=== PATIENT | male | born 1940 | race Caucasian/White ===

== ENCOUNTER 2017-07-12 18:51 | Inpatient (IN) | payer OTHER ==
[2017-07-12 20:20] LABS: Absolute Monocytes 1.1 K/uL (0.1-1.3); Absolute Neutrophil 4.4 K/uL (1.8-8.0); Basophils % 0.9 % (0-1.3); Eosinophils % 1.4 % (0-4.4); Hematocrit 31.1 % (39.6-49.0); Lymphocytes % 26.1 % (15.3-44.8); MCH 29.2 pg (27.0-35.0); MPV 7.7 fL (7.6-11.3); RBC Red Blood Cell Count 3.61 M/uL (4.33-5.43)
[2017-07-12 20:29] LABS: Potassium 5.5 mEq/L (3.6-5.0)
[2017-07-12 20:30] LABS: Albumin 2.8 g/dL (3.2-5.5); Bilirubin Total 0.3 mg/dL (0.3-1.2); Protein, Total 6.9 g/dL (6.0-8.3)
--- NOTE | 2017-07-12 21:17 | RAD REPORT ---
EXAM DESCRIPTION: CT - Abdomen Pelvis W Contrast - 07/12/2017 8:54 pm CLINICAL HISTORY: Abdominal pain /sacral decubitus ulcer COMPARISON: none. TECHNIQUE: Computed axial tomography of the abdomen pelvis was obtained. 100 cc Isovue-300 was admin istered intravenously. Oral contrast was not requested which limits evaluation of bowel. All CT scans are performed using dose optimization technique as appropriate and may include automated exposure control or mA/KV adjustment according to patient size. FINDINGS: Gallstones are seen without gallbladder wall thickening. A diverticulum stems from the duodenum. The liver, spleen, pancreas, and adrenals appear unremarkable. Small bilateral renal calculi are present without hydronephrosis. Mild renal cortical thinning is pre sent perhaps secondary prior inflammation. There is no evidence of diverticulitis. The appendix is normal. A soft tissue ulceration is present adjacent to coccyx. Subtle cortical irregularity and mild scleros is involves the posterior coccyx. Extensive vascular calcifications are present IMPRESSION: Cholelithiasis without cholecystitis . Soft tissue ulceration adjacent to the coccyx. Subtle cortical irregularity and mild sclerosis involv es the posterior coccyx. A mild osteomyelitis is suspected
[2017-07-12] MEDS ORDERED: PIPERACILLIN-TAZO-DEXTROSE,ISO 3.375 GM/50 ML BAG ONE (22:02)
[2017-07-12] MEDS ORDERED: VANCOMYCIN/NS 1 gm 1 GM/250 ML BAG ONE (22:02)
--- NOTE | 2017-07-12 22:02 | RAD REPORT ---
EXAM DESCRIPTION: RAD - Foot Left 3 View - 07/12/2017 8:54 pm CLINICAL HISTORY: Left Foot pain /wound FINDINGS: No fracture or dislocation is seen. Vascular calcifications are present An ulceration involves the posterior hindfoot. An underlying calcaneal destructive lesion is not seen .
[2017-07-12] MEDS ORDERED: ONDANSETRON 4 MG/2 ML VIAL IV PRN (23:44)
--- NOTE | 2017-07-13 01:06 | ER ---
Nurse's Notes [facility] Name: Amari Espinal Sr Age: 76 yrs Sex: Male : 1940 Arrival Date: 07/12/2017 Time: 18:52 Bed 7 Private MD: Diagnosis: Osteomyelitis;Non-healing wound;Sacral decubitus ulcer Presentation: 07/12 19:19 Presenting complaint: Patient states: Pt daughter brought pt in for Low BP, home health bp nurse took BP and it was 70's systolic. Pt is AOx3. Pt has wounds on left heel and sacrum that are dressed by home health. Denies NVD or fever. Transition of care: patient was not received from another setting of care. Onset of symptoms was July 11, 2017. Care prior to arrival: None. 19:19 Method Of Arrival: Wheelchair bp 19:19 Acuity: TEAGAN 3 bp Triage Assessment: 19:22 General: Appears in no apparent distress. uncomfortable, Behavior is calm, cooperative. bp Pain: Complains of pain in sacrum Pain does not radiate. Neuro: Level of Consciousness is awake, alert, obeys commands, Oriented to person, place, time. Cardiovascular: Denies chest pain. Respiratory: Airway is patent Respiratory effort is even, unlabored, Respiratory pattern is regular, symmetrical. GI: No signs and/or symptoms were reported involving the gastrointestinal system. : No signs and/or symptoms were reported regarding the genitourinary system. Derm: Skin is pink, warm \T\ dry. Decubitus located on left sacrum heel(s). Musculoskeletal: Parent/caregiver report the patient having hemiplegia of L side. Historical: - Allergies: 19:22 No Known Allergies; bp - Home Meds: 19:22 Aricept 5 mg Oral tab 1 tab once daily [Active]; aspirin 81 mg Oral chew [Active]; bp atorvastatin 40 mg Oral tab 1 tab once daily [Active]; Eliquis 2.5 mg Oral tab 2 tabs [Active]; famotidine 10 mg Oral tab [Active]; GlycoLax 17 gram/dose Oral powd once daily [Active]; ipratropium bromide 0.02 % inhalation soln [Active]; metoprolol tartrate 25 mg Oral tab 1 tab 2 times per day [Active]; Namenda Oral [Active]; 19:28 donepezil 5 mg oral tab 1 tab once daily [Active]; magnesium oxide 400 mg Oral tab bp [Active]; rosuvastatin 5 mg oral tab 1 tab once daily [Active]; memantine 5 mg oral tab 2 tabs 2 times per day [Active]; carvedilol 6.25 mg oral tab 1 tab 2 times per day [Active]; - PMHx: 19:22 Atrial Fib; COPD; Dementia; hemiplagia affecting left side; Hyperlipidemia; PVD; TIA; bp - Immunization history:: Adult Immunizations up to date. - Social history:: Smoking status: Patient/guardian denies using tobacco. Screenin:25 Abuse screen: Denies threats or abuse. Nutritional screening: No deficits noted. bp Tuberculosis screening: No symptoms or risk factors identified. Fall Risk Fall in past 12 months (25 points). Secondary diagnosis (15 points) Gait- Impaired (20 pts.). Assessment: 19:59 General: see triage assessment. tl2 22:09 Reassessment: Patient appears in no apparent distress at this time. Patient and/or tl2 family updated on plan of care and expected duration. Pain level reassessed. Patient is alert, oriented x 3, equal unlabored respirations, skin warm/dry/pink. pt resting, awaiting further orders, family at bedside. 23:30 Reassessment: Patient appears in no apparent distress at this time. Patient and/or tl2 family updated on plan of care and expected duration. Pain level reassessed. Patient is alert, oriented x 3, equal unlabored respirations, skin warm/dry/pink. 07/13 00:30 Reassessment: Patient appears in no apparent distress at this time. Patient and/or tl2 family updated on plan of care and expected duration. Pain level reassessed. Patient is alert, oriented x 3, equal unlabored respirations, skin warm/dry/pink. 01:02 Reassessment: Dr. Pratt ordered for nurses on floor to call him about specific wound tl2 dressings. Vital Signs: 07/12 19:22 BP 124 / 51; Pulse 80; Resp 20; Temp 98(O); Pulse Ox 100% on R/A; Weight 74.84 kg; bp Height 5 ft. 7 in. (170.18 cm); Pain 4/10; 20:00 BP 123 / 59; Pulse 78; Resp 18; Pulse Ox 100% on R/A; tl2 20:09 BP 121 / 49; Pulse 83; Resp 18; Pulse Ox 99% on R/A; mt 21:06 BP 131 / 66; Pulse 80; Resp 18; Pulse Ox 100% on R/A; mt 22:09 BP 131 / 57; Pulse 78; Resp 18; Pulse Ox 95% on R/A; tl2 22:49 BP 124 / 48; Pulse 74; Resp 18; Pulse Ox 97% on R/A; mt 23:54 BP 141 / 80; Pulse 79; Resp 18; Pulse Ox 98% on R/A; bp 07/13 00:33 BP 147 / 63; Pulse 79; Resp 18; Pulse Ox 98% on R/A; mt 01:03 BP 143 / 59; Pulse 84; Resp 18; Pulse Ox 98% on R/A; tl2 07/12 19:22 Body Mass Index 25.84 (74.84 kg, 170.18 cm) bp ED Course: 07/12 18:52 Patient arrived in ED. al2 19:19 Denys Roach, JARRED is Primary Nurse. bp 19:20 Christopher Ordoñez MD is Attending Physician. ps1 19:21 Triage completed. bp 19:22 Arm band placed on right wrist. bp 19:25 Patient has correct armband on for positive identification. Bed in low position. Call bp light in reach. Side rails up X2. Adult w/ patient. 20:02 Inserted saline lock: 20 gauge in right antecubital area, using aseptic technique. tl2 Blood collected. placed by joseph Rodriguez. 20:03 Radiology exam delayed due to lab results not completed at this time. (BUN/Creatinine). sj 21:00 CT completed. Patient tolerated procedure well. Patient moved to CT via stretcher. Patient moved back from CT. 21:59 Inserted saline lock: 20 gauge in left forearm, using aseptic technique. IV tl2 discontinued, intact, bleeding controlled, No redness/swelling at site. Pressure dressing applied. 07/13 00:29 Efrain Chapa MD is Hospitalizing Provider. ps1 01:03 No provider procedures requiring assistance completed. tl2 01:03 Patient admitted, IV remains in place. tl2 Administered Medications: 07/12 21:58 Drug: Zosyn 3.375 grams Route: IVPB; Infused Over: 60 mins; Site: left forearm; tl2 22:30 Follow up: IV Status: Completed infusion tl2 22:38 Drug: vancoMYCIN 1 grams Route: IVPB; Infused Over: 2 hrs; Site: left forearm; tl2 07/13 00:15 Follow up: IV Status: Completed infusion tl2 Outcome: 00:30 Decision to Hospitalize by Provider. ps1 01:03 Admitted to Med/surg accompanied by tech, family with patient, via stretcher, room 209, tl2 with chart, Report called to ERIKA Daly 01:03 Condition: stable 01:03 Discharge instructions given to patient, family, Instructed on the need for admit. 01:05 Patient left the ED. tl2 Signatures: Nura Pierre Susan sj Knox, Taylor, JARRED RN tl2 Jennifer Yo mt, Brian, RN RN bp Christopher Ordoñez MD MD ps1 Darlene, Katerina julien2
--- NOTE | 2017-07-13 01:06 | EDPHYS ---
Physician Documentation [facility] Name: Amari Espinal Sr Age: 76 yrs Sex: Male : 1940 Arrival Date: 07/12/2017 Time: 18:52 Bed 7 Private MD: ED Physician Christopher Ordoñez HPI: 07/13 00:22 This 76 yrs old Male presents to ER via Wheelchair with complaints of LOW ps1 BLOOD PRESSURE. 00:22 reportedly home healthcare nurse states that he had low blood pressure. On presentation ps1 he states that he feels well and his blood pressure is WNL. Family at bedside state that his doctor was concerned for osteomyelitis in his foot and his decubitus sacral ulcer. She states that he does not get rolled appropriately and it has been a struggle to get the other family members to perform appropriate care. . Historical: - Allergies: 07/12 19:22 No Known Allergies; bp - Home Meds: 19:22 Aricept 5 mg Oral tab 1 tab once daily [Active]; aspirin 81 mg Oral chew [Active]; bp atorvastatin 40 mg Oral tab 1 tab once daily [Active]; Eliquis 2.5 mg Oral tab 2 tabs [Active]; famotidine 10 mg Oral tab [Active]; GlycoLax 17 gram/dose Oral powd once daily [Active]; ipratropium bromide 0.02 % inhalation soln [Active]; metoprolol tartrate 25 mg Oral tab 1 tab 2 times per day [Active]; Namenda Oral [Active]; 19:28 donepezil 5 mg oral tab 1 tab once daily [Active]; magnesium oxide 400 mg Oral tab bp [Active]; rosuvastatin 5 mg oral tab 1 tab once daily [Active]; memantine 5 mg oral tab 2 tabs 2 times per day [Active]; carvedilol 6.25 mg oral tab 1 tab 2 times per day [Active]; - PMHx: 19:22 Atrial Fib; COPD; Dementia; hemiplagia affecting left side; Hyperlipidemia; PVD; TIA; bp - Immunization history:: Adult Immunizations up to date. - Social history:: Smoking status: Patient/guardian denies using tobacco. ROS: 07/13 00:22 Unable to obtain ROS due to baseline dementia. ps1 Exam: 00:22 Constitutional: This is a well developed, well nourished patient who is awake, alert, ps1 and in no acute distress. Head/Face: Normocephalic, atraumatic. Eyes: Pupils equal round and reactive to light, extra-ocular motions intact. Lids and lashes normal. Conjunctiva and sclera are non-icteric and not injected. Chest/axilla: Normal chest wall appearance and motion. Nontender with no deformity. No lesions are appreciated. Cardiovascular: Regular rate and rhythm. No gallops, murmurs, or rubs. Normal PMI, no JVD. No pulse deficits. Respiratory: Lungs have equal breath sounds bilaterally, clear to auscultation and percussion. No rales, rhonchi or wheezes noted. No increased work of breathing, no retractions or nasal flaring. Abdomen/GI: Soft, non-tender, with normal bowel sounds. No distension or tympany. No guarding or rebound. No evidence of tenderness throughout. 00:22 Back: large stage 4 decubitus ulcer on left sacral area. dressed, no purulence. . 00:22 Musculoskeletal/extremity: non-healing wound on heel of left foot with surrounding erythema. Wet dressing. . 00:22 Neuro: contracted extremities and weakness of left side.. Vital Signs: 07/12 19:22 BP 124 / 51; Pulse 80; Resp 20; Temp 98(O); Pulse Ox 100% on R/A; Weight 74.84 kg; bp Height 5 ft. 7 in. (170.18 cm); Pain 4/10; 20:00 BP 123 / 59; Pulse 78; Resp 18; Pulse Ox 100% on R/A; tl2 20:09 BP 121 / 49; Pulse 83; Resp 18; Pulse Ox 99% on R/A; mt 21:06 BP 131 / 66; Pulse 80; Resp 18; Pulse Ox 100% on R/A; mt 22:09 BP 131 / 57; Pulse 78; Resp 18; Pulse Ox 95% on R/A; tl2 22:49 BP 124 / 48; Pulse 74; Resp 18; Pulse Ox 97% on R/A; mt 23:54 BP 141 / 80; Pulse 79; Resp 18; Pulse Ox 98% on R/A; bp 16 00:33 BP 147 / 63; Pulse 79; Resp 18; Pulse Ox 98% on R/A; mt 01:03 BP 143 / 59; Pulse 84; Resp 18; Pulse Ox 98% on R/A; tl2 07/12 19:22 Body Mass Index 25.84 (74.84 kg, 170.18 cm) bp MDM: 07/12 19:57 Patient medically screened. ps1 07/13 00:27 Data reviewed: vital signs, nurses notes, lab test result(s), radiologic studies, CT ps1 scan, plain films. ED course: ESR and imaging c/w osteomyelitis. IVF and antibiotics initiated. Will admit for further evaluation. . 07/12 20:00 Order name: CBC with Diff ps1 07/12 20:00 Order name: CMP ps1 07/12 20:00 Order name: ESR ps1 07/12 20:23 Order name: CBC with Automated Diff; Complete Time: 21:17 EDMS 07/12 20:28 Order name: Comprehensive Metabolic Panel; Complete Time: 21:17 EDMS 07/12 20:38 Order name: Sedimentation Rate, Westergren; Complete Time: 21:17 EDMS 07/12 20:00 Order name: Foot Left 3 View XRAY ps1 07/12 20:00 Order name: CT Abd/Pelvis - W/Contrast ps1 07/12 21:19 Order name: CT; Complete Time: 21:37 EDMS 07/12 22:03 Order name: RAD; Complete Time: 22:13 EDMS Administered Medications: 07/12 21:58 Drug: Zosyn 3.375 grams Route: IVPB; Infused Over: 60 mins; Site: left forearm; tl2 22:30 Follow up: IV Status: Completed infusion tl2 22:38 Drug: vancoMYCIN 1 grams Route: IVPB; Infused Over: 2 hrs; Site: left forearm; tl2 07/13 00:15 Follow up: IV Status: Completed infusion tl2 Disposition: 00:30 Chart complete. ps1 Disposition: 07/13/17 00:30 Hospitalization ordered by Efrain Chapa for Inpatient Admission. Preliminary diagnosis are Osteomyelitis, Non-healing wound, Sacral decubitus ulcer. - Bed requested for Telemetry/MedSurg (Inpatient). - Status is Inpatient Admission. tl2 - Condition is Stable. - Problem is an ongoing problem. - Symptoms have worsened. UTI on Admission? No Signatures: Dispatcher [facility] Kendra Hercules RN RN mw Diana Velázquez RN RN tl2 Denys Roach, RN RN bp Christopher Ordoñez MD MD ps1
[2017-07-13] MEDS ORDERED: FENTANYL CITR 100 MCG/2 ML IV ONE ×2 (01:41→15:47)
[2017-07-13] MEDS ORDERED: LORazepam 2 MG/ML VIAL IV ONE ×2 (01:41→15:46)
[2017-07-13] MEDS: NA CHLORIDE 0.9% 1,000 ML IV SCH ×3 (01:50→20:29)
[2017-07-13] MEDS: Levofloxacin500mg IV 500 MG/100 ML BAG IV SCH ×2 (02:05→23:38)
[2017-07-13 06:17] LABS: Absolute Lymphocytes (CBC) 2.9 K/uL (0.7-4.9); Absolute Monocytes 1.3 K/uL (0.1-1.3); Absolute Neutrophil 4.4 K/uL (1.8-8.0); Basophils % 0.9 % (0-1.3); Eosinophils % 1.8 % (0-4.4); Hematocrit 29.5 % (39.6-49.0); Lymphocytes % 33.2 % (15.3-44.8); MCH 28.1 pg (27.0-35.0); MCV 87.1 fL (80-100); MPV 7.6 fL (7.6-11.3); Monocytes % 14.9 % (3.3-12.3); RBC Red Blood Cell Count 3.39 M/uL (4.33-5.43)
[2017-07-13 06:20] LABS: Potassium 4.5 mEq/L (3.6-5.0)
--- NOTE | 2017-07-13 07:23 | P.HP ---
Certification for Inpatient Patient admitted to: Inpatient With expected LOS: >2 Midnights Patient will require the following post-hospital care: None Practitioner: I am a practitioner with admitting privileges, knowledge of patient current condition, hospital course, and medical plan of care. Services: Services provided to patient in accordance with Admission requirements found in Title 42 Section 412.3 of the Code of Federal Regulations Patient History Date of Service: 07/13/17 Reason for admission: Osteomyelitis History of Present Illness: Patient is a 76-year-old gentleman came into the hospital was worsening erythema of the right foot. Patient has been treated as an outpatient by his manager beauty at [facility]. Patient was scheduled to get a MRI of his foot however this had to be canceled as patient could not be still. He does has significant erythema on the right foot as well as a deep wound to the left heel. He also has some inflammatory changes per his CT scan around his coccyx where his sacral decubitus ulcer is located. Patient be admitted to the hospital for further evaluations of these arterial & diabetic ulcers of his extremities as well as pressure ulcer on his sacrum. Patient has been quite ill the last year. Patient had a stroke and was transfer to [facility]. He was treated and released to [place]. According to the family he developed a sacral decubitus ulcer. He was transferred to our hospital with another stroke. Patient's family decided to take care of him at home. Has a 24/7 caregiver for 9 hr during the day. Patient also has a lot of family that is very involved in his care. Patient is very debilitated and his nourishment has just started picking up after he had dysphagia from a stroke. The her numerous family members with him at this time and they all seem to be fairly aware of his medical conditions. They also seem very involved in his day-to-day care. Allergies No Known Allergies Allergy (Verified 07/13/17 02:35) Home Medications: Alprazolam [Alprazolam] 1 mg PO DAILY PRN 07/13/17 Apixaban [Eliquis] 5 mg PO BID 07/13/17 Aspirin [Aspirin] 81 mg PO DAILY 07/13/17 Carvedilol [Carvedilol] 1 tab PO BID 07/13/17 Cefuroxime Axetil [Cefuroxime] 500 mg PO BID 07/13/17 Collagenase [Santyl Ointment*] 1 appl TOP DAILY 07/13/17 Donepezil HCl [Donepezil HCl] 5 mg PO DAILY 07/13/17 Famotidine [Pepcid*] 1 tab PO DAILY 07/13/17 Ipratropium/Albuterol Sulfate [Iprat-Albut 0.5-3(2.5) mg/3 ml] 1 puff IH QID Magnesium Oxide [Mag 0X Tab] 400 mg PO DAILY 07/13/17 Memantine HCl [Memantine HCl] 5 mg PO BID 07/13/17 Multivitamin [Daily Multiple Vitamin] 1 each PO DAILY 07/13/17 Rosuvastatin Calcium [Rosuvastatin Calcium] 5 mg PO BEDTIME 07/13/17 Zinc Sulfate [Zinc Sulfate*] 220 mg PO DAILY 07/13/17 - Past Medical/Surgical History Has patient received pneumonia vaccine in the past: Yes Diabetic: No -: Stroke -: Hypertension -: Dementia -: Dyslipidemia -: COPD -: Right lower extremity peripheral arterial stent - Family History Sister Medical History: Cancer - Social History Smoking Status: Former smoker Alcohol use: No CD- Drugs: No Caffeine use: Yes Place of Residence: Home Review of Systems 10-point ROS is otherwise unremarkable Physical Examination - Vital Signs Temperature: 98.3 F Blood Pressure: 129/63 Pulse: 78 Respirations: 18 Pulse Ox (%): 95 - Physical Exam General: Alert, In no apparent distress, Oriented x3 HEENT: Atraumatic, Normocephalic Neck: Supple, 2+ carotid pulse no bruit, JVD not distended Respiratory: Clear to auscultation bilaterally, Normal air movement Cardiovascular: Regular rate/rhythm, Normal S1 S2, Systolic murmur Gastrointestinal: Normal bowel sounds, Soft and benign, Non-distended Musculoskeletal: No clubbing, No swelling Integumentary: Diabetic ulcer, Pressure ulcer, Arterial ulcer Neurological: Normal speech, Sensation intact, Cranial nerves 3-12 intact, Abnormal strength, Abnormal affect (Black) - Studies Laboratory Data (last 24 hrs) 07/12/17 20:05: Sodium 131 L, Potassium 5.5 H, BUN 21 H, Creatinine 1.22, Glucose 111, Total Bilirubin 0.3, AST 28, ALT 19, Alkaline Phosphatase 62 07/12/17 20:05: WBC 7.7, Hgb 10.6 L, Hct 31.1 L, Plt Count 339 Assessment & Plan - Problems (Diagnosis) (1) CVA (cerebral vascular accident) Current Visit: Yes Status: Acute (2) Osteomyelitis Current Visit: Yes Status: Acute (3) Sacral decubitus ulcer, stage IV Current Visit: Yes Status: Acute (4) Diabetic ulcer of both feet Current Visit: Yes Status: Acute (5) Arterial insufficiency with ischemic ulcer Current Visit: Yes Status: Acute (6) Cachectic Current Visit: Yes Status: Acute - Plan Plan: 1. MRI of the foot and the coccyx area to evaluate for osteomyelitis 2. IV antibiotics 3. Physical therapy evaluation after MRI completed 4. Wound care 5. Surgery evaluation as left foot may need to be debrided 6. Neuro checks 7. Strict blood sugar control 8. Arterial Doppler 9. GI and DVT prophylaxis Discharge Plan: Home Plan to discharge in: Greater than 2 days - Advance Directives Does patient have a Living Will: Yes Does patient have a Durable POA for Healthcare: Yes - Code Status/Comfort Care Code Status Assessed: Yes Code Status: Full Code Critical Care: No Time Spent Managing PTS Care (In Minutes): 50
[2017-07-13] MEDS: COLLAGENASE 30 GM OINTMENT TOP SCH (09:00)
[2017-07-13] MEDS: CARVEDILOL 6.25 MG TAB PO SCH ×2 (09:00→20:29)
[2017-07-13] MEDS ORDERED: HOME MED 1 EA UNK (Memantine Hcl [Memantine Hcl] 5 MG) PO SCH (09:00)
[2017-07-13] MEDS ORDERED: DONEPEZIL HCL 5 MG TAB PO SCH (09:00)
[2017-07-13] MEDS ORDERED: METOPROLOL XL 25 MG TAB PO SCH (09:00)
[2017-07-13] MEDS: HOME MED 1 EA UNK (Memantine Hcl [Namenda Xr] 1 CAP) PO SCH (09:00)
[2017-07-13] MEDS: APIXABAN 5 MG TABLET PO SCH ×2 (09:00→20:30)
[2017-07-13] MEDS: MAGNESIUM OXIDE 400 MG TAB PO SCH (09:32)
[2017-07-13] MEDS: ZINC SULFATE 220 MG CAP PO SCH (09:32)
[2017-07-13] MEDS: DONEPEZIL HCL 5 MG TAB PO SCH (09:32)
[2017-07-13] MEDS: MULTIVIT W/ MINERAL TAB PO SCH (09:32)
--- NOTE | 2017-07-13 10:25 | P.PN ---
Subjective Date of Service: 07/13/17 Primary Care Provider: Dr. Frederick Chief Complaint: Osteomyelitis Subjective: Other (Patient with dementia and history of CVA. Patient with multiple ulcers) Physical Examination - Vital Signs Temperature: 98.6 F Blood Pressure: 90/55 Pulse: 80 Respirations: 18 Pulse Ox (%): 96 - Physical Exam General: Alert, In no apparent distress, Cooperative, Demented HEENT: Atraumatic, Mucous membr. moist/pink Neck: Supple, No Thyromegaly Respiratory: Clear to auscultation bilaterally, Normal air movement Cardiovascular: Normal pulses, Regular rate/rhythm Gastrointestinal: Normal bowel sounds, Soft and benign, Non-distended Integumentary: Other (Stage IV sacral decubitus ulcer noted. Patient also has a ulcer to the left heel. It measures the size of a half-dollar coin. Black eschar noted. Patient also has erythema tenderness to the right foot primarily to the 3rd and 2nd digits. A small ulcer is noted.) Neurological: Normal speech, Normal tone, Dementia - Studies Laboratory Data (last 24 hrs) 07/12/17 20:05: Sodium 131 L, Potassium 5.5 H, BUN 21 H, Creatinine 1.22, Glucose 111, Total Bilirubin 0.3, AST 28, ALT 19, Alkaline Phosphatase 62 07/12/17 20:05: WBC 7.7, Hgb 10.6 L, Hct 31.1 L, Plt Count 339 Medications List Reviewed: Yes Assessment & Plan - Problems (Diagnosis) (1) Hypertension Current Visit: Yes Status: Chronic Plan: Will continue with his medication. Will hold medication if blood pressure systolic less than 120 Qualifiers: Hypertension type: essential hypertension Qualified Code(s): I10 - Essential (primary) hypertension (2) Hyperlipidemia Current Visit: Yes Status: Chronic Plan: Will continue with his medication. Qualifiers: Hyperlipidemia type: unspecified Qualified Code(s): E78.5 - Hyperlipidemia , unspecified (3) History of CVA (cerebrovascular accident) Current Visit: Yes Status: Chronic Plan: Patient with history of CVA. Patient on aspirin, statin medication. Patient also on Eliquis for history of atrial fibrillation. Patient currently stable this time. (4) Ulcer of left heel Current Visit: Yes Status: Acute Plan: Left heel ulcer noted. Likely osteomyelitis. MRI pending. Patient will need IV antibiotic therapy for 6 weeks. Patient currently on vancomycin and and Levaquin. Case discussed with daughter who has power of trial attorney. Will pursue long-term acute care facility placement. (5) Cellulitis of right foot Current Visit: Yes Status: Acute Plan: Cellulitis and ulcer noted to the right foot. MRI pending. Also suspect osteomyelitis. Will continue with IV antibiotic therapy. Will pursue long- term acute care facility placement (6) DM foot ulcer Current Visit: Yes Status: Acute Plan: Ulcer noted to the foot with cellulitis. Will continue with above plan of care including antibiotic therapy and long-term acute care facility placement. Qualifiers: Diabetic foot ulcer location: toe Diabetes mellitus type: type 2 Laterality: right Non-pressure ulcer stage: with other severity Qualified Code(s): E11.621 - Type 2 diabetes mellitus with foot ulcer; L97.518 - Non- pressure chronic ulcer of other part of right foot with other specified severity ; L97.518 - Non-pressure chronic ulcer of other part of right foot with other specified severity; L97.518 - Non-pressure chronic ulcer of other part of right foot with other specified severity; L97.518 - Non-pressure chronic ulcer of other part of right foot with other specified severity (7) Osteomyelitis Current Visit: Yes Status: Acute Plan: Suspect osteomyelitis of multiple wounds including sicker decubitus ulcer, left heel, right foot. Patient will need long-term IV antibiotic therapy for at least 6 weeks. Patient will need aggressive wound care. Patient currently on vancomycin and Levaquin. Case discussed with power of trial attorney. Will pursue long-term acute care facility placement. Qualifiers: Osteomyelitis type: unspecified type Osteomyelitis location: unspecified site Qualified Code(s): M86.9 - Osteomyelitis, unspecified (8) Sacral decubitus ulcer, stage IV Current Visit: Yes Status: Acute Plan: Continue with above plan of care. (9) Atrial fibrillation Current Visit: Yes Status: Chronic Plan: Patient with history of atrial fibrillation. Will continue with chronic anti coagulation therapy. Will order echocardiogram to further assess Qualifiers: Atrial fibrillation type: paroxysmal Qualified Code(s): I48.0 - Paroxysmal atrial fibrillation (10) Dysphagia Current Visit: Yes Status: Chronic Plan: Patient with history of dysphagia. May need to reassess swallowing prior to feeding. (11) Chronic anticoagulation Current Visit: Yes Status: Chronic Plan: Will continue with chronic anti coagulation therapy-Eliquis. (12) Anemia Current Visit: Yes Status: Chronic Plan: Patient has anemia. Will check iron and B12 studies. Will monitor closely. Patient on chronic anti coagulation therapy. Qualifiers: Anemia type: unspecified type Qualified Code(s): D64.9 - Anemia, unspecified (13) Hyponatremia Current Visit: Yes Status: Acute Plan: This is likely from falling depletion. Will continue with IV fluids. Discharge Plan: LTAC Plan to discharge in: 24 Hours - Code Status/Comfort Care Code Status Assessed: Yes Time Spent Managing Pts Care (In Minutes): 55
[2017-07-13 13:17] LABS: A1c Component 0.32 mg/dL; Hemoglobin A1c 5.2 % (4-6.0)
--- NOTE | 2017-07-13 13:19 | ECHO ---
HEIGHT: 5 ft 7 in WEIGHT: 125 lb 1 oz DATE OF STUDY: 07/13/[address]: Eliot Ricketts DO 2-DIMENSIONAL: YES M.MODE: YES DOPPLER: NO COLOR FLOW: NO TDS: YES PORTABLE: NO DEFINITY: NO BUBBLE STUDY: NO DIAGNOSIS: ATRIAL FIBRILLATION, HYPERTENSION, HISTORY OF CEREBRAL VASCULAR ACCIDENT CARDIAC HISTORY: CATHERIZATION: NO SURGERY: NO PROSTHETIC VALVE: NO PACEMAKER: NO MEASUREMENTS (cm) DIASTOLIC (NORMALS) SYSTOLIC (NORMALS) IVSd 0.7 (0.6-1.2) LA Diam 3.7 (1.9-4.0) LVEF 61% LVIDd 4.6 (3.5-5.7) LVIDs 3.1 (2.0-3.5) %FS 33% LVPWd 1.0 (0.6-1.2) Ao Diam 2.6 (2.0-3.7) 2 DIMENSIONAL ASSESSMENT: RIGHT ATRIUM: LEFT ATRIUM: RIGHT VENTRICLE: LEFT VENTRICLE: TRICUSPID VALVE: MITRAL VALVE: PULMONIC VALVE: AORTIC VALVE: PERICARDIAL EFFUSION: AORTIC ROOT: LEFT VENTRICULAR WALL MOTION: NORMAL DOPPLER/COLOR FLOW: COMMENTS: NORMAL LEFT VENTRICULAR EJECTION FRACTION. ATRIAL FIBRILLATION. TECHNICALLY DIFFICULT STUDY. TECHNOLOGIST: Justin ADAIR
--- NOTE | 2017-07-13 15:10 | RAD REPORT ---
EXAM DESCRIPTION: RAD - Barium Swallow Modified - 07/13/2017 3:04 pm CLINICAL HISTORY: Dysphagia COMPARISON: None. TECHNIQUE: The patient was given liquid, semi-solid and solid forms of barium. Lateral view fluorosc opic imaging was performed in conjunction with [facility]. FINDINGS: LARYNGEAL PENETRATION ASPIRATION WITH THIN LIQUID WITH COUGH MILD PHARYNGEAL RESIDUE - VALLECULAR WITH NECTAR DELAYED SWALLOW REFLEX IMPRESSION: Positive for aspiration with thin liquids.
[2017-07-13] MEDS: ROSUVASTATIN 10 MG TAB PO SCH (20:28)
[2017-07-13] MEDS ORDERED: ATORVASTATIN 40 MG TAB PO SCH (21:00)
[2017-07-13] MEDS ORDERED: VANCOMYCIN 1GM/D5W 1 GM/200 ML BAG IV SCH (23:00)
[2017-07-13] MEDS: VANCOMYCIN/NS 1 gm 1 GM/250 ML BAG IV SCH (23:38)
[2017-07-14] MEDS: NA CHLORIDE 0.9% 1,000 ML IV SCH (05:45)
[2017-07-14 05:50] LABS: Hematocrit 31.3 % (39.6-49.0); MCH 28.5 pg (27.0-35.0); MPV 7.9 fL (7.6-11.3)
[2017-07-14 05:52] LABS: Bicarbonate 25 mEq/L (21-31); Potassium 4.1 mEq/L (3.6-5.0); Sodium Level 127 mEq/L (135-145)
[2017-07-14 05:54] LABS: BUN Blood Urea Nitrogen 10 mg/dL (6-20); Glomerular Filtration Rate > 90 mL/min (=/>90); Glucose Level 83 mg/dL (65-120); Magnesium 1.8 mg/dL (1.8-2.5)
[2017-07-14] MEDS: PANTOPRAZOLE 40MG TABLET PO SCH (06:31)
[2017-07-14] MEDS ORDERED: MAGNESIUM SULFATE 1 gm IVPB 1 GM/100 ML BAG IV ONE (08:00)
[2017-07-14] MEDS: HOME MED 1 EA UNK (Memantine Hcl [Namenda Xr] 1 CAP) PO SCH (09:00)
[2017-07-14] MEDS: MEMANTINE HCL 10 MG TABLET PO SCH ×2 (09:09→22:47)
[2017-07-14] MEDS: CARVEDILOL 6.25 MG TAB PO SCH ×2 (09:10→22:44)
[2017-07-14] MEDS: DONEPEZIL HCL 5 MG TAB PO SCH (09:10)
[2017-07-14] MEDS: MAGNESIUM OXIDE 400 MG TAB PO SCH (09:10)
[2017-07-14] MEDS: ASPIRIN 81 MG CHEWABLE TABLET PO SCH (09:10)
[2017-07-14] MEDS: MULTIVIT W/ MINERAL TAB PO SCH (09:10)
[2017-07-14] MEDS: ZINC SULFATE 220 MG CAP PO SCH (09:11)
[2017-07-14] MEDS: APIXABAN 5 MG TABLET PO SCH ×2 (09:11→22:46)
[2017-07-14] MEDS ORDERED: LACTULOSE 20 GM/30 ML UCUP PO PRN (10:03)
--- NOTE | 2017-07-14 10:03 | P.PN ---
Subjective Date of Service: 07/14/17 Primary Care Provider: Dr. Frederick Chief Complaint: Osteomyelitis Subjective: Other (Patient stable this time. Patient with dementia. Patient not able to get MRI due to his agitation.) Physical Examination - Vital Signs Temperature: 97.0 F Blood Pressure: 139/71 Pulse: 101 Respirations: 18 Pulse Ox (%): 99 - Physical Exam General: Alert, Demented HEENT: Atraumatic Neck: Supple Respiratory: Clear to auscultation bilaterally, Normal air movement Cardiovascular: Normal pulses, Regular rate/rhythm Gastrointestinal: Normal bowel sounds, Soft and benign, Non-distended Musculoskeletal: No tenderness, No warmth Integumentary: Other (Ulcer to the sacral region unchanged. Ulcer to the left heel unchanged. Erythema to the right foot primarily to the 2nd 3rd digits improved.) Neurological: Normal speech, Normal strength at 5/5 x4 extr, Normal tone, Dementia - Studies Medications List Reviewed: Yes Assessment & Plan - Problems (Diagnosis) (1) Hypertension Current Visit: Yes Status: Chronic Plan: Will continue with his medication. Will hold medication if blood pressure systolic less than 120 Qualifiers: Hypertension type: essential hypertension Qualified Code(s): I10 - Essential (primary) hypertension (2) Hyperlipidemia Current Visit: Yes Status: Chronic Plan: Will continue with his medication. Qualifiers: Hyperlipidemia type: unspecified Qualified Code(s): E78.5 - Hyperlipidemia , unspecified (3) History of CVA (cerebrovascular accident) Current Visit: Yes Status: Chronic Plan: Patient with history of CVA. Patient on aspirin, statin medication. Patient also on Eliquis for history of atrial fibrillation. Patient currently stable this time. (4) Ulcer of left heel Current Visit: Yes Status: Acute Plan: Left heel ulcer noted. Likely osteomyelitis. Patient was not able to get MRI due to his dementia. Osteomyelitis noted to the sacral region. Patient will need IV antibiotic therapy for 6 weeks. Patient currently on vancomycin and Levaquin. Will discuss case with infectious disease. Patient being evaluated for long-term acute care facility placement. Case discussed with daughter yesterday who agrees with plan. They prefer this rather than him going to a care home. This will likely occur on Sunday. Will order PICC line. (5) Cellulitis of right foot Current Visit: Yes Status: Acute Plan: Cellulitis and ulcer noted to the right foot. This has improved. Suspect osteomyelitis. Continue with above plan of care. (6) DM foot ulcer Current Visit: Yes Status: Acute Plan: Ulcer noted to the foot with cellulitis. Will continue with above plan of care including antibiotic therapy and long-term acute care facility placement. Qualifiers: Diabetic foot ulcer location: toe Diabetes mellitus type: type 2 Laterality: right Non-pressure ulcer stage: with other severity Qualified Code(s): E11.621 - Type 2 diabetes mellitus with foot ulcer; L97.518 - Non- pressure chronic ulcer of other part of right foot with other specified severity ; L97.518 - Non-pressure chronic ulcer of other part of right foot with other specified severity; L97.518 - Non-pressure chronic ulcer of other part of right foot with other specified severity; L97.518 - Non-pressure chronic ulcer of other part of right foot with other specified severity (7) Osteomyelitis Onset Date: 07/13/17 Current Visit: Yes Status: Acute Plan: Suspect osteomyelitis of multiple wounds including sacral decubitus ulcer, left heel, right foot. Patient will need long-term IV antibiotic therapy for at least 6 weeks. Patient will need aggressive wound care. Patient currently on vancomycin and Levaquin. Case discussed with power of trademark attorney. Will pursue long-term acute care facility placement. PICC line ordered Qualifiers: Osteomyelitis type: unspecified type Osteomyelitis location: unspecified site Qualified Code(s): M86.9 - Osteomyelitis, unspecified (8) Sacral decubitus ulcer, stage IV Current Visit: Yes Status: Acute Plan: Continue with above plan of care. (9) Atrial fibrillation Current Visit: Yes Status: Chronic Plan: Patient with history of atrial fibrillation. Will continue with chronic anti coagulation therapy. Echocardiogram unremarkable. Qualifiers: Atrial fibrillation type: paroxysmal Qualified Code(s): I48.0 - Paroxysmal atrial fibrillation (10) Dysphagia Current Visit: Yes Status: Chronic Plan: Patient with history of dysphagia. Patient had modified barium swallow. Patient will continue with speech recommendation. (11) Chronic anticoagulation Current Visit: Yes Status: Chronic Plan: Will continue with chronic anti coagulation therapy-Eliquis. (12) Anemia Current Visit: Yes Status: Chronic Plan: Patient has anemia. Iron and B12 deficiency noted. Patient also on chronic anti coalition therapy. Will start replacement supplementation. Qualifiers: Anemia type: iron deficiency Iron deficiency anemia type: unspecified iron deficiency Qualified Code(s): D50.9 - Iron deficiency anemia, unspecified (13) Hyponatremia Current Visit: Yes Status: Acute Plan: Will hold IV fluids at this time. Will start salt tablets. Discharge Plan: LTAC Plan to discharge in: 48 Hours Time Spent Managing Pts Care (In Minutes): 55
[2017-07-14] MEDS: MORPHINE 2 MG/ML SYR IV PRN (12:56)
[2017-07-14] MEDS: COLLAGENASE 30 GM OINTMENT TOP SCH (13:44)
[2017-07-14] MEDS: SODIUM CHLORIDE 1 GM TAB PO SCH (17:00)
--- NOTE | 2017-07-14 18:29 | RAD REPORT ---
EXAM DESCRIPTION: RAD - Foot Right 3 View - 07/14/2017 6:16 pm CLINICAL HISTORY: Right foot pain FINDINGS: No fracture or dislocation is seen. The bones are osteoporotic no bony destructive lesion is seen
[2017-07-14] MEDS: ROSUVASTATIN 10 MG TAB PO SCH (22:45)
[2017-07-14] MEDS: FERROUS SULFATE 325 MG TAB PO SCH (22:46)
[2017-07-14] MEDS: VANCOMYCIN/NS 1 gm 1 GM/250 ML BAG IV SCH (22:59)
[2017-07-14] MEDS: Levofloxacin500mg IV 500 MG/100 ML BAG IV SCH (22:59)
[2017-07-15] MEDS: ACETAMINOPHEN 500 MG TAB PO PRN ×2 (04:53→21:30)
[2017-07-15 05:05] LABS: Hematocrit 28.4 % (39.6-49.0); MCV 85.8 fL (80-100); MPV 7.6 fL (7.6-11.3)
[2017-07-15 05:12] LABS: Bicarbonate 26 mEq/L (21-31); Potassium 4.4 mEq/L (3.6-5.0); Sodium Level 129 mEq/L (135-145)
[2017-07-15 05:13] LABS: BUN Blood Urea Nitrogen 15 mg/dL (6-20); Glomerular Filtration Rate > 90 mL/min (=/>90); Glucose Level 90 mg/dL (65-120); Magnesium 1.9 mg/dL (1.8-2.5)
[2017-07-15] MEDS: PANTOPRAZOLE 40MG TABLET PO SCH (06:15)
[2017-07-15] MEDS: MORPHINE 2 MG/ML SYR IV PRN (09:00)
[2017-07-15] MEDS: COLLAGENASE 30 GM OINTMENT TOP SCH (09:00)
--- NOTE | 2017-07-15 09:10 | P.PN ---
Subjective Date of Service: 07/15/17 Primary Care Provider: Dr. Frederick Chief Complaint: Osteomyelitis Subjective: Demented Physical Examination - Vital Signs Temperature: 98.5 F Blood Pressure: 154/66 Pulse: 75 Respirations: 18 Pulse Ox (%): 95 - Physical Exam General: Alert, In no apparent distress, Demented (Moderate to severe) HEENT: Atraumatic, Mucous membr. moist/pink Neck: Supple Respiratory: Clear to auscultation bilaterally, Normal air movement Cardiovascular: Normal pulses, Regular rate/rhythm Gastrointestinal: Normal bowel sounds, Soft and benign, Non-distended Musculoskeletal: No tenderness, No warmth Integumentary: Other (Ulcers bandaged at this time.) Neurological: Normal speech, Normal strength at 5/5 x4 extr, Normal tone, Dementia - Studies Medications List Reviewed: Yes Assessment & Plan - Problems (Diagnosis) (1) Hypertension Current Visit: Yes Status: Chronic Plan: Will continue with his medication. Will hold medication if blood pressure systolic less than 120. Overall stable. Qualifiers: Hypertension type: essential hypertension Qualified Code(s): I10 - Essential (primary) hypertension (2) Hyperlipidemia Current Visit: Yes Status: Chronic Plan: Will continue with his medication. Qualifiers: Hyperlipidemia type: unspecified Qualified Code(s): E78.5 - Hyperlipidemia , unspecified (3) History of CVA (cerebrovascular accident) Current Visit: Yes Status: Chronic Plan: Patient with history of CVA. Patient on aspirin, statin medication. Patient also on Eliquis for history of atrial fibrillation. Patient currently stable this time. (4) Ulcer of left heel Current Visit: Yes Status: Acute Plan: Left heel ulcer noted. Likely osteomyelitis. Patient was not able to get MRI due to his dementia. Osteomyelitis noted to the sacral region. Patient will need IV antibiotic therapy for 6 weeks. Patient currently on vancomycin and Levaquin. Patient evaluated for long-term acute care facility placement. Anticipate transfer to a facility tomorrow. Will try to get a PICC line in place. Patient will need aggressive wound care. (5) Cellulitis of right foot Current Visit: Yes Status: Acute Plan: Cellulitis and ulcer noted to the right foot. This has improved. Suspect osteomyelitis. Continue with above plan of care. Will pursue long-term acute care facility placement for aggressive wound care and long-term IV antibiotic therapy. Family is agreeable to this. (6) DM foot ulcer Current Visit: Yes Status: Acute Plan: Ulcer noted to the foot with cellulitis. Will continue with above plan of care including antibiotic therapy and long-term acute care facility placement. Qualifiers: Diabetic foot ulcer location: toe Diabetes mellitus type: type 2 Laterality: right Non-pressure ulcer stage: with other severity Qualified Code(s): E11.621 - Type 2 diabetes mellitus with foot ulcer; L97.518 - Non- pressure chronic ulcer of other part of right foot with other specified severity ; L97.518 - Non-pressure chronic ulcer of other part of right foot with other specified severity; L97.518 - Non-pressure chronic ulcer of other part of right foot with other specified severity; L97.518 - Non-pressure chronic ulcer of other part of right foot with other specified severity (7) Osteomyelitis Onset Date: 07/13/17 Current Visit: Yes Status: Acute Plan: Suspect osteomyelitis of multiple wounds including sacral decubitus ulcer, left heel, right foot. Patient will need long-term IV antibiotic therapy for at least 6 weeks. Patient will need aggressive wound care. Patient currently on vancomycin and Levaquin. Case discussed with power of director of spa and guest experience and agrees with current plan. Will pursue long-term acute care facility placement. PICC line ordered. Transfer to LTAC likely tomorrow. Qualifiers: Osteomyelitis type: unspecified type Osteomyelitis location: unspecified site Qualified Code(s): M86.9 - Osteomyelitis, unspecified (8) Sacral decubitus ulcer, stage IV Current Visit: Yes Status: Acute Plan: Continue with above plan of care. (9) Atrial fibrillation Current Visit: Yes Status: Chronic Plan: Patient with history of atrial fibrillation. Will continue with chronic anti coagulation therapy. Echocardiogram unremarkable. Qualifiers: Atrial fibrillation type: paroxysmal Qualified Code(s): I48.0 - Paroxysmal atrial fibrillation (10) Dysphagia Current Visit: Yes Status: Chronic Plan: Patient with history of dysphagia. Patient had modified barium swallow. Patient will continue with speech recommendation. (11) Chronic anticoagulation Current Visit: Yes Status: Chronic Plan: Will continue with chronic anti coagulation therapy-Eliquis. (12) Anemia Current Visit: Yes Status: Chronic Plan: Patient has anemia. Iron and B12 deficiency noted. Patient also on chronic anti coalition therapy. Will continue with supplementation. Qualifiers: Anemia type: iron deficiency Iron deficiency anemia type: unspecified iron deficiency Qualified Code(s): D50.9 - Iron deficiency anemia, unspecified (13) Hyponatremia Current Visit: Yes Status: Acute Plan: Will hold IV fluids at this time. Will continue with salt tablets. This has improved. Encourage oral intake. Discharge Plan: LTAC Plan to discharge in: 24 Hours Time Spent Managing Pts Care (In Minutes): 55
[2017-07-15] MEDS: ZINC SULFATE 220 MG CAP PO SCH (10:52)
[2017-07-15] MEDS: ASPIRIN 81 MG CHEWABLE TABLET PO SCH (10:52)
[2017-07-15] MEDS: CYANOCOBALAMIN 1,000 MCG TAB PO SCH (10:52)
[2017-07-15] MEDS: MAGNESIUM OXIDE 400 MG TAB PO SCH (10:52)
[2017-07-15] MEDS: MEMANTINE HCL 10 MG TABLET PO SCH ×2 (10:52→21:25)
[2017-07-15] MEDS: DOCUSATE CALCIUM 240 MG CAP PO SCH (10:52)
[2017-07-15] MEDS: SODIUM CHLORIDE 1 GM TAB PO SCH ×2 (10:52→17:46)
[2017-07-15] MEDS: FERROUS SULFATE 325 MG TAB PO SCH ×2 (10:52→21:24)
[2017-07-15] MEDS: MULTIVIT W/ MINERAL TAB PO SCH (10:53)
[2017-07-15] MEDS: DONEPEZIL HCL 5 MG TAB PO SCH (10:53)
[2017-07-15] MEDS: CARVEDILOL 6.25 MG TAB PO SCH ×2 (10:53→21:28)
[2017-07-15] MEDS: APIXABAN 5 MG TABLET PO SCH ×2 (10:53→21:31)
[2017-07-15] MEDS: VANCOMYCIN/NS 1 gm 1 GM/250 ML BAG IV SCH (17:46)
[2017-07-15] MEDS ORDERED: METHYLPREDNISOLONE 125 MG INJ IV ONE (19:50)
[2017-07-15] MEDS: IPRATROPIUM BROM 0.5MG/2.5ML NEB SCH (20:15)
[2017-07-15] MEDS: ALBUTEROL 2.5 MG/3 ML NEB SOL NEB SCH (20:15)
--- NOTE | 2017-07-15 20:21 | RAD REPORT ---
EXAM DESCRIPTION: RAD - Chest Single View - 07/15/2017 8:14 pm CLINICAL HISTORY: Shortness of breath. COMPARISON: 04/24/2017, 04/22/2017 FINDINGS: Portable technique limits examination quality. Mild diffuse COPD is present. The heart is normal in size. No displaced fractures.Tortuous thoracic a yomaira. Evidence of previous right rotator cuff repair. IMPRESSION: COPD without acute infiltrate is seen.
[2017-07-15] MEDS: ROSUVASTATIN 10 MG TAB PO SCH (21:24)
[2017-07-15] MEDS: Levofloxacin500mg IV 500 MG/100 ML BAG IV SCH (23:44)
[2017-07-15] MEDS ORDERED: NA CHLORIDE 0.9% 500 ML ONE (23:54)
[2017-07-16] MEDS: ALBUTEROL 2.5 MG/3 ML NEB SOL NEB SCH ×3 (01:05→14:39)
[2017-07-16] MEDS: IPRATROPIUM BROM 0.5MG/2.5ML NEB SCH ×3 (01:05→14:39)
[2017-07-16] MEDS: MORPHINE 2 MG/ML SYR IV PRN (03:43)
[2017-07-16 06:08] LABS: Hematocrit 30.5 % (39.6-49.0); MCH 28.8 pg (27.0-35.0); MCV 86.5 fL (80-100); RBC Red Blood Cell Count 3.53 M/uL (4.33-5.43)
[2017-07-16 06:10] LABS: BUN Blood Urea Nitrogen 16 mg/dL (6-20)
[2017-07-16] MEDS: PANTOPRAZOLE 40MG TABLET PO SCH (06:13)
[2017-07-16 06:46] LABS: Bicarbonate 27 mEq/L (21-31); Glomerular Filtration Rate > 90 mL/min (=/>90); Glucose Level 140 mg/dL (65-120); Magnesium 1.9 mg/dL (1.8-2.5); Sodium Level 131 mEq/L (135-145)
[2017-07-16 06:47] LABS: Potassium 5.6 mEq/L (3.6-5.0)
[2017-07-16] MEDS: COLLAGENASE 30 GM OINTMENT TOP SCH (09:00)
[2017-07-16] MEDS: CYANOCOBALAMIN 1,000 MCG TAB PO SCH (09:24)
[2017-07-16] MEDS: CARVEDILOL 6.25 MG TAB PO SCH (09:24)
[2017-07-16] MEDS: APIXABAN 5 MG TABLET PO SCH (09:24)
[2017-07-16] MEDS: MEMANTINE HCL 10 MG TABLET PO SCH (09:24)
[2017-07-16] MEDS: MULTIVIT W/ MINERAL TAB PO SCH (09:24)
[2017-07-16] MEDS: ZINC SULFATE 220 MG CAP PO SCH (09:24)
[2017-07-16] MEDS: ASPIRIN 81 MG CHEWABLE TABLET PO SCH (09:24)
[2017-07-16] MEDS: MAGNESIUM OXIDE 400 MG TAB PO SCH (09:24)
[2017-07-16] MEDS: SODIUM CHLORIDE 1 GM TAB PO SCH ×2 (09:24→16:17)
[2017-07-16] MEDS: FERROUS SULFATE 325 MG TAB PO SCH (09:24)
[2017-07-16] MEDS: DONEPEZIL HCL 5 MG TAB PO SCH (09:24)
[2017-07-16] MEDS: DOCUSATE CALCIUM 240 MG CAP PO SCH (09:24)
[2017-07-16] MEDS: VANCOMYCIN/NS 1 gm 1 GM/250 ML BAG IV SCH (11:05)
--- NOTE | 2017-07-16 15:49 | P.DS ---
Admission Date: 07/13/17 Discharge Date: 07/16/17 Primary Care Provider: Dr. Frederick Disposition: [facility] Discharge Condition: GOOD Reason for Admission: Osteomyelitis - Problems (1) Hypertension Current Visit: Yes Status: Chronic Qualifiers: Hypertension type: essential hypertension Qualified Code(s): I10 - Essential (primary) hypertension (2) Hyperlipidemia Current Visit: Yes Status: Chronic Qualifiers: Hyperlipidemia type: unspecified Qualified Code(s): E78.5 - Hyperlipidemia , unspecified (3) History of CVA (cerebrovascular accident) Current Visit: Yes Status: Chronic (4) Ulcer of left heel Current Visit: Yes Status: Acute (5) Cellulitis of right foot Current Visit: Yes Status: Acute (6) DM foot ulcer Current Visit: Yes Status: Acute Qualifiers: Diabetic foot ulcer location: toe Diabetes mellitus type: type 2 Laterality: right Non-pressure ulcer stage: with other severity Qualified Code(s): E11.621 - Type 2 diabetes mellitus with foot ulcer; L97.518 - Non- pressure chronic ulcer of other part of right foot with other specified severity ; L97.518 - Non-pressure chronic ulcer of other part of right foot with other specified severity; L97.518 - Non-pressure chronic ulcer of other part of right foot with other specified severity; L97.518 - Non-pressure chronic ulcer of other part of right foot with other specified severity (7) Osteomyelitis Onset Date: 07/13/17 Current Visit: Yes Status: Acute Qualifiers: Osteomyelitis type: unspecified type Osteomyelitis location: unspecified site Qualified Code(s): M86.9 - Osteomyelitis, unspecified (8) Sacral decubitus ulcer, stage IV Current Visit: Yes Status: Acute (9) Atrial fibrillation Current Visit: Yes Status: Chronic Qualifiers: Atrial fibrillation type: paroxysmal Qualified Code(s): I48.0 - Paroxysmal atrial fibrillation (10) Dysphagia Current Visit: Yes Status: Chronic (11) Chronic anticoagulation Current Visit: Yes Status: Chronic (12) Anemia Current Visit: Yes Status: Chronic Qualifiers: Anemia type: iron deficiency Iron deficiency anemia type: unspecified iron deficiency Qualified Code(s): D50.9 - Iron deficiency anemia, unspecified (13) Hyponatremia Current Visit: Yes Status: Acute Brief History of Present Illness: 76-year-old male presented to the ER with worsening cellulitis and ulcers to multiple areas. This included the right foot, left heel and sacral decubitus. The patient had been treated as an outpatient. Patient failed outpatient therapy. He was to have an MRI of the foot to assess for osteomyelitis. The patient was admitted for evaluation. Hospital Course: During the course of his stay CT scan of the day back showed osteomyelitis to the sacral region. The patient was treated with IV antibiotic therapy. Patient required long-term IV antibiotic therapy and wound care. The patient also had a ulcer to the left heel and right foot. This improved with antibiotic therapy. The patient was evaluated by [facility] for placement. The patient was approved. At discharge the patient will continue with vancomycin and Levaquin IV for 6 weeks. Patient continue with aggressive wound care. The patient has multiple medical issues including history of CVA, atrial fibrillation, chronic anti coagulation therapy, hypertension, diabetes and hyperlipidemia. The patient continue with his medications. Further adjustment in medication can be done at the [facility]. Vital Signs/Physical Exam: Temp Pulse Resp BP Pulse Ox 99.0 F 97 H 16 90/53 L 96 07/16/17 12:00 07/16/17 12:00 07/16/17 12:00 07/16/17 12:00 07/16/17 12:00 General: Alert, In no apparent distress, Cooperative HEENT: Atraumatic Neck: Supple Respiratory: Clear to auscultation bilaterally, Normal air movement Cardiovascular: Normal pulses, Regular rate/rhythm Gastrointestinal: Normal bowel sounds, Soft and benign, Non-distended Musculoskeletal: No erythema, No tenderness, No warmth Neurological: Other (Multiple ulcers noted. 1 to the sacral region, left heel. Ulcer to the right foot improved.), Dementia (Dementia noted) Laboratory Data at Discharge: WBC 4.2 K/uL (4.3-10.9) L D 07/16/17 04:57 Hgb 10.1 g/dL (13.6-17.9) L 07/16/17 04:57 Hct 30.5 % (39.6-49.0) L 07/16/17 04:57 Plt Count 319 K/uL (152-406) 07/16/17 04:57 Sodium 131 mEq/L (135-145) L 07/16/17 04:57 Potassium 4.5 mEq/L (3.6-5.0) 07/16/17 07:28 BUN 16 mg/dL (6-20) 07/16/17 04:57 Creatinine 0.76 mg/dL (0.61-1.24) 07/16/17 04:57 Glucose 140 mg/dL (65-120) H 07/16/17 04:57 Magnesium 1.9 mg/dL (1.8-2.5) 07/16/17 04:57 Total Bilirubin 0.3 mg/dL (0.3-1.2) 07/12/17 20:05 AST 28 IU/L (10-42) 07/12/17 20:05 ALT 19 IU/L (10-60) 07/12/17 20:05 Alkaline Phosphatase 62 IU/L (42-121) 07/12/17 20:05 Home Medications: Alprazolam 1 mg PO DAILY PRN 07/13/17 Apixaban [Eliquis] 5 mg PO BID 07/13/17 Aspirin 81 mg PO DAILY 07/13/17 Carvedilol 1 tab PO BID 07/13/17 Collagenase [Santyl Ointment*] 1 appl TOP DAILY 07/13/17 Donepezil HCl 5 mg PO DAILY 07/13/17 Famotidine [Pepcid*] 1 tab PO DAILY 07/13/17 Ipratropium/Albuterol Sulfate [Iprat-Albut 0.5-3(2.5) mg/3 ml] 1 puff IH QID Magnesium Oxide [Mag 0X*] 400 mg PO DAILY 07/13/17 Memantine HCl 5 mg PO BID 07/13/17 Multivitamin [Daily Multiple Vitamin] 1 each PO DAILY 07/13/17 Rosuvastatin Calcium 5 mg PO BEDTIME 07/13/17 Zinc Sulfate [Zinc Sulfate*] 220 mg PO DAILY 07/13/17 Patient Discharge Instructions: Patient will be transferred to long-term acute care facility to continue his care. Patient will continue with aggressive wound care and long-term IV antibiotic therapy. Patient currently on vancomycin and Levaquin. Patient with other multiple medical issues including diabetes, hypertension, hyperlipidemia, history of CVA, atrial fibrillation, and chronic anti coagulation therapy. The patient continue with his medications. Patient has underlying dementia as well. Patient continue with his meds. Diet: Continue with speech recommendation Activity: Fall precautions Time spent managing pt's care (in minutes): 55
== END 2017-07-16 17:52 | DRG 539 ==
LOC: ER 18:51 → ERHOLD 07-13 00:21 → 2ND 07-13 00:36
PROVIDERS: ADMIT Hospitalist; ATTEND Hospitalist
DX: M86.10 Other acute osteomyelitis, unspecified site (principal); L89.154 Pressure ulcer of sacral region, stage 4; L97.429 Non-pressure chronic ulcer of left heel and midfoot with unspecified severity; E87.1 Hypo-osmolality and hyponatremia; I10 Essential (primary) hypertension; E78.5 Hyperlipidemia, unspecified; E11.621 Type 2 diabetes mellitus with foot ulcer; L97.519 Non-pressure chronic ulcer of other part of right foot with unspecified severity; I48.0 Paroxysmal atrial fibrillation; Z79.01 Long term (current) use of anticoagulants; I69.991 Dysphagia following unspecified cerebrovascular disease; R13.10 Dysphagia, unspecified; D50.9 Iron deficiency anemia, unspecified; E11.622 Type 2 diabetes mellitus with other skin ulcer; M46.28 Osteomyelitis of vertebra, sacral and sacrococcygeal region; E11.69 Type 2 diabetes mellitus with other specified complication
CPT/HCPCS: 36415; 71045; 72195; 74177; 74230; 80048; 80053; 80202; 82607; 82728; 83036; 83540; 83735; 84132; 84466; 85025; 85027; 85652; 87070; 87077; 87186; 87205; 93307; 94640; 96365; 96367; 99285; J2270; J2543; J2930; J3010; J3370; J3475; J3590; J7030; Q9967

== ENCOUNTER 2017-09-20 15:36 | Inpatient (IN) | payer OTHER ==
[2017-09-20] MEDS ORDERED: ACETAMINOPHEN 500 MG TAB PO PRN (16:25)
[2017-09-20] MEDS ORDERED: ALBUTEROL 2.5 MG/3 ML NEB SOL NEB PRN (16:25)
[2017-09-20] MEDS ORDERED: IPRATROPIUM BROM 0.5MG/2.5ML NEB PRN (16:25)
[2017-09-20] MEDS ORDERED: ONDANSETRON 4 MG/2 ML VIAL IV PRN (16:25)
[2017-09-20 17:14] LABS: Absolute Lymphocytes (CBC) 2.7 K/uL (0.7-4.9); Absolute Monocytes 1.3 K/uL (0.1-1.3); Absolute Neutrophil 4.9 K/uL (1.8-8.0); Eosinophils % 1.7 % (0-4.4); Hematocrit 29.8 % (39.6-49.0); Lymphocytes % 29.8 % (15.3-44.8); MCH 27.3 pg (27.0-35.0); MCV 83.1 fL (80-100); MPV 7.6 fL (7.6-11.3); RBC Red Blood Cell Count 3.58 M/uL (4.33-5.43)
[2017-09-20] MEDS ORDERED: VANCOMYCIN 1 GM in NA CHLORIDE 0.9% 500 ML IVPB SCH (18:00)
--- NOTE | 2017-09-20 18:25 | P.HP ---
Certification for Inpatient Patient admitted to: Inpatient With expected LOS: >2 Midnights Patient will require the following post-hospital care: Other Practitioner: I am a practitioner with admitting privileges, knowledge of patient current condition, hospital course, and medical plan of care. Services: Services provided to patient in accordance with Admission requirements found in Title 42 Section 412.3 of the Code of Federal Regulations Patient History Date of Service: 09/20/17 Primary Care Provider: Dr. Frederick Reason for admission: Failed outpatient treatment for osteomyelitis History of Present Illness: 76-year-old male was a direct admit from [facility]. After speaking to Dr. Moore who evaluated the patient, patient required IV antibiotic treatment for failed outpatient treatment of right heel osteomyelitis on oral medication. Patient has chronic dementia, COPD, peripheral vascular disease. Patient has been seen at the wound Center. Inflammation, erythema noted to the right heel. No significant fever noted. No improvement with oral medication noted. Patient direct admitted for IV antibiotic therapy. Patient requires PICC line with long-term IV antibiotic therapy. Family is present. They deny any other acute problems or issues at this time. Patient also with history of atrial fibrillation on chronic anti coagulation therapy, hypertension, hyperlipidemia, COPD and anemia. His dementia is severe. Family expresses that that do not wish the patient to go to a long- term acute care facility or residential. They desire long-term IV antibiotic therapy at home. Patient is DNR. Allergies No Known Allergies Allergy (Verified 07/13/17 02:35) Home medications list reviewed: Yes Home Medications: Apixaban [Eliquis] 5 mg PO BID 07/13/17 Aspirin 81 mg PO DAILY 07/13/17 Collagenase [Santyl Ointment*] 1 appl TOP DAILY 07/13/17 Famotidine [Pepcid*] 1 tab PO DAILY 07/13/17 Ipratropium/Albuterol Sulfate [Iprat-Albut 0.5-3(2.5) mg/3 ml] 1 puff IH QID Memantine HCl 5 mg PO BID 07/13/17 Multivitamin [Daily Multiple Vitamin] 1 each PO DAILY 07/13/17 Rosuvastatin Calcium 5 mg PO BEDTIME 07/13/17 Zinc Sulfate [Zinc Sulfate*] 220 mg PO DAILY 07/13/17 Metoprolol Succinate [Toprol Xl] 12.5 mg PO BEDTIME 08/24/17 Sennosides [Senna] 8.6 mg PO DAILY 08/24/17 - Past Medical/Surgical History Has patient received pneumonia vaccine in the past: Yes Diabetic: No -: History of CVA -: Hypertension -: Dementia -: Dyslipidemia -: COPD -: Atrial fibrillation -: Chronic anti coagulation -: Chronic sacral wound -: Chronic heel wound -: Right lower extremity peripheral arterial stent Psychosocial/ Personal History: The patient lives with family. Patient is fully dependent on family. - Family History Sister -: Cancer - Social History Smoking Status: Former smoker Alcohol use: No CD- Drugs: No Caffeine use: Yes Place of Residence: Home Physical Examination - Vital Signs Temperature: 98.6 F Blood Pressure: 102/64 Pulse: 82 Respirations: 16 Pulse Ox (%): 98 - Physical Exam General: Alert, Demented (Severe dementia) HEENT: Atraumatic, Normocephalic Neck: Supple Respiratory: Clear to auscultation bilaterally, Normal air movement Cardiovascular: Normal pulses, Regular rate/rhythm Gastrointestinal: Normal bowel sounds, Soft and benign, Non-distended, No masses , No rebound, No guarding Musculoskeletal: No erythema, No tenderness, No warmth, Other (Muscle wasting to the upper and lower extremities.) Integumentary: Other (Large right heel ulcer stage IV. Small sacral ulcer stage IV. Chronic wound to right 2nd and 3rd digit) Neurological: Normal speech, Normal tone, Dementia - Studies Laboratory Data (last 24 hrs) 09/20/17 16:49: WBC 9.1, Hgb 9.8 L, Hct 29.8 L, Plt Count 380 Assessment and Plan - Problems (Diagnosis) (1) Pressure ulcer of right heel Current Visit: Yes Status: Acute Plan: Stage IV ulcer to the right heel. Patient recently had bone scan the confirm osteomyelitis. Patient will be admitted for IV antibiotic therapy. PICC line will be needed. Patient will likely need long-term IV antibiotic therapy. Infectious Disease will be consulted for recommendation. Family does not desire the patient to go to a long-term acute care facility or residential. They prefer taking him home. Qualifiers: Pressure ulcer stage: stage 4 Qualified Code(s): L89.614 - Pressure ulcer of right heel, stage 4 (2) COPD (chronic obstructive pulmonary disease) Current Visit: No Status: Chronic Plan: Continue with medication Qualifiers: COPD type: chronic bronchitis (3) Osteomyelitis Onset Date: 07/13/17 Current Visit: No Status: Acute Plan: Failed outpatient treatment of right heel ulcer. Bone scan recently done showed osteomyelitis. Will continue with above plan of care. Qualifiers: Osteomyelitis type: unspecified type Osteomyelitis location: unspecified site Qualified Code(s): M86.9 - Osteomyelitis, unspecified (4) PAD (peripheral artery disease) Current Visit: No Status: Chronic Plan: Continue with med (5) Sacral decubitus ulcer, stage IV Current Visit: No Status: Chronic Plan: Will continue with wound care (6) Anemia Current Visit: No Status: Chronic Plan: Will monitor closely. Qualifiers: Anemia type: iron deficiency Iron deficiency anemia type: unspecified iron deficiency Qualified Code(s): D50.9 - Iron deficiency anemia, unspecified (7) Atrial fibrillation Current Visit: No Status: Chronic Plan: Continue with his medication Qualifiers: Atrial fibrillation type: paroxysmal Qualified Code(s): I48.0 - Paroxysmal atrial fibrillation (8) Chronic anticoagulation Current Visit: No Status: Chronic Plan: Continue with medication (9) History of CVA (cerebrovascular accident) Current Visit: No Status: Chronic Plan: Overall stable. Patient is DNR. (10) Hyperlipidemia Current Visit: No Status: Chronic Plan: Continue with medication Qualifiers: Hyperlipidemia type: unspecified Qualified Code(s): E78.5 - Hyperlipidemia , unspecified (11) Hypertension Current Visit: No Status: Chronic Plan: Continue medication Qualifiers: Hypertension type: essential hypertension Qualified Code(s): I10 - Essential (primary) hypertension Discharge Plan: Home Plan to discharge in: Greater than 2 days - Advance Directives Does patient have a Living Will: Yes Does patient have a Durable POA for Healthcare: No - Code Status/Comfort Care Code Status Assessed: Yes Time Spent Managing Pts Care (In Minutes): 55
[2017-09-20] MEDS: PIPER/TAZO/NS 3.375gm 3.375 GM/100 ML BAG IVPB SCH (18:28)
[2017-09-20 19:29] LABS: Urine Appearance CLEAR; Urine Bilirubin NEGATIVE (NEG); Urine Blood 1+ (NEG); Urine Color YELLOW; Urine Glucose NEGATIVE (NEG); Urine Protein NEGATIVE (NEG); Urine Specific Gravity 1.015 (1.005-1.030); Urine Urobilinogen 0.2 mg/dL (0.2-1.0)
[2017-09-20 19:35] LABS: Urine Microscopic Reflex ORDER UMIC
[2017-09-20 19:50] LABS: Magnesium 1.9 mg/dL (1.8-2.5); Potassium 4.8 mEq/L (3.6-5.0)
[2017-09-20] MEDS: ARFORMOTEROL TARTRATE 15 MCG/2 ML VIAL.NEB NEB SCH (20:00)
[2017-09-20 20:52] LABS: Urine Bacteria <20 /HPF (NONE SEEN); Urine Culture Reflex Order NOT NEEDED
[2017-09-20] MEDS: ROSUVASTATIN 10 MG TAB PO SCH (21:50)
[2017-09-20] MEDS: MEMANTINE HCL 10 MG TABLET PO SCH (21:51)
[2017-09-20] MEDS: FAMOTIDINE 20 MG TAB PO SCH (21:51)
[2017-09-20] MEDS: APIXABAN 5 MG TABLET PO SCH (21:51)
[2017-09-21] MEDS: PIPER/TAZO/NS 3.375gm 3.375 GM/100 ML BAG IVPB SCH ×3 (01:16→16:58)
[2017-09-21] MEDS: METOPROLOL TAR 25 MG TAB PO SCH (05:21)
[2017-09-21 06:31] LABS: Absolute Lymphocytes (CBC) 2.3 K/uL (0.7-4.9); Absolute Monocytes 1.4 K/uL (0.1-1.3); Absolute Neutrophil 6.4 K/uL (1.8-8.0); Basophils % 0.8 % (0-1.3); Eosinophils % 1.7 % (0-4.4); Hematocrit 30.3 % (39.6-49.0); Lymphocytes % 22.5 % (15.3-44.8); MCH 27.3 pg (27.0-35.0); MCV 83.4 fL (80-100); MPV 7.8 fL (7.6-11.3); Monocytes % 13.2 % (3.3-12.3); RBC Red Blood Cell Count 3.64 M/uL (4.33-5.43)
[2017-09-21 06:36] LABS: Magnesium 1.9 mg/dL (1.8-2.5); Potassium 4.5 mEq/L (3.6-5.0)
[2017-09-21] MEDS: ARFORMOTEROL TARTRATE 15 MCG/2 ML VIAL.NEB NEB SCH ×2 (08:11→19:30)
[2017-09-21] MEDS: ASPIRIN EC 81 MG TAB PO SCH (10:22)
[2017-09-21] MEDS: MULTIVITAMIN TAB PO SCH (10:22)
[2017-09-21] MEDS: FAMOTIDINE 20 MG TAB PO SCH ×2 (10:23→20:17)
[2017-09-21] MEDS: MEMANTINE HCL 10 MG TABLET PO SCH ×2 (10:23→20:16)
[2017-09-21] MEDS: APIXABAN 5 MG TABLET PO SCH ×2 (10:26→20:16)
--- NOTE | 2017-09-21 14:25 | P.PN ---
Subjective Date of Service: 09/21/17 Primary Care Provider: Dr. Frederick Chief Complaint: Failed outpatient treatment for osteomyelitis Subjective: Demented Physical Examination - Vital Signs Temperature: 97.4 F Blood Pressure: 105/75 Pulse: 68 Respirations: 16 Pulse Ox (%): 94 - Physical Exam General: Alert, Cooperative, Demented HEENT: Atraumatic Neck: Supple Respiratory: Clear to auscultation bilaterally, Normal air movement Cardiovascular: Normal pulses, Regular rate/rhythm Gastrointestinal: Normal bowel sounds, Soft and benign, Non-distended, No masses , No rebound, No guarding Musculoskeletal: Other (Unchanged since yesterday.) Integumentary: Other (Wounds to the sacrum and right heel on change.) Neurological: Dementia - Studies Laboratory Data (last 24 hrs) 09/21/17 05:50: Sodium 133 L, Potassium 4.5, BUN 19, Creatinine 1.03, Glucose 84 , Magnesium 1.9 09/21/17 05:50: WBC 10.4 D, Hgb 9.9 L, Hct 30.3 L, Plt Count 353 09/20/17 16:49: Sodium 131 L, Potassium 4.8, BUN 25 H, Creatinine 1.05, Glucose 91, Magnesium 1.9 09/20/17 16:49: WBC 9.1, Hgb 9.8 L, Hct 29.8 L, Plt Count 380 Medications List Reviewed: Yes Assessment & Plan - Problems (Diagnosis) (1) Pressure ulcer of right heel Onset Date: 09/21/17 Current Visit: Yes Status: Acute Plan: Osteomyelitis of the right heel noted. Will continue with IV antibiotic therapy. Infectious Disease has been consulted for recommendations. Patient will likely need long-term IV antibiotic therapy for treatment. Family desires IV antibiotic therapy at home. Will discuss with psych social worker about options. Will discuss with infectious disease on antibiotic choice. Qualifiers: Pressure ulcer stage: stage 4 Qualified Code(s): L89.614 - Pressure ulcer of right heel, stage 4 (2) COPD (chronic obstructive pulmonary disease) Onset Date: 09/21/17 Current Visit: No Status: Chronic Plan: Continue with medication Qualifiers: COPD type: chronic bronchitis (3) Osteomyelitis Onset Date: 09/21/17 Current Visit: No Status: Acute Plan: Failed outpatient treatment of right heel ulcer. Bone scan recently done showed osteomyelitis. Will continue with above plan of care. Qualifiers: Osteomyelitis type: unspecified type Osteomyelitis location: unspecified site Qualified Code(s): M86.9 - Osteomyelitis, unspecified (4) PAD (peripheral artery disease) Onset Date: 09/21/17 Current Visit: No Status: Chronic Plan: Continue with med (5) Sacral decubitus ulcer, stage IV Onset Date: 09/21/17 Current Visit: No Status: Chronic Plan: Will continue with wound care and plan of care (6) Anemia Onset Date: 09/21/17 Current Visit: No Status: Chronic Plan: Will monitor closely. Qualifiers: Anemia type: iron deficiency Iron deficiency anemia type: unspecified iron deficiency Qualified Code(s): D50.9 - Iron deficiency anemia, unspecified (7) Atrial fibrillation Onset Date: 09/21/17 Current Visit: No Status: Chronic Plan: Continue with his medication Qualifiers: Atrial fibrillation type: paroxysmal Qualified Code(s): I48.0 - Paroxysmal atrial fibrillation (8) Chronic anticoagulation Onset Date: 09/21/17 Current Visit: No Status: Chronic Plan: Continue with medication (9) History of CVA (cerebrovascular accident) Onset Date: 09/21/17 Current Visit: No Status: Chronic Plan: Overall stable. Patient is DNR. (10) Hyperlipidemia Onset Date: 09/21/17 Current Visit: No Status: Chronic Plan: Continue with medication Qualifiers: Hyperlipidemia type: unspecified Qualified Code(s): E78.5 - Hyperlipidemia , unspecified (11) Hypertension Onset Date: 09/21/17 Current Visit: No Status: Chronic Plan: Continue medication Qualifiers: Hypertension type: essential hypertension Qualified Code(s): I10 - Essential (primary) hypertension Discharge Plan: Home (Home with long-term IV antibiotic therapy) Plan to discharge in: Greater than 2 days Time Spent Managing Pts Care (In Minutes): 55
[2017-09-21] MEDS: VANCOMYCIN/NS 1 gm 1 GM/250 ML BAG IV SCH (18:16)
[2017-09-21] MEDS: ROSUVASTATIN 10 MG TAB PO SCH (20:17)
[2017-09-21] MEDS: JUVEN PACKET PO SCH (20:17)
--- NOTE | 2017-09-21 21:34 | CON ---
History Of Present Illness: This is a 76-year-old male coming in for IV antibiotic as patient has fa iled oral antibiotic for osteomyelitis of right heel. The patient also has a lesion to his right big toe and second toe. The patient denies any discomfort at this time. Not a good historian. Most of the history was obtained through medical record. Past Medical History: Dementia, COPD, and peripheral vascular disease, currently being treated with Zosyn and vancomycin. Allergies: NO KNOWN DRUG ALLERGIES. Review of Systems: A 10-point review was performed. Physical Examination: General: This is a 76-year-old male, lying in bed, not in any acute cardiopulmonary distress. Vital Signs: Temperature 97, pulse 64, respirations 16, and blood pressure 132/64. HEENT: Unremarkable. Neck: Supple. Lungs: Basal crackles. Heart: S1, S2. Regular. Abdomen: Soft, nontender. Bowel sounds positive. Extremity: Muscle wasting noted. Laboratory Data: Shows WBC 10.4, hemoglobin 9.9, and platelets are 353. Chemistry shows sodium 133, potassium 4.5, chloride 99, bicarb 27, BUN 19, creatinine 1.03, glucose is 84. Micro data; blood cu ltures are pending. No x-rays or scans are available at this time. Previous bone scan done on 09/17 shows the patient has right heel osteomyelitis. Assessment And Plan: Right heel osteomyelitis; left heel decubitus ulcer, stage 3; first and second right toe wound also noted. Continue antibiotic for 6 weeks. Consider long-term acute care. We will follow the patient closely. Thank brady Ricketts for consult. TIN/EBENEZER Voice ID: [id number] Report ID: [id number]
[2017-09-22] MEDS: PIPER/TAZO/NS 3.375gm 3.375 GM/100 ML BAG IVPB SCH ×3 (01:10→17:48)
[2017-09-22 05:23] LABS: Absolute Lymphocytes (CBC) 2.3 K/uL (0.7-4.9); Absolute Monocytes 1.4 K/uL (0.1-1.3); Absolute Neutrophil 6.2 K/uL (1.8-8.0); Basophils % 0.9 % (0-1.3); Eosinophils % 2.6 % (0-4.4); Hematocrit 30.7 % (39.6-49.0); Lymphocytes % 22.5 % (15.3-44.8); MCH 27.8 pg (27.0-35.0); MCV 81.5 fL (80-100); MPV 7.7 fL (7.6-11.3); Monocytes % 13.5 % (3.3-12.3); RBC Red Blood Cell Count 3.77 M/uL (4.33-5.43)
[2017-09-22 05:45] LABS: Magnesium 1.9 mg/dL (1.8-2.5); Potassium 4.9 mEq/L (3.6-5.0)
[2017-09-22] MEDS: METOPROLOL TAR 25 MG TAB PO SCH (07:12)
[2017-09-22] MEDS: ARFORMOTEROL TARTRATE 15 MCG/2 ML VIAL.NEB NEB SCH ×2 (07:52→19:12)
[2017-09-22] MEDS: ZINC SULFATE 220 MG CAP PO SCH (08:50)
[2017-09-22] MEDS: MULTIVITAMIN TAB PO SCH (08:50)
[2017-09-22] MEDS: FAMOTIDINE 20 MG TAB PO SCH ×2 (08:50→21:04)
[2017-09-22] MEDS: ASPIRIN EC 81 MG TAB PO SCH (08:51)
[2017-09-22] MEDS: SENOSIDES 8.6 MG TAB PO SCH (08:51)
[2017-09-22] MEDS: MEMANTINE HCL 10 MG TABLET PO SCH ×2 (08:51→21:04)
[2017-09-22] MEDS: APIXABAN 5 MG TABLET PO SCH ×2 (08:52→21:04)
[2017-09-22] MEDS: JUVEN PACKET PO SCH ×2 (08:52→21:00)
[2017-09-22] MEDS: COLLAGENASE 30 GM OINTMENT TOP SCH (08:53)
[2017-09-22] MEDS ORDERED: MULTIVITAMIN PO SCH (09:00)
--- NOTE | 2017-09-22 10:23 | RAD REPORT ---
EXAM DESCRIPTION: RAD - Chest Single View - 09/22/2017 8:40 am CLINICAL HISTORY: PICC line placement. COMPARISON: None. FINDINGS: Portable chest was obtained following placement of a right upper extremity PICC line. The catheter tip is in the SVC.
--- NOTE | 2017-09-22 13:42 | P.PN ---
Subjective Date of Service: 09/22/17 Primary Care Provider: Dr. Frederick Chief Complaint: Failed outpatient treatment for osteomyelitis Subjective: Doing well, Demented Physical Examination - Vital Signs Temperature: 98.4 F Blood Pressure: 126/53 Pulse: 84 Respirations: 18 Pulse Ox (%): 98 - Physical Exam General: Alert, Cooperative, Demented HEENT: Atraumatic Neck: Supple Respiratory: Clear to auscultation bilaterally, Normal air movement Cardiovascular: Normal pulses, Regular rate/rhythm Gastrointestinal: Normal bowel sounds, Soft and benign, Non-distended, No masses , No rebound, No guarding Integumentary: Other (No changes to ulcers. Patient stable this time. Patient in position. Most comfortable on his side.) - Studies Laboratory Data (last 24 hrs) 09/22/17 04:30: Sodium 132 L, Potassium 4.9, BUN 19, Creatinine 1.35 H, Glucose 91, Magnesium 1.9 09/22/17 04:30: WBC 10.3, Hgb 10.5 L, Hct 30.7 L, Plt Count 357 Medications List Reviewed: Yes Assessment & Plan - Problems (Diagnosis) (1) Pressure ulcer of right heel Onset Date: 09/21/17 Current Visit: Yes Status: Acute Plan: Osteomyelitis of the right heel noted. Case discussed with infectious disease. Will continue with IV antibiotic therapy. Patient currently on Zosyn 3 times a day and vancomycin once daily. Patient will need 6 weeks of IV antibiotic therapy with continued wound care. Patient be transferred to skilled facility tomorrow if approved. Will discuss with family to address concerns. PICC line was placed yesterday. Qualifiers: Pressure ulcer stage: stage 4 Qualified Code(s): L89.614 - Pressure ulcer of right heel, stage 4 (2) COPD (chronic obstructive pulmonary disease) Onset Date: 09/21/17 Current Visit: No Status: Chronic Plan: Continue with medication Qualifiers: COPD type: chronic bronchitis (3) Osteomyelitis Onset Date: 09/21/17 Current Visit: No Status: Acute Plan: Failed outpatient treatment of right heel ulcer. Bone scan recently done showed osteomyelitis. Will continue with above plan of care. Qualifiers: Osteomyelitis type: unspecified type Osteomyelitis location: unspecified site Qualified Code(s): M86.9 - Osteomyelitis, unspecified (4) PAD (peripheral artery disease) Onset Date: 09/21/17 Current Visit: No Status: Chronic Plan: Continue with med (5) Sacral decubitus ulcer, stage IV Onset Date: 09/21/17 Current Visit: No Status: Chronic Plan: Will continue with wound care and plan of care (6) Anemia Onset Date: 09/21/17 Current Visit: No Status: Chronic Plan: Will monitor closely. Qualifiers: Anemia type: iron deficiency Iron deficiency anemia type: unspecified iron deficiency Qualified Code(s): D50.9 - Iron deficiency anemia, unspecified (7) Atrial fibrillation Onset Date: 09/21/17 Current Visit: No Status: Chronic Plan: Continue with his medication Qualifiers: Atrial fibrillation type: paroxysmal Qualified Code(s): I48.0 - Paroxysmal atrial fibrillation (8) Chronic anticoagulation Onset Date: 09/21/17 Current Visit: No Status: Chronic Plan: Continue with medication (9) History of CVA (cerebrovascular accident) Onset Date: 09/21/17 Current Visit: No Status: Chronic Plan: Overall stable. Patient is DNR. (10) Hyperlipidemia Onset Date: 09/21/17 Current Visit: No Status: Chronic Plan: Continue with medication Qualifiers: Hyperlipidemia type: unspecified Qualified Code(s): E78.5 - Hyperlipidemia , unspecified (11) Hypertension Onset Date: 09/21/17 Current Visit: No Status: Chronic Plan: Continue medication Qualifiers: Hypertension type: essential hypertension Qualified Code(s): I10 - Essential (primary) hypertension Discharge Plan: Other (senior living facility) Plan to discharge in: 24 Hours Time Spent Managing Pts Care (In Minutes): 55
[2017-09-22] MEDS ORDERED: SODIUM CHLORIDE 0.9% 10ML INJ IV PRN ×2 (14:00)
[2017-09-22] MEDS ORDERED: LIDOCAINE 1% MPF 5 ML VIAL IM PRN (14:00)
[2017-09-22] MEDS: VANCOMYCIN/NS 1 gm 1 GM/250 ML BAG IV SCH (17:48)
[2017-09-22] MEDS: SODIUM CHLORIDE 0.9% 10ML INJ IV SCH (21:00)
[2017-09-22] MEDS: ROSUVASTATIN 10 MG TAB PO SCH (21:03)
[2017-09-23] MEDS: PIPER/TAZO/NS 3.375gm 3.375 GM/100 ML BAG IVPB SCH ×2 (00:44→10:22)
[2017-09-23 05:35] LABS: Absolute Lymphocytes (CBC) 2.5 K/uL (0.7-4.9); Absolute Monocytes 1.5 K/uL (0.1-1.3); Absolute Neutrophil 6.1 K/uL (1.8-8.0); Basophils % 0.8 % (0-1.3); Eosinophils % 1.8 % (0-4.4); Hematocrit 30.9 % (39.6-49.0); MCH 27.1 pg (27.0-35.0); MCV 83.2 fL (80-100); MPV 7.9 fL (7.6-11.3); Monocytes % 14.4 % (3.3-12.3); RBC Red Blood Cell Count 3.72 M/uL (4.33-5.43)
[2017-09-23 06:01] LABS: Potassium 4.4 mEq/L (3.6-5.0)
[2017-09-23] MEDS: METOPROLOL TAR 25 MG TAB PO SCH (06:19)
[2017-09-23] MEDS: ARFORMOTEROL TARTRATE 15 MCG/2 ML VIAL.NEB NEB SCH (08:03)
--- NOTE | 2017-09-23 09:50 | P.DS ---
Admission Date: 09/20/17 Discharge Date: 09/23/17 Primary Care Provider: Dr. Frederick Disposition: TRANSFER TO SNF - MEDICAL Discharge Condition: GOOD Reason for Admission: Failed outpatient treatment for osteomyelitis Consultations: Infectious disease-Dr. Ernst Procedures: Bone scan: COMPARISON: Right foot radiograph 07/14/2017 FINDINGS: 25.3 millicuries technetium MDP was administered to the patient. Flow , pool and delayed imaging was performed. There is increased flow and pool to the right leg. Increased delayed uptake is seen involving the posterior aspect of the calcaneus. Findings are most compatible with osteomyelitis. IMPRESSION: Right heel osteomyelitis is suspected. - Problems (1) COPD (chronic obstructive pulmonary disease) Onset Date: 09/21/17 Current Visit: No Status: Chronic Qualifiers: COPD type: chronic bronchitis (2) Osteomyelitis Onset Date: 09/21/17 Current Visit: No Status: Acute Qualifiers: Osteomyelitis type: unspecified type Osteomyelitis location: unspecified site Qualified Code(s): M86.9 - Osteomyelitis, unspecified (3) PAD (peripheral artery disease) Onset Date: 09/21/17 Current Visit: No Status: Chronic (4) Sacral decubitus ulcer, stage IV Onset Date: 09/21/17 Current Visit: No Status: Chronic (5) Anemia Onset Date: 09/21/17 Current Visit: No Status: Chronic Qualifiers: Anemia type: iron deficiency Iron deficiency anemia type: unspecified iron deficiency Qualified Code(s): D50.9 - Iron deficiency anemia, unspecified (6) Atrial fibrillation Onset Date: 09/21/17 Current Visit: No Status: Chronic Qualifiers: Atrial fibrillation type: paroxysmal Qualified Code(s): I48.0 - Paroxysmal atrial fibrillation (7) Chronic anticoagulation Onset Date: 09/21/17 Current Visit: No Status: Chronic (8) History of CVA (cerebrovascular accident) Onset Date: 09/21/17 Current Visit: No Status: Chronic (9) Hyperlipidemia Onset Date: 09/21/17 Current Visit: No Status: Chronic Qualifiers: Hyperlipidemia type: unspecified Qualified Code(s): E78.5 - Hyperlipidemia , unspecified (10) Hypertension Onset Date: 09/21/17 Current Visit: No Status: Chronic Qualifiers: Hypertension type: essential hypertension Qualified Code(s): I10 - Essential (primary) hypertension (11) Heel ulcer due to DM Current Visit: Yes Status: Acute Qualifiers: Diabetes mellitus type: type 2 Laterality: left Brief History of Present Illness: 76-year-old male was a direct admit from [facility]. After speaking to Dr. Moore who evaluated the patient, patient required IV antibiotic treatment for failed outpatient treatment of right heel osteomyelitis on oral medication. Patient has chronic dementia, COPD, peripheral vascular disease. Patient has been seen at the wound Center. Inflammation, erythema noted to the right heel. No significant fever noted. No improvement with oral medication noted. Patient direct admitted for IV antibiotic therapy. Patient requires PICC line with long-term IV antibiotic therapy. Family is present. They deny any other acute problems or issues at this time. Patient also with history of atrial fibrillation on chronic anti coagulation therapy, hypertension, hyperlipidemia, COPD and anemia. His dementia is severe. Family expresses that that do not wish the patient to go to a long- term acute care facility or detention. They desire long-term IV antibiotic therapy at home. Patient is DNR. Hospital Course: Patient presented with right foot cellulitis. Recent bone scan showed heel osteomyelitis. He was admitted for IV antibiotic treatment. Patient evaluated by infectious disease. Infectious disease recommended long-term IV antibiotic therapy for 6 weeks due to failure of oral antibiotics. At discharge the patient will go to a skilled facility to continue his care. PICC line in place. Patient currently on vancomycin 1 g IV daily and Zosyn 3.375 g IV every 8 hr. Pharmacy will need to monitor and adjust medication. Recommendation to recheck lab-BMP, CBC twice per week. Patient will continue with wound care. Patient has left heel ulcer and a sacral ulcer. He is to continue with wound care. Patient may follow up at the wound Care Center in 1-2 weeks to monitor his progress. If his condition does not improve, will need to consider hospice in the future. This can be further addressed by his PCP as the patient has been to multiple long-term acute care facilities and skilled placement facilities for infections. Patient has atrial fibrillation. Patient will continue with rate control medication including metoprolol 12.5 mg 1 pill daily. Patient continue with anti coagulation therapy-Eliquis 5 mg 1 pill daily. Recommendations follow up with cardiology as directed. Patient has hypertension. Patient will continue with metoprolol 12.5 mg 1 pill daily. Recommendation is to maintain blood pressures less 150/80. Further adjustment can be done by his PCP. Patient has hyperlipidemia. Patient will continue with Crestor 5 mg 1 pill once daily. Patient has dementia. Patient will continue with Namenda 5 mg 1 pill twice daily. Patient has GERD. Patient will continue with Pepcid 20 mg 1 pill twice daily. Patient has history of CAD. Patient will continue with aspirin 81 mg daily. Patient has COPD. Patient will continue with Atrovent/albuterol 1 unit dose 3 times a day as needed for shortness of breath. Patient has anemia of chronic disease multi vitamin daily. Vital Signs/Physical Exam: Temp Pulse Resp BP Pulse Ox 97.7 F 73 16 130/62 95 09/23/17 08:00 09/23/17 08:00 09/23/17 08:00 09/23/17 08:00 09/23/17 08:00 General: Alert, Demented (Moderate) HEENT: Atraumatic Neck: Supple Respiratory: Clear to auscultation bilaterally, Normal air movement Cardiovascular: Normal pulses, Regular rate/rhythm Gastrointestinal: Normal bowel sounds, Soft and benign, Non-distended Musculoskeletal: Other (Ulcer to the left heel stable. Edema to the right foot improved. Sacral ulcer unchanged.) Neurological: Normal speech, Normal strength at 5/5 x4 extr, Other (Muscle wasting to the upper and lower extremities), Dementia Laboratory Data at Discharge: WBC 10.3 K/uL (4.3-10.9) 09/23/17 05:00 Hgb 10.1 g/dL (13.6-17.9) L 09/23/17 05:00 Hct 30.9 % (39.6-49.0) L 09/23/17 05:00 Plt Count 359 K/uL (152-406) 09/23/17 05:00 Sodium 134 mEq/L (135-145) L 09/23/17 05:00 Potassium 4.4 mEq/L (3.6-5.0) 09/23/17 05:00 BUN 25 mg/dL (6-20) H 09/23/17 05:00 Creatinine 1.17 mg/dL (0.61-1.24) 09/23/17 05:00 Glucose 87 mg/dL (65-120) 09/23/17 05:00 Magnesium 2.0 mg/dL (1.8-2.5) 09/23/17 05:00 Home Medications: Apixaban [Eliquis] 5 mg PO BID 07/13/17 Aspirin 81 mg PO DAILY 07/13/17 Collagenase [Santyl Ointment*] 1 appl TOP DAILY 07/13/17 Ipratropium/Albuterol Sulfate [Iprat-Albut 0.5-3(2.5) mg/3 ml] 1 puff IH QID Memantine HCl 5 mg PO BID 07/13/17 Multivitamin [Daily Multiple Vitamin] 1 each PO DAILY 07/13/17 Rosuvastatin Calcium 5 mg PO BEDTIME 07/13/17 Zinc Sulfate [Zinc Sulfate*] 220 mg PO DAILY 07/13/17 Metoprolol Succinate [Toprol Xl*] 12.5 mg PO BEDTIME 08/24/17 Sennosides [Senna] 8.6 mg PO DAILY 08/24/17 Famotidine [Pepcid*] 1 tab PO BID #60 tab 09/23/17 New Medications: Famotidine [Pepcid*] 1 tab PO BID #60 tab Patient Discharge Instructions: 1. Patient be transferred to skilled facility to continue IV antibiotic therapy. 2. Patient presented with right foot cellulitis. Recent bone scan showed heel osteomyelitis. He was admitted for IV antibiotic treatment as he failed oral antibiotic therapy as an outpatient. Patient evaluated by infectious disease. Infectious disease recommended long- term IV antibiotic therapy for 6 weeks due to failure of oral antibiotics. At discharge the patient will go to a skilled facility to continue his care. PICC line in place. Patient currently on vancomycin 1 g IV daily and Zosyn 3.375 g IV every 8 hr. Pharmacy will need to monitor and adjust medication. Recommendation to recheck lab-BMP, CBC twice per week. Patient will continue with current wound care. Patient has left heel ulcer and a sacral ulcer. He is to continue with wound care. Patient may follow up at the wound Care Center in 1-2 weeks to monitor his progress. 3. Patient has atrial fibrillation. Patient will continue with rate control medication including metoprolol 12.5 mg 1 pill daily. Patient continue with anti coagulation therapy-Eliquis 5 mg 1 pill daily. Recommendations follow up with cardiology as directed. 4. Patient has hypertension. Patient will continue with metoprolol 12.5 mg 1 pill daily. Recommendation is to maintain blood pressures less 150/80. Further adjustment can be done by his PCP. 5. Patient has hyperlipidemia. Patient will continue with Crestor 5 mg 1 pill once daily. 6. Patient has dementia. Patient will continue with Namenda 5 mg 1 pill twice daily. 7. Patient has GERD. Patient will continue with Pepcid 20 mg 1 pill twice daily. 8. Patient has history of CAD. Patient will continue with aspirin 81 mg daily. 9. Patient has anemia of chronic disease multi vitamin daily. 10. Patient has chronic constipation. Patient will continue with medication. 11. Patient has COPD. Patient will continue with albuterol/Atrovent 1 unit dose 3 times a day as needed for shortness of breath. Diet: AHA Activity: Fall precautions Time spent managing pt's care (in minutes): 55
[2017-09-23] MEDS: MULTIVITAMIN TAB PO SCH (10:27)
[2017-09-23] MEDS: MEMANTINE HCL 10 MG TABLET PO SCH (10:27)
[2017-09-23] MEDS: ASPIRIN EC 81 MG TAB PO SCH (10:27)
[2017-09-23] MEDS: APIXABAN 5 MG TABLET PO SCH (10:27)
[2017-09-23] MEDS: FAMOTIDINE 20 MG TAB PO SCH (10:27)
[2017-09-23] MEDS: SENOSIDES 8.6 MG TAB PO SCH (10:27)
[2017-09-23] MEDS: ZINC SULFATE 220 MG CAP PO SCH (10:28)
[2017-09-23] MEDS: JUVEN PACKET PO SCH (10:29)
[2017-09-23] MEDS: COLLAGENASE 30 GM OINTMENT TOP SCH (10:30)
[2017-09-23] MEDS: SODIUM CHLORIDE 0.9% 10ML INJ IV SCH (10:31)
== END 2017-09-23 13:40 | DRG 539 ==
LOC: 4TH 16:13
PROVIDERS: ADMIT Family Medicine; ATTEND Family Medicine
PROC: 02HV33Z Insertion of Infusion Device into Superior Vena Cava, Percutaneous Approach (ICD-10-PCS; principal; 2017-09-22)
DX: M86.171 Other acute osteomyelitis, right ankle and foot (principal); L89.154 Pressure ulcer of sacral region, stage 4; L89.623 Pressure ulcer of left heel, stage 3; J44.9 Chronic obstructive pulmonary disease, unspecified; I73.9 Peripheral vascular disease, unspecified; D50.9 Iron deficiency anemia, unspecified; I48.2 Chronic atrial fibrillation; Z79.01 Long term (current) use of anticoagulants; Z86.73 Personal history of transient ischemic attack (TIA), and cerebral infarction without residual deficits; E78.5 Hyperlipidemia, unspecified; I10 Essential (primary) hypertension; Z66 Do not resuscitate
CPT/HCPCS: 36415; 71045; 78315; 80048; 80202; 81003; 81015; 83735; 84443; 85025; 87040; 87205; 94640; 99215; A9503; J2543; J3370; J3590; J7605

== ENCOUNTER 2018-01-07 16:54 | Emergency (ER) | payer OTHER ==
--- OUTSIDE RECORDS SUMMARY | 2018-01-07 16:57 | XMS REPORT | Continuity of Care Document ---
:1940 Author Organization Interface Problems Problem Status Onset Classification Date Comments Source Date Reported Clostridium Active Problem 10/16/2017 Problem [facility] difficile<sup>1 8 added by Medical , 2</sup> Discern Center Expert. SEPSIS Active [facility] 8 Medical Center Medications Medication Details Route Status Patient Ordering Order Source Instructions Provider Date Famotidine 10 10 mg=1 tab, Active [place] MG Oral Tablet PO, BID, # 60 2018 Medical tab, 0 Center Refill(s), Pharmacy: [facility] [id number] memantine 5 mg 5 mg=1 tab, PO, Active [facility] oral tablet BID, # 60 tab, 2018 Medical 0 Refill(s), [place] [facility]: [facility] [id number] vancomycin 250 125 mg=2.5 mL, Active [place] mg/5 mL oral PO, ABXQ6H, # 2018 Medical solution 70 mL, 0 Center Refill(s), other apixaban 5 mg 5 mg, PO, Q12H, Active [facility] oral tablet # 60 tab, 0 2018 Medical Refill(s), [place] [facility] [id number] atorvastatin 10 10 mg=1 tab, Active [place] mg oral tablet PO, Bedtime, # 2018 Medical 30 tab, 0 Center Refill(s), [facility] [id number] Docusate Sodium 100 mg=1 cap, Active [place] 100 MG Oral PO, BID, # 60 2018 Medical Capsule cap, 0 Center [Colace] Refill(s), [facility] [id number] Vancomycin 125 mg=2.5 mL, Inactive [place] PO, ABXQ6H, 0 2018 Medical Refill(s) [place] Potassium 40 mEq, 2 tab, Inactive [facility] Chloride Route: PO, Drug 2018 Medical form: ERTAB, [place] BID, Dosing Weight 57.38, kg, Start date: 10/13/17 9:00:00 CDT, Duration: 1 day, Stop date: 10/13/17 17:00:00 CDTNotes: (Same as: K-Dur 20) "Do Not Crush" For patients unable to swallow tablet, dissolve in one half glass of water. Allow about 2 minutes for the tablets to disintegrate. Stir before giving to prepare slurry and administer. Please exclude Patients with feeding tube less than 14 Divehi (Dobhoff, J-tube etc) and pediatric and patients. With food and full glass of water atorvastatin 10 mg, 1 tab, No Longer [place] Route: PO, Drug Active 2017 Medical form: TAB, [place] Bedtime, kg, Start date: 10/11/17 21:00:00 CDT, Duration: 30 day, Stop date: 11/09/17 21:00:00 CDTNotes: (Same As: Lipitor) vancomycin 500 mg, Route: No Longer [place] IVPB, Drug Active 2017 Medical form: PDR/INJ, Center [id number], Start date: 10/11/17 17:00:00 CDT, Duration: 30 day, Stop date: 11/10/17 5:00:00 CDT, ABX Indication: Bone/Joint InfectionNotes: TIME CRITICAL MEDICATION (Same As: Vancocin) For adult patients only: Round to nearest 250 mg per Medical Staff approval Memantine 5 mg, 1 tab, No Longer [place] Route: PO, Drug Active 2017 Medical form: TAB, BID, Center kg, Start date: 10/11/17 9:00:00 CDT, Duration: 30 day, Stop date: 11/09/17 17:00:00 CDTNotes: (Same As: Namenda) Famotidine 10 10 mg, 1 tab, No Longer [place] MG Oral Tablet Route: PO, Drug Active 2017 Medical form: TAB, BID, Center kg, Start date: 10/11/17 9:00:00 CDT, Duration: 30 day, Stop date: 11/09/17 17:00:00 CDTNotes: (Same as: Pepcid AC) Aspirin 81 MG 81 mg, 1 tab, No Longer [place] Enteric Coated Route: PO, Drug Active 2017 Medical Tablet form: ECTAB, Center Daily, kg, Start date: 10/11/17 9:00:00 CDT, Duration: 30 day, Stop date: 11/09/17 9:00:00 CDTNotes: Do not crush or chew. (Same As: Ecotrin) apixaban 5 mg, 1 tab, No Longer [place] Route: PO, Drug Active 2017 Medical form: TAB, Center Q12H, kg, Start date: 10/11/17 9:00:00 CDT, Duration: 30 day, Stop date: 11/09/17 21:00:00 CDTNotes: Same as: Eliquis Docusate 100 mg, 1 cap, No Longer [facility] Route: PO, Drug Active 2017 Medical form: CAP, BID, Center kg, Start date: 10/11/17 9:00:00 CDT, Duration: 30 day, Stop date: 11/09/17 17:00:00 CDTNotes: (Same as: Colace) (Do Not Crush) Flagyl 500 mg, 1 tab, No Longer [facility] Route: PO, Drug Active 2017 Medical form: TAB, Q8H, Center kg, Start date: 10/11/17 8:00:00 CDT, Duration: 30 day, Stop date: 11/10/17 0:00:00 CDT, ABX Indication: Infectious DiarrheaNotes: (Same as: Flagyl) Take with food/ avoid alcohol Albuterol 0.833 3 mL, Route: No Longer [place] MG/ML / INHALATION, Active 2017 Medical Ipratropium Drug Form: [place] 0.167 SOLN, kg, RQID, MG/ML Inhalant Start date: Solution 10/11/17 [DuoNeb] 7:00:00 CDT, Duration: 30 day, Stop date: 11/09/17 19:00:00 CDTNotes: (Same as: Duoneb) NS 1,000 mL 1,000 mL, Rate: No Longer [place] 100 ml/hr, Active 2017 Medical Infuse over: 10 Center hr, Route: IV, Total Volume: 1,000, Start date: 10/11/17 0:56:00 CDT, Duration: 30 day, Stop date: 11/10/17 0:55:00 CDT Vancomycin 1.25 gm, Route: Inactive [place] IVPB, ONCE, kg, 2018 Medical Start date: [place] 10/11/17 0:45:00 CDT, Stop date: 10/11/17 0:45:00 CDT, ABX Indication: Bone/Joint InfectionNotes: TIME CRITICAL MEDICATION (Same As: Vancocin) Infusion rate 2001 mg: infuse over 2.5 hours For adult patients only: Round to nearest 250 mg per Medical Staff approval MEDICATION WASTE Product Size: 1000 mg Product Wasted: ___ mg Vancomycin 125 mg, 2.5 mL, No Longer [place] Route: PO, Drug Active 2018 Medical form: YAMILET [place] ABXQ6H, kg, Start date: 10/10/17 23:00:00 CDT, Stop date: 10/17/17 17:00:00 CDT, ABX Indication: Infectious DiarrheaNotes: TIME CRITICAL MEDICATION Concentration=5 0 mg/ml. Keep in refrigerator. For oral use only. Vancomycin 1gm vial are used and reconstituted with 20ml of sterile water for a concentration of 50mg/ml. Draw up in silvestre po syringes. DO NOT USE IV SYRINGES. Piperacillin 3.375 gm, IV, No Longer [place] 3000 MG / Q6H, # 40 doses Active 2018 Medical tazobactam 375 or times, 0 Center MG Injection Refill(s) [Zosyn] vancomycin 1 g 1 gm, IV, Q24H, No Longer [facility] intravenous # 10 doses or Active 2018 Medical injection times, 0 Center Refill(s) metoprolol 12.5 mg=0.5 No Longer [facility] tartrate 25 mg tab, PO, BID, # Active 2018 Medical oral tablet 180 tab, 0 Center Refill(s) memantine 5 mg 5 mg=1 tab, PO, No Longer [facility] oral tablet BID, # 60 tab, Active 2018 Medical 0 Refill(s) Center Metronidazole 500 mg=1 tab, No Longer [place] 500 MG Oral PO, Q8H, # 30 Active 2018 Medical Tablet [Flagyl] tab, 0 Center Refill(s) Famotidine 10 10 mg=1 tab, No Longer [facility] MG Oral Tablet PO, BID, # 180 Active 2017 Medical tab, 0 Center Refill(s) Albuterol 0.833 3 ml, No Longer [facility] MG/ML / INHALATION, Active 2018 [facility] Ipratropium QID, # 30 ea, 0 Center [place] 0.167 Refill(s) MG/ML Inhalant Solution [DuoNeb] Docusate Sodium 100 mg=1 cap, No Longer [place] 100 MG Oral PO, BID, # 60 Active 2017 [facility] Capsule cap, 0 Center [Colace] Refill(s) atorvastatin 10 10 mg=1 tab, No Longer [facility] mg oral tablet PO, Bedtime, # Active 2018 Medical 30 tab, 0 Center Refill(s) Aspirin 81 MG 81 mg=1 tab, Active [facility] Enteric Coated PO, Daily, # 90 2018 Medical Tablet tab, 3 Center Refill(s) apixaban 5 mg 5 mg, PO, Q12H, No Longer [facility] oral tablet 0 Refill(s) Active 2018 [facility] Ondansetron 4 mg, 2 mL, No Longer [facility] Route: IVP, Active 2017 Medical Drug form: INJ, Center Q6H, kg, PRN Nausea & Vomiting, Start date: 10/10/17 21:02:00 CDT, Duration: 30 day, Stop date: 11/09/17 21:01:00 CDTNotes: (Same as: Zofran) MEDICATION WASTE Product Size: 4 mg Product Wasted: ___ mg Acetaminophen 650 mg, 2 tab, No Longer [facility] Route: PO, Drug Active 2017 Medical form: TAB, Q4H, Center kg, PRN Pain 1-3/Temp > 100.4 F, Start date: 10/10/17 21:02:00 CDT, Duration: 30 day, Stop date: 11/09/17 21:01:00 CDTNotes: Do not exceed 4 gm/day. (Same as: Tylenol) Allergies, Adverse Reactions, Alerts Substance Category Reaction Severity Reaction Status Date Comments Source type Reported NKDA Assertion Drug Active [facility] Immunizations Immunization Date Given Site Status Last Comments Source Updated pneumococcal 10/13/2017 Left completed [facility] 13-valent vaccine [facility] Results Order Name Results Value Reference Date Interpretation Comments Source Range ELECTROLYTES Sodium Lvl 139 meq/L 135 - 145 10/[address] ELECTROLYTES Glucose Lvl 81 mg/dL 70 - 99 10/[address] ELECTROLYTES BUN 13 mg/dL 7 - 22 10/[address] ELECTROLYTES Creatinine 0.71 0.50 - 10/13 [facility] Lvl mg/dL 1.40 [facility] ELECTROLYTES eGFR 89 10/13 Result Comment: The eGFR is calculated using the CKD-EPI formula. In most young, healthy individuals the eGFR will be > 90 mL/min/1.73m2. The eGFR declines with age. An eGFR of 60-89 may be normal in [facility] mL/min/1. some populations, particularly the elderly, for whom the CKD-EPI formula has not been extensively validated. Use of the eGFR is not recommended in the following populations: [address] Individuals with unstable creatinine concentrations, including patients and those with serious co-morbid conditions. Patients with extremes in muscle mass or diet. The data above are obtained from the National Kidney Disease Education Program (NKDEP) which additionally recommends that when the eGFR is used in patients with extremes of body mass index for purposes of drug dosing, the eGFR should be multiplied by the estimated BMI. ELECTROLYTES Calcium Lvl 8.4 mg/dL 8.5 - 10.5 10/[address] ELECTROLYTES Potassium Lvl 3.2 meq/L 3.5 - 5.1 10/[address] ELECTROLYTES Chloride Lvl 105 meq/L 95 - 109 10/[address] ELECTROLYTES CO2 23 meq/L 24 - 32 10/[address] ELECTROLYTES AGAP 14.2 10.0 - 10/13 [facility] meq/L 20.[address] [place] [address] HEMATOLOGY Basophils # 0.1 K/CMM 0.0 - 0.2 10/[address] HEMATOLOGY Eosinophils 2.9 % 0.0 - 4.0 10/[address] HEMATOLOGY Segs-Bands # 6.3 K/CMM 1.5 - 8.1 10/[address] HEMATOLOGY Monocytes # 1.3 K/CMM 0.0 - 0.8 10/13 [facility] HEMATOLOGY Lymphocytes # 2.4 K/CMM 1.0 - 5.5 10/13 [facility] HEMATOLOGY Eosinophils # 0.3 K/CMM 0.0 - 0.5 10/[address] HEMATOLOGY Lymphocytes 23.4 % 20.0 - 10/13 [facility] [address] [facility] HEMATOLOGY Segs 60.4 % 45.0 - 10/13 [facility] [address] [facility] HEMATOLOGY Monocytes 12.8 % 2.0 - 12.0 10/13 [facility] HEMATOLOGY Basophils 0.5 % 0.0 - 1.0 10/[address] HEMATOLOGY RBC 3.31 4.70 - 10/13 [facility] M/[facility] 6.10 [facility] HEMATOLOGY Hct 27.8 % 42.0 - 10/13 [facility] [address] [facility] HEMATOLOGY Hgb 9.2 g/dL 14.0 - 10/13 [facility] [address] [facility] HEMATOLOGY MCH 27.8 pg 27.0 - 10/13 [facility] [address] [facility] HEMATOLOGY MCV 84.2 fL 80.0 - 10/13 [facility] [address] [facility] HEMATOLOGY MCHC 32.9 g/dL 32.0 - 10/13 [facility] [address] [facility] HEMATOLOGY Platelet 300 K/CMM 133 - 450 10/[address] HEMATOLOGY RDW 18.3 % 11.5 - 10/13 [facility] [address] [facility] HEMATOLOGY MPV 7.8 fL 7.4 - 10.4 10/13 [facility] [address] [place] [address] HEMATOLOGY WBC 10.4 3.7 - 10.4 10/13 [facility] K/CMM [facility] CHEM PANEL eGFR 83 10/12 Result Comment: The eGFR is calculated using the CKD-EPI formula. In most young, healthy individuals the eGFR will be >90 mL/ min/1.73m2. The eGFR declines with age. An eGFR of 60-89 may be normal in [facility] mL/min/1 some populations, particularly the elderly, for whom the CKD-EPI formula has not been extensively validated. Use of the eGFR is not recommended in the following populations: [address] Individuals with unstable creatinine concentrations, including patients and those with serious co-morbid conditions. Patients with extremes in muscle mass or diet. The data above are obtained from the National Kidney Disease Education Program (NKDEP) which additionally recommends that when the eGFR is used in patients with extremes of body mass index for purposes of drug dosing, the eGFR should be multiplied by the estimated BMI. CHEM PANEL Glucose Lvl 81 mg/dL 70 - 99 10/[address] CHEM PANEL Bili Total 0.5 mg/dL 0.2 - 1.3 10/[address] CHEM PANEL Alk Phos 51 unit/L 39 - 136 10/[address] CHEM PANEL AST 18 unit/L 0 - 37 10/[address] CHEM PANEL ALT 14 unit/L 0 - 65 10/[address] CHEM PANEL Albumin Lvl 2.0 g/dL 3.5 - 5.0 10/[address] CHEM PANEL Total Protein 6.0 g/dL 6.4 - 8.4 10/[address] CHEM PANEL Calcium Lvl 8.2 mg/dL 8.5 - 10.5 10/[address] CHEM PANEL CO2 23 meq/L 24 - 32 10/[address] CHEM PANEL Chloride Lvl 107 meq/L 95 - 109 10/[address] CHEM PANEL Potassium Lvl 3.4 meq/L 3.5 - 5.1 10/[address] CHEM PANEL Sodium Lvl 140 meq/L 135 - 145 10/[address] CHEM PANEL Creatinine 0.84 0.50 - 10/12 [facility] Lvl mg/dL 1.40 [facility] CHEM PANEL BUN 14 mg/dL 7 - 22 10/[address] CHEM PANEL A/G Ratio 0.5 0.7 - 1.6 10/[address] CHEM PANEL Globulin 4.0 g/dL 2.7 - 4.2 10/[address] CHEM PANEL B/C Ratio 17 6 - 25 10/[address] CHEM PANEL AGAP 13.4 10.0 - 10/12 [facility] meq/L 20.[address] [place] [address] CHEM PANEL Magnesium Lvl 1.9 mg/dL 1.8 - 2.4 10/12 [facility] [place] [address] CHEM PANEL Ammonia 52.0 <=45.0 10/12 [facility] umol/L uMol/L /2017 [facility] HEMATOLOGY Hct 26.2 % 42.0 - 10/12 [facility] [address] [facility] HEMATOLOGY Hgb 8.6 g/dL 14.0 - 10/12 [facility] [address] [facility] HEMATOLOGY MCHC 33.0 g/dL 32.0 - 10/12 [facility] [address] [facility] HEMATOLOGY MCH 27.4 pg 27.0 - 10/12 [facility] [address] [facility] HEMATOLOGY MCV 83.3 fL 80.0 - 10/12 [facility] [address] [facility] HEMATOLOGY RDW 18.3 % 11.5 - 10/12 [facility] [address] [facility] HEMATOLOGY MPV 7.7 fL 7.4 - 10.4 10/[address] HEMATOLOGY Platelet 294 K/CMM 133 - 450 10/[address] HEMATOLOGY RBC 3.15 4.70 - 10/12 [facility] M/CMM 6.10 [facility] HEMATOLOGY WBC 10.9 3.7 - 10.4 10/12 [facility] K/CMM /2017 [facility] HEMATOLOGY Eosinophils # 0.3 K/CMM 0.0 - 0.5 10/[address] HEMATOLOGY Monocytes # 1.3 K/CMM 0.0 - 0.8 10/[address] HEMATOLOGY Lymphocytes # 2.0 K/CMM 1.0 - 5.5 10/[address] HEMATOLOGY Basophils # 0.1 K/CMM 0.0 - 0.2 10/[address] HEMATOLOGY Segs 66.2 % 45.0 - 10/12 [facility] [address] [facility] HEMATOLOGY Lymphocytes 18.0 % 20.0 - 10/12 [facility] [address] [facility] HEMATOLOGY Eosinophils 2.8 % 0.0 - 4.0 10/[address] HEMATOLOGY Monocytes 12.4 % 2.0 - 12.0 10/[address] HEMATOLOGY Segs-Bands # 7.2 K/CMM 1.5 - 8.1 10/[address] HEMATOLOGY Basophils 0.6 % 0.0 - 1.0 10/12 [facility] CHEM PANEL Lactic Acid 0.8 0.5 - 2.2 10/11 [facility] Lvl mMol/L [facility] CHEM PANEL Procalcitonin 0.73 0.00 - 10/11 [facility] Lvl ng/mL 0.10 [facility] HEMATOLOGY Sed Rate 45 mm/h 0 - 15 10/[address] IMMUNOLOGY C-REACTIVE 132.0 <=2.9 mg/L 10/11 [facility] PROTEIN mg/L [facility] MOLECULAR C difficile Positive 1 Negative 10/11 Result [facility] DIAGNOSTIC DNA Comment: Medical *ABN* "Significant Center Findings (10/11/17 12:26 AM) called to Augie Bautista at 10/11/2017 08:17 by DO. Read Back OK." CHEM PANEL Phosphorus 3.3 mg/dL 2.5 - 4.5 10/11 [facility]2017 [facility] CHEM PANEL Magnesium Lvl 1.9 mg/dL 1.8 - 2.4 10/11 [facility]2017 [facility] CHEM PANEL eGFR 73 10/11 Result Comment: The eGFR is calculated using the CKD-EPI formula. In most young, healthy individuals the eGFR will be >90 mL/ min/1.73m2. The eGFR declines with age. An eGFR of 60-89 may be normal in [facility] mL/min/1. some populations, particularly the elderly, for whom the CKD-EPI formula has not been extensively validated. Use of the eGFR is not recommended in the following populations: [place] [address] Center Individuals with unstable creatinine concentrations, including patients and those with serious co-morbid conditions. Patients with extremes in muscle mass or diet. The data above are obtained from the National Kidney Disease Education Program (NKDEP) which additionally recommends that when the eGFR is used in patients with extremes of body mass index for purposes of drug dosing, the eGFR should be multiplied by the estimated BMI. CHEM PANEL AST 18 unit/L 0 - 37 10/[address] [facility] CHEM PANEL Alk Phos 56 unit/L 39 - 136 10/[address] CHEM PANEL Bili Total 0.5 mg/dL 0.2 - 1.3 10/[address] CHEM PANEL Total Protein 6.4 g/dL 6.4 - 8.4 10/[address] CHEM PANEL ALT 16 unit/L 0 - 65 10/[address] CHEM PANEL Chloride Lvl 105 meq/L 95 - 109 10/[address] CHEM PANEL Potassium Lvl 3.8 meq/L 3.5 - 5.1 10/[address] CHEM PANEL Albumin Lvl 2.3 g/dL 3.5 - 5.0 10/[address] CHEM PANEL Calcium Lvl 8.5 mg/dL 8.5 - 10.5 10/[address] CHEM PANEL CO2 25 meq/L 24 - 32 10/[address] CHEM PANEL Sodium Lvl 138 meq/L 135 - 145 10/[address] CHEM PANEL Creatinine 0.98 0.50 - 10/11 [facility] Lvl mg/dL 1.[address] [place] [address] CHEM PANEL BUN 20 mg/dL 7 - 22 10/[address] CHEM PANEL Glucose Lvl 103 mg/dL 70 - 99 10/[address] CHEM PANEL A/G Ratio 0.6 0.7 - 1.6 10/[address] CHEM PANEL AGAP 11.8 10.0 - 10/11 [facility] meq/L 20.0 [facility] CHEM PANEL B/C Ratio 20 6 - 25 10/[address] CHEM PANEL Globulin 4.1 g/dL 2.7 - 4.2 10/[address] HEMATOLOGY Basophils 0.5 % 0.0 - 1.0 10/[address] HEMATOLOGY Segs-Bands # 17.5 1.5 - 8.1 10/11 [facility] K/CM[address] HEMATOLOGY Eosinophils 0.5 % 0.0 - 4.0 10/[address] HEMATOLOGY Lymphocytes 8.5 % 20.0 - 10/[address] [place] [address] [facility] HEMATOLOGY Basophils # 0.1 K/CMM 0.0 - 0.2 10/[address] HEMATOLOGY Lymphocytes # 1.8 K/CMM 1.0 - 5.5 10/[address] HEMATOLOGY Monocytes 8.3 % 2.0 - 12.0 10/[address] HEMATOLOGY Monocytes # 1.8 K/CMM 0.0 - 0.8 10/11 [facility] HEMATOLOGY Eosinophils # 0.1 K/CMM 0.0 - 0.5 10/11 [facility] HEMATOLOGY Segs 82.2 % 45.0 - 10/11 [facility] [address] [facility] HEMATOLOGY Platelet 318 K/CMM 133 - 450 10/11 [facility] HEMATOLOGY MPV 7.3 fL 7.4 - 10.4 10/11 [facility] HEMATOLOGY WBC 21.3 3.7 - 10.4 10/11 [facility] K/CMM [facility] HEMATOLOGY RDW 18.6 % 11.5 - 10/11 [facility] [address] [facility] HEMATOLOGY Hct 27.6 % 42.0 - 10/11 [facility] [address] [facility] HEMATOLOGY Hgb 9.0 g/dL 14.0 - 10/11 [facility] [address] [facility] HEMATOLOGY RBC 3.31 4.70 - 10/11 [facility] M/CMM 6.10 [facility] HEMATOLOGY MCV 83.3 fL 80.0 - 10/11 [facility] [address] [facility] HEMATOLOGY MCH 27.2 pg 27.0 - 10/11 [facility] [address] [facility] HEMATOLOGY MCHC 32.7 g/dL 32.0 - 10/11 [facility] [address] [facility] Vital Signs Vital Sign Value Date Comments Source Systolic (mm Hg) 163 10/13/2017 [facility] Diastolic (mm Hg) 73 10/13/2017 [facility] Temperature Oral (F) 97.4 F 10/13/2017 [facility] Heart Rate 74 10/13/2017 [facility] Systolic (mm Hg) 172 10/13/2017 [facility] Diastolic (mm Hg) 71 10/13/2017 [facility] Respitory Rate 20 10/13/2017 [facility] Respitory Rate 18 10/13/2017 [facility] Temperature Oral (F) 97.2 F 10/13/2017 [facility] Heart Rate 62 10/13/2017 [facility] Systolic (mm Hg) 163 10/13/2017 [facility] Diastolic (mm Hg) 80 10/13/2017 [facility] Heart Rate 83 10/13/2017 [facility] Temperature Oral (F) 97.4 F 10/13/2017 [facility] Respitory Rate 18 10/13/2017 [facility] Height 175.2 cm 10/11/2017 [facility] Weight 57.38 10/11/2017 [facility] Height 175.2 cm 10/11/2017 [facility] Weight 57.38 10/11/2017 [facility] BMI Calculated 18.69 10/11/2017 [facility] Encounters Location Location Encounter Encounter Reason Attending ADM DC Status Source Details Type Number For Provider Date Date Visit [facility] [id number] Non 10/10 10/13 [facility] Physician /2017 [facility] Procedures Procedure Code Date Perfomer Comments Source
[2018-01-07] MEDS ORDERED: CLINDAMYCIN 600MG/D5W 600 MG/50 ML BAG IV ONE (17:54)
[2018-01-07 18:02] LABS: Hematocrit 34.1 % (39.6-49.0); MCH 29.1 pg (27.0-35.0); MCV 87.2 fL (80-100); MPV 8.7 fL (7.6-11.3); RBC Red Blood Cell Count 3.91 M/uL (4.33-5.43)
[2018-01-07 18:13] LABS: Albumin 3.2 g/dL (3.4-5.0); Bilirubin Total 0.3 mg/dL (0.2-1.0); Potassium 4.9 mmol/L (3.5-5.1); Protein, Total 7.4 g/dL (6.4-8.2)
[2018-01-07] MEDS ORDERED: NA CHLORIDE 0.9% 1,000 ML ONE (18:24)
--- NOTE | 2018-01-07 18:45 | ER ---
Nurse's Notes [facility] Name: Amari Espinal Sr Age: 77 yrs Sex: Male : 1940 Arrival Date: 01/07/2018 Time: 16:58 Bed 20 Private MD: Unknown, Unknown Diagnosis: Cellulitis and acute lymphangitis of other parts of limb Presentation: 01/07 17:00 Presenting complaint: Patient states: redness to right foot that began today. Pt's aa5 daughter reports wound to right second toe that began April 2017. 17:00 Transition of care: patient was not received from another setting of care. Onset of aa5 symptoms was January 07, 2018. Risk Assessment: Do you want to hurt yourself or someone else? Patient reports no desire to harm self or others. Initial Sepsis Screen: Does the patient meet any 2 criteria? No. Patient's initial sepsis screen is negative. Does the patient have a suspected source of infection? No. Patient's initial sepsis screen is negative. Care prior to arrival: None. 17:00 Method Of Arrival: Wheelchair aa5 17:00 Acuity: TEAGAN 3 aa5 Triage Assessment: 17:16 General: Appears in no apparent distress. uncomfortable, Behavior is calm, cooperative, jl7 appropriate for age. Pain: Denies pain. EENT: No signs and/or symptoms were reported regarding the EENT system. Neuro: Level of Consciousness is awake, alert, obeys commands. Cardiovascular: Patient's skin is warm and dry. Respiratory: Airway is patent Respiratory effort is even, unlabored, Respiratory pattern is regular, symmetrical. GI: No signs and/or symptoms were reported involving the gastrointestinal system. : No signs and/or symptoms were reported regarding the genitourinary system. Derm: Skin is pink, warm \T\ dry. Wound noted right second toe Other: redness and heat noted to dorsum of right foot. Musculoskeletal: No signs and/or symptoms reported regarding the musculoskeletal system. Historical: - Allergies: 17:16 No Known Allergies; jl7 - Home Meds: 17:16 famotidine 20 mg oral tab 1 tab once daily [Active]; Eliquis 5 mg oral tab 1 tab jl7 [Active]; atorvastatin 10 mg oral tab 1 tab once daily [Active]; methocarbamol 500 mg Oral tab [Active]; aspirin 81 mg Oral chew [Active]; Cefuroxime Oral 500 mg [Active]; - PMHx: 17:16 Atrial Fib; COPD; Dementia; hemiplagia affecting left side; Hyperlipidemia; PVD; TIA; jl7 - Immunization history:: Adult Immunizations up to date. - Social history:: Smoking status: Patient/guardian denies using tobacco, but has a distant history of tobacco abuse, Patient/guardian denies using alcohol, street drugs, The patient lives with family. - Ebola Screening: : No symptoms or risks identified at this time. - Family history:: not pertinent. Screenin:20 Abuse screen: Denies threats or abuse. Denies injuries from another. Nutritional jl7 screening: No deficits noted. Tuberculosis screening: No symptoms or risk factors identified. 18:41 Fall Risk Fall in past 12 months (25 points). Secondary diagnosis (15 points) impaired jl7 mobility, IV access (20 points). Ambulatory Aid- None/Bed Rest/Nurse Assist (0 pts). Gait- Normal/Bed Rest/Wheelchair (0 pts) Mental Status- Overestimates/Forgets Limitations (15 pts.). Total Moon Fall Scale indicates High Risk Score (45 or more points). Fall prevention measures have been instituted. Side Rails Up X 2 Placed Close to Nursing Station Frequent Obs/Assessments Occuring Family Present and informed to notify staff if the need to leave the bedside As available patient and family educated on Fall Prevention Program and Strategies. Assessment: 17:20 General: See triage assessment. jl7 18:30 Reassessment: Dr. Corona at bedside discussing plan of care. [facility] 19:10 Reassessment: Patient appears in no apparent distress at this time. No changes from jd3 previously documented assessment. Patient and/or family updated on plan of care and expected duration. Pain level reassessed. 20:29 Reassessment: Patient appears in no apparent distress at this time. No changes from jd3 previously documented assessment. Patient and/or family updated on plan of care and expected duration. Pain level reassessed. 21:12 Reassessment: Patient appears in no apparent distress at this time. No changes from jd3 previously documented assessment. Patient and/or family updated on plan of care and expected duration. Pain level reassessed. Patient states feeling better. Vital Signs: 17:16 BP 144 / 59; Pulse 81; Resp 14 S; Temp 98.8(O); Pulse Ox 98% on R/A; Weight 58.97 kg jl7 (R); Height 5 ft. 6 in. (167.64 cm) (R); Pain 0/10; 18:41 BP 132 / 90; Pulse 85; Resp 18; Pulse Ox 98% ; jl7 19:10 BP 143 / 89; Pulse 90; Resp 18; Pulse Ox 100% ; ea 20:38 BP 158 / 89; Pulse 81; Resp 16 S; Pulse Ox 93% on R/A; jd3 21:12 Pulse 85; Resp 18 S; Pulse Ox 93% on R/A; jd3 17:16 Body Mass Index 20.98 (58.97 kg, 167.64 cm) jl7 ED Course: 16:58 Patient arrived in ED. mr 16:58 Unknown, Unknown is Private Physician. mr 17:00 Arm band placed on Patient placed in an exam room, on a stretcher. aa5 17:01 Nani Asher RN is Primary Nurse. jl7 17:03 Efrain Marks MD is Attending Physician. ma2 17:07 Triage completed. aa5 17:20 Patient has correct armband on for positive identification. Bed in low position. Call jl7 light in reach. Side rails up X2. Pulse ox on. NIBP on. Warm blanket given. 17:54 Initial lab(s) drawn, by nj, sent to lab. Inserted saline lock: 20 gauge in right upper jl7 arm, using aseptic technique. Blood collected. 18:36 Efrain Chapa MD is Hospitalizing Provider. ma2 18:57 Primary Nurse role handed off by Nani Asher RN [facility] 19:02 Mike Hameed RN is Primary Nurse. jd3 20:19 Lactate: re-check Sent. jd3 21:11 No provider procedures requiring assistance completed. IV discontinued, intact, jd3 bleeding controlled, No redness/swelling at site. Pressure dressing applied. Administered Medications: 17:55 Drug: Clindamycin 600 mg Route: IVPB; Infused Over: 30 mins; Site: right upper arm; jl7 18:25 Follow up: Response: No adverse reaction; IV Status: Completed infusion jl7 18:24 Drug: NS 0.9% 1000 ml Route: IV; Rate: 1 bolus; Site: right upper arm; jl7 20:25 Follow up: Response: No adverse reaction; IV Status: Completed infusion; IV Intake: jd3 1000ml Intake: 20:25 IV: 1000ml; Total: 1000ml. jd3 Outcome: 18:44 Decision to Hospitalize by Provider. ma2 21:03 Discharge ordered by . ma2 21:11 Discharged to home via wheelchair, with family. jd3 21:11 Condition: stable 21:11 Discharge instructions given to patient, family, Instructed on discharge instructions, follow up and referral plans. medication usage, Demonstrated understanding of instructions, follow-up care, medications, Prescriptions given X 2. 21:13 Patient left the ED. jd3 Signatures: Jessenia Mullen Audri, RN RN aa5 Nani Asher RN RN jl7 Lillie Carrillo RN Mike Levy ea, RN RN jd3 Efrain Marks MD MD ma2
--- NOTE | 2018-01-07 18:45 | EDPHYS ---
Physician Documentation [facility] Name: Amari Espinal Sr Age: 77 yrs Sex: Male : 1940 Arrival Date: 01/07/2018 Time: 16:58 Bed 20 Private MD: Unknown, Unknown ED Physician Efrain Marks HPI: 01/07 17:28 This 77 yrs old Male presents to ER via Wheelchair with complaints of Foot ma2 infection. 17:28 The patient presents with a rash, swelling. The complaints affect the right foot. ma2 Onset: The symptoms/episode began/occurred gradually, 5 day(s) ago. Associated signs and symptoms: Pertinent positives: swelling, Pertinent negatives: calf tenderness, fever, numbness, swelling, vomiting, warmth. Severity of symptoms: At their worst the symptoms were moderate, in the emergency department the symptoms are unchanged. The patient has experienced a previous episode. Historical: - Allergies: 17:16 No Known Allergies; jl7 - Home Meds: 17:16 famotidine 20 mg oral tab 1 tab once daily [Active]; Eliquis 5 mg oral tab 1 tab jl7 [Active]; atorvastatin 10 mg oral tab 1 tab once daily [Active]; methocarbamol 500 mg Oral tab [Active]; aspirin 81 mg Oral chew [Active]; Cefuroxime Oral 500 mg [Active]; - PMHx: 17:16 Atrial Fib; COPD; Dementia; hemiplagia affecting left side; Hyperlipidemia; PVD; TIA; jl7 - Immunization history:: Adult Immunizations up to date. - Social history:: Smoking status: Patient/guardian denies using tobacco, but has a distant history of tobacco abuse, Patient/guardian denies using alcohol, street drugs, The patient lives with family. - Ebola Screening: : No symptoms or risks identified at this time. - Family history:: not pertinent. ROS: 17:28 MS/extremity: Positive for erythema, pain, Negative for injury or acute deformity, ma2 abrasion, paresthesias, puncture, rash, tingling. 17:28 Constitutional: Negative for fever, chills, and weight loss, Neck: Negative for injury, pain, and swelling. 17:28 All other systems are negative. Exam: 17:28 Constitutional: This is a well developed, well nourished patient who is awake, alert, ma2 and in no acute distress. Head/Face: Normocephalic, atraumatic. Chest/axilla: Normal chest wall appearance and motion. Nontender with no deformity. No lesions are appreciated. Cardiovascular: Regular rate and rhythm with a normal S1 and S2. No gallops, murmurs, or rubs. Normal PMI, no JVD. No pulse deficits. Respiratory: Lungs have equal breath sounds bilaterally, clear to auscultation and percussion. No rales, rhonchi or wheezes noted. No increased work of breathing, no retractions or nasal flaring. Neuro: Awake and alert, GCS 15, oriented to person, place, time, and situation. Cranial nerves II-XII grossly intact. Motor strength 5/5 in all extremities. Sensory grossly intact. Cerebellar exam normal. Normal gait. 17:28 Musculoskeletal/extremity: Extremities: right foot erythema 4x4 cm mild edema, no fluctuance , Circulation is intact in all extremities. Sensation intact. Vital Signs: 17:16 BP 144 / 59; Pulse 81; Resp 14 S; Temp 98.8(O); Pulse Ox 98% on R/A; Weight 58.97 kg jl7 (R); Height 5 ft. 6 in. (167.64 cm) (R); Pain 0/10; 18:41 BP 132 / 90; Pulse 85; Resp 18; Pulse Ox 98% ; jl7 19:10 BP 143 / 89; Pulse 90; Resp 18; Pulse Ox 100% ; ea 20:38 BP 158 / 89; Pulse 81; Resp 16 S; Pulse Ox 93% on R/A; jd3 21:12 Pulse 85; Resp 18 S; Pulse Ox 93% on R/A; jd3 17:16 Body Mass Index 20.98 (58.97 kg, 167.64 cm) jl7 MDM: 17:03 Patient medically screened. ma2 17:28 Differential diagnosis: sprain, arthritis, gout, cellulitis. ma2 18:08 Data reviewed: vital signs, nurses notes, lab test result(s). Counseling: I had a ma2 detailed discussion with the patient and/or guardian regarding: the historical points, exam findings, and any diagnostic results supporting the discharge/admit diagnosis, the presence of at least one elevated blood pressure reading (>120/80) during this emergency department visit, the need for outpatient follow up. Response to treatment: the patient's symptoms have markedly improved after treatment. 18:08 ED course: started on cefuroxime at home, i.e 2nd generation cephalosporin, with some ma2 improvement, send here from home nurse for a check up. will add clindamycin, Iv dose given in ED, VS and WBC wnl, no SIRS, he is not diabetic, immunocompetent, he will have a close pcp f/u in 2 days . 18:15 ED course: lactate is elevated, so will admit to observation . [facility] 21:02 ED course: patient changed his mind and wants to go home, lactate is trending down to ma2 1.6, feels better will see pcp in 01/07 17:26 Order name: CBC w/o diff; Complete Time: 18:08 [facility] 01/07 17:26 Order name: CMP; Complete Time: 18:18 [facility] 01/07 17:26 Order name: Lactate; Complete Time: 18:18 [facility] 01/07 18:42 Order name: Blood Culture Adult (2) [facility] 01/07 18:43 Order name: Blood Culture [facility] 01/07 19:46 Order name: Lactate: re-check [facility] 01/07 18:49 Order name: CONS Pharmacy Consult [facility] 01/07 18:49 Order name: Heart Healthy [facility] 01/07 20:43 Order name: Lactate [facility] Administered Medications: 17:55 Drug: Clindamycin 600 mg Route: IVPB; Infused Over: 30 mins; Site: right upper arm; [facility] 18:25 Follow up: Response: No adverse reaction; IV Status: Completed infusion [facility] 18:24 Drug: NS 0.9% 1000 ml Route: IV; Rate: 1 bolus; Site: right upper arm; [facility] 20:25 Follow up: Response: No adverse reaction; IV Status: Completed infusion; IV Intake: jd3 1000ml Disposition: 01/07/18 21:03 Discharged to Home. Impression: Cellulitis and acute lymphangitis of other parts of limb. - Condition is Stable. - Discharge Instructions: Cellulitis, Adult. - Prescriptions for Clindamycin HCl 300 mg Oral Capsule - take 1 capsule by ORAL route every 6 hours for 10 days; 40 capsule. Bactrim 400- 80 mg Oral Tablet - take 2 tablets by ORAL route every 12 hours; 20 tablet. - Medication Reconciliation Form, Thank You Letter, Antibiotic Education, Prescription Opioid Use form. - Follow up: Private Physician; When: Tomorrow; Reason: Continuance of care. - Problem is new. - Symptoms have improved. Signatures: Dispatcher [employer] EDNani Aguirre RN RN jl7 Mike Hameed RN RN jd3 Efrain Marks MD MD ma2 Corrections: (The following items were deleted from the chart) 21:01 18:44 Hospitalization Ordered by Efrain Chapa MD for Observation. Preliminary rg2 diagnosis is Cellulitis and acute lymphangitis of other parts of limb. Bed requested for Telemetry/MedSurg (observation). Status is Observation. Condition is Stable. Problem is new. Symptoms have improved. UTI on Admission? No. ma2 21:13 21:03 01/07/2018 21:03 Discharged to Home. Impression: Cellulitis and acute jd3 lymphangitis of other parts of limb. Condition is Stable. Forms are Medication Reconciliation Form, Thank You Letter, Antibiotic Education, Prescription Opioid Use. Follow up: Private Physician; When: Tomorrow; Reason: Continuance of care. Problem is new. Symptoms have improved. ma2
== END 2018-01-07 21:13 | disposition home or self-care (01) ==
LOC: ER 16:54 → ERHOLD 18:56 → UNDOADMOB 18:56 → ER 21:13
DX: L03.115 Cellulitis of right lower limb (principal); I89.1 Lymphangitis; E78.5 Hyperlipidemia, unspecified; I48.91 Unspecified atrial fibrillation; J44.9 Chronic obstructive pulmonary disease, unspecified; Z79.01 Long term (current) use of anticoagulants; Z79.82 Long term (current) use of aspirin
CPT/HCPCS: 36415; 80053; 83605 ×2; 85027; 87040 ×2; J7030; 96361; 96365; 99284

== ENCOUNTER 2018-01-14 15:14 | Inpatient (IN) | payer OTHER ==
--- OUTSIDE RECORDS SUMMARY | 2018-01-14 15:17 | XMS REPORT | Continuity of Care Document ---
:1940 Author Organization Interface Problems Problem Status Onset Classification Date Comments Source Date Reported Clostridium Active Problem 10/16/2017 Problem [facility] difficile<sup>1 8 added by Medical , 2</sup> Discern Center Expert. SEPSIS Active [facility] Medications Medication Details Route Status Patient Ordering Order Source Instructions Provider Date Famotidine 10 10 mg=1 tab, Active [place] MG Oral Tablet PO, BID, # 60 2018 Medical tab, 0 Center Refill(s), Pharmacy: [facility] [id number] memantine 5 mg 5 mg=1 tab, PO, Active [facility] oral tablet BID, # 60 tab, 2018 Medical 0 Refill(s), [place] [facility]: [facility] [id number] vancomycin 250 125 mg=2.5 mL, Active [place] mg/5 mL oral PO, ABXQ6H, # 2018 Medical solution 70 mL, 0 Center Refill(s), other apixaban 5 mg 5 mg, PO, Q12H, Active [facility] oral tablet # 60 tab, 0 2018 Medical Refill(s), [place] [facility] [id number] atorvastatin 10 10 mg=1 tab, Active [place] mg oral tablet PO, Bedtime, # 2018 Medical 30 tab, 0 Center Refill(s), [facility] [id number] Docusate Sodium 100 mg=1 cap, Active [place] 100 MG Oral PO, BID, # 60 2018 Medical Capsule cap, 0 Center [Colace] Refill(s), [facility] [id number] Vancomycin 125 mg=2.5 mL, Inactive [place] PO, ABXQ6H, 0 2018 Medical Refill(s) [place] Potassium 40 mEq, 2 tab, Inactive [facility] Chloride Route: PO, Drug 2018 Medical form: ERTAB, [place] BID, Dosing Weight 57.38, kg, Start date: [...] Patients with feeding tube less than 14 German (Dobhoff, J-tube etc) and pediatric and patients. With food and full glass of water atorvastatin 10 mg, 1 tab, No Longer [place] Route: PO, Drug Active 2017 Medical form: TAB, [place] Bedtime, kg, Start date: 10/11/17 21:00:00 CDT, Duration: 30 day, Stop date: 11/09/17 21:00:00 CDTNotes: (Same As: Lipitor) vancomycin 500 mg, Route: No Longer [place] IVPB, Drug Active 2017 Medical form: PDR/INJ, Center [id number], Start date: 10/11/17 17:00:00 CDT, Duration: 30 day, Stop date: 11/10/17 5:00:00 CDT, ABX Indication: Bone/Joint InfectionNotes: TIME CRITICAL MEDICATION (Same As: Vancocin) For adult patients only: Round to nearest 250 mg per Medical Staff approval Memantine 5 mg, 1 tab, No Longer [place] Route: PO, Drug Active 2017 Medical form: [...] MG 81 mg, 1 tab, No Longer [place] Enteric Coated Route: PO, Drug Active 2017 Medical Tablet form: ECTAB, Center Daily, kg, Start date: 10/11/17 9:00:00 CDT, Duration: 30 day, Stop date: 11/09/17 9:00:00 CDTNotes: Do not crush or chew. (Same As: Ecotrin) apixaban 5 mg, 1 tab, No Longer [place] Route: PO, Drug Active 2017 Medical form: TAB, Center Q12H, kg, Start date: 10/11/17 9:00:00 CDT, Duration: 30 day, Stop date: 11/09/17 21:00:00 CDTNotes: Same as: Eliquis Docusate 100 mg, 1 cap, No Longer [facility] Route: PO, Drug Active 2017 Medical form: CAP, BID, Center kg, Start date: 10/11/17 9:00:00 CDT, Duration: 30 day, Stop date: 11/09/17 17:00:00 CDTNotes: (Same as: Colace) (Do Not Crush) Flagyl 500 mg, 1 tab, No Longer [facility] Route: PO, Drug Active 2017 Medical form: TAB, Q8H, Center kg, Start date: 10/11/17 8:00:00 CDT, Duration: 30 day, Stop date: 11/10/17 0:00:00 CDT, ABX Indication: Infectious DiarrheaNotes: (Same as: Flagyl) Take with food/ avoid alcohol Albuterol 0.833 3 mL, Route: No Longer [place] MG/ML / INHALATION, Active 2017 Medical Ipratropium Drug Form: [place] 0.167 SOLN, kg, RQID, MG/ML Inhalant Start [...] 0:55:00 CDT Vancomycin 1.25 gm, Route: Inactive [place] IVPB, ONCE, kg, 2018 Medical Start date: [place] 10/11/17 0:45:00 CDT, Stop date: 10/11/17 0:45:00 CDT, ABX Indication: Bone/Joint InfectionNotes: TIME CRITICAL MEDICATION (Same As: Vancocin) Infusion rate 2001 mg: infuse over 2.5 hours For adult patients only: Round to nearest 250 mg per Medical Staff approval MEDICATION WASTE Product Size: 1000 mg Product Wasted: ___ mg Vancomycin 125 mg, 2.5 mL, No Longer [place] Route: PO, Drug Active 2018 Medical form: YAMILET [place] ABXQ6H, kg, Start date: 10/10/17 23:00:00 CDT, [...] g 1 gm, IV, Q24H, No Longer [facility] intravenous # 10 doses or Active 2018 Medical injection times, 0 Center Refill(s) metoprolol 12.5 mg=0.5 No Longer [facility] tartrate 25 mg tab, PO, BID, # Active 2018 Medical oral tablet 180 tab, 0 Center Refill(s) memantine 5 mg 5 mg=1 tab, PO, No Longer [facility] oral tablet BID, # 60 tab, Active 2018 Medical 0 Refill(s) Center Metronidazole 500 mg=1 tab, No Longer [place] 500 MG Oral PO, Q8H, # 30 Active 2018 Medical Tablet [Flagyl] tab, 0 Center Refill(s) Famotidine 10 10 mg=1 tab, No Longer [facility] MG Oral Tablet PO, BID, # 180 Active 2017 Medical tab, 0 Center Refill(s) Albuterol 0.833 3 ml, No Longer [facility] MG/ML / INHALATION, Active 2018 [facility] Ipratropium QID, # 30 ea, 0 Center [place] 0.167 Refill(s) MG/ML Inhalant Solution [DuoNeb] Docusate Sodium 100 mg=1 cap, No Longer [place] 100 MG Oral PO, BID, # 60 Active 2017 [facility] Capsule cap, 0 Center [Colace] Refill(s) atorvastatin 10 10 mg=1 tab, No Longer [facility] mg oral tablet PO, Bedtime, # Active 2018 Medical 30 tab, 0 Center Refill(s) Aspirin 81 MG 81 mg=1 tab, Active [facility] Enteric Coated PO, Daily, # 90 2018 Medical Tablet tab, 3 Center Refill(s) apixaban 5 mg 5 mg, PO, Q12H, No Longer [facility] oral tablet 0 Refill(s) Active 2018 [facility] Ondansetron 4 mg, 2 mL, No Longer [facility] Route: IVP, Active 2017 Medical Drug form: INJ, Center Q6H, kg, PRN Nausea & Vomiting, Start date: 10/10/17 21:02:00 CDT, Duration: 30 day, Stop date: 11/09/17 21:01:00 CDTNotes: (Same as: Zofran) MEDICATION WASTE Product Size: 4 mg Product Wasted: ___ mg Acetaminophen 650 mg, 2 tab, No Longer [facility] Route: PO, Drug Active 2017 Medical form: TAB, Q4H, Center kg, PRN Pain 1-3/Temp > 100.4 F, Start date: 10/10/17 21:02:00 CDT, Duration: 30 day, Stop date: 11/09/17 21:01:00 CDTNotes: Do not exceed 4 gm/day. (Same as: Tylenol) Allergies, Adverse Reactions, Alerts Substance Category Reaction Severity Reaction Status Date Comments Source type Reported NKDA Assertion Drug Active [facility] Immunizations Immunization Date Given Site Status Last Comments Source Updated pneumococcal 10/13/2017 Left completed [facility] 13-valent vaccine [facility] Results Order Name Results Value Reference Date Interpretation Comments Source Range ELECTROLYTES Sodium Lvl 139 meq/L 135 - 145 10/[address] ELECTROLYTES Glucose Lvl 81 mg/dL 70 - 99 10/[address] ELECTROLYTES BUN 13 mg/dL 7 - 22 10/[address] ELECTROLYTES Creatinine 0.71 0.50 - 10/13 [facility] Lvl mg/dL 1.40 [facility] ELECTROLYTES eGFR 89 10/13 Result Comment: The eGFR is calculated using the CKD-EPI formula. In most young, healthy individuals the eGFR will be > 90 mL/min/1.73m2. The eGFR declines with age. An eGFR of 60-89 may be normal in [facility] mL/min/1. some populations, particularly the elderly, for whom the CKD-EPI formula has not been extensively validated. Use of the eGFR is not recommended in the following populations: [address] Individuals with unstable creatinine concentrations, including [...] Lvl 8.4 mg/dL 8.5 - 10.5 10/[address] ELECTROLYTES Potassium Lvl 3.2 meq/L 3.5 - 5.1 10/[address] ELECTROLYTES Chloride Lvl 105 meq/L 95 - 109 10/[address] ELECTROLYTES CO2 23 meq/L 24 - 32 10/[address] ELECTROLYTES AGAP 14.2 10.0 - 10/13 [facility] meq/L 20.[address] [place] [address] HEMATOLOGY Basophils # 0.1 K/CMM 0.0 - 0.2 10/[address] HEMATOLOGY Eosinophils 2.9 % 0.0 - 4.0 10/[address] HEMATOLOGY Segs-Bands # 6.3 K/CMM 1.5 - 8.1 10/[address] HEMATOLOGY Monocytes # 1.3 K/CMM 0.0 - 0.8 10/13 [facility] HEMATOLOGY Lymphocytes # 2.4 K/CMM 1.0 - 5.5 10/13 [facility] HEMATOLOGY Eosinophils # 0.3 K/CMM 0.0 - 0.5 10/[address] HEMATOLOGY Lymphocytes 23.4 % 20.0 - 10/13 [facility] 40.0 [facility] HEMATOLOGY Segs 60.4 % 45.0 - 10/13 [facility] 75.0 [facility] HEMATOLOGY Monocytes 12.8 % 2.0 - 12.0 10/13 [facility] HEMATOLOGY Basophils 0.5 % 0.0 - 1.0 10/[address] HEMATOLOGY RBC 3.31 4.70 - 10/13 [facility] 6.10 [facility] HEMATOLOGY Hct 27.8 % 42.0 - 10/13 [facility] 54.0 [facility] HEMATOLOGY Hgb 9.2 g/dL 14.0 - 10/13 [facility] 18.0 [facility] HEMATOLOGY MCH 27.8 pg 27.0 - 10/13 [facility] 31.0 [facility] HEMATOLOGY MCV 84.2 fL 80.0 - 10/13 [facility] 94.0 [facility] HEMATOLOGY MCHC 32.9 g/dL 32.0 - 10/13 [facility] 36.0 [facility] HEMATOLOGY Platelet 300 K/CMM 133 - 450 10/[address] HEMATOLOGY RDW 18.3 % 11.5 - 10/13 [facility] 14.5 [facility] HEMATOLOGY MPV 7.8 fL 7.4 - 10.4 10/13 [facility] [address] [place] [address] HEMATOLOGY WBC 10.4 3.7 - 10.4 10/13 [facility] K/CMM [facility] CHEM PANEL eGFR 83 10/12 Result Comment: The eGFR is calculated using the CKD-EPI formula. In most young, healthy individuals the eGFR will be >90 mL/ min/1.73m2. The eGFR declines with age. An eGFR of 60-89 may be normal in [facility] mL/min/1 some populations, particularly the elderly, for whom the CKD-EPI formula has not been extensively validated. Use of the eGFR is not recommended in the following populations: [address] Individuals with unstable creatinine concentrations, including [...] Lvl 81 mg/dL 70 - 99 10/[address] CHEM PANEL Bili Total 0.5 mg/dL 0.2 - 1.3 10/[address] CHEM PANEL Alk Phos 51 unit/L 39 - 136 10/[address] CHEM PANEL AST 18 unit/L 0 - 37 10/[address] CHEM PANEL ALT 14 unit/L 0 - 65 10/[address] CHEM PANEL Albumin Lvl 2.0 g/dL 3.5 - 5.0 10/[address] CHEM PANEL Total Protein 6.0 g/dL 6.4 - 8.4 10/[address] CHEM PANEL Calcium Lvl 8.2 mg/dL 8.5 - 10.5 10/[address] CHEM PANEL CO2 23 meq/L 24 - 32 10/[address] CHEM PANEL Chloride Lvl 107 meq/L 95 - 109 10/[address] CHEM PANEL Potassium Lvl 3.4 meq/L 3.5 - 5.1 10/[address] CHEM PANEL Sodium Lvl 140 meq/L 135 - 145 10/[address] CHEM PANEL Creatinine 0.84 0.50 - 10/12 [facility] Lvl mg/dL 1.40 [facility] CHEM PANEL BUN 14 mg/dL 7 - 22 10/[address] CHEM PANEL A/G Ratio 0.5 0.7 - 1.6 10/[address] CHEM PANEL Globulin 4.0 g/dL 2.7 - 4.2 10/[address] CHEM PANEL B/C Ratio 17 6 - 25 10/[address] CHEM PANEL AGAP 13.4 10.0 - 10/12 [facility] meq/L 20.[address] [place] [address] CHEM PANEL Magnesium Lvl 1.9 mg/dL 1.8 - 2.4 10/12 [facility] [place] [address] CHEM PANEL Ammonia 52.0 <=45.0 10/12 [facility] umol/L uMol/L /2017 [facility] HEMATOLOGY Hct 26.2 % 42.0 - 10/12 [facility] 54.0 [facility] HEMATOLOGY Hgb 8.6 g/dL 14.0 - 10/12 [facility] 18.0 [facility] HEMATOLOGY MCHC 33.0 g/dL 32.0 - 10/12 [facility] 36.0 [facility] HEMATOLOGY MCH 27.4 pg 27.0 - 10/12 [facility] 31.0 [facility] HEMATOLOGY MCV 83.3 fL 80.0 - 10/12 [facility] 94.0 [facility] HEMATOLOGY RDW 18.3 % 11.5 - 10/12 [facility] 14.5 [facility] HEMATOLOGY MPV 7.7 fL 7.4 - 10.4 10/[address] HEMATOLOGY Platelet 294 K/CMM 133 - 450 10/[address] HEMATOLOGY RBC 3.15 4.70 - 10/12 [facility] M/CMM 6.10 [facility] HEMATOLOGY WBC 10.9 3.7 - 10.4 10/12 [facility] K/CMM /2017 [facility] HEMATOLOGY Eosinophils # 0.3 K/CMM 0.0 - 0.5 10/[address] HEMATOLOGY Monocytes # 1.3 K/CMM 0.0 - 0.8 10/[address] HEMATOLOGY Lymphocytes # 2.0 K/CMM 1.0 - 5.5 10/[address] HEMATOLOGY Basophils # 0.1 K/CMM 0.0 - 0.2 10/[address] HEMATOLOGY Segs 66.2 % 45.0 - 10/12 [facility] 75.0 2018 [facility] HEMATOLOGY Lymphocytes 18.0 % 20.0 - 10/12 [facility] 40.0 [facility] HEMATOLOGY Eosinophils 2.8 % 0.0 - 4.0 10/[address] HEMATOLOGY Monocytes 12.4 % 2.0 - 12.0 10/[address] HEMATOLOGY Segs-Bands # 7.2 K/CMM 1.5 - 8.1 10/[address] HEMATOLOGY Basophils 0.6 % 0.0 - 1.0 10/12 [facility] CHEM PANEL Lactic Acid 0.8 0.5 - 2.2 10/11 [facility] Lvl mMol/L [facility] CHEM PANEL Procalcitonin 0.73 0.00 - 10/11 [facility] Lvl ng/mL 0.10 [facility] HEMATOLOGY Sed Rate 45 mm/h 0 - 15 10/[address] IMMUNOLOGY C-REACTIVE 132.0 <=2.9 mg/L 10/11 [facility] PROTEIN mg/L [facility] MOLECULAR C difficile Positive 1 Negative 10/11 Result [facility] DIAGNOSTIC DNA Comment: Medical *ABN* "Significant Center Findings (10/11/17 12:26 AM) called to Augie Bautista at 10/11/2017 08:17 by DO. Read Back OK." CHEM PANEL Phosphorus 3.3 mg/dL 2.5 - 4.5 10/11 [facility]2017 [facility] CHEM PANEL Magnesium Lvl 1.9 mg/dL 1.8 - 2.4 10/11 [facility]2017 [facility] CHEM PANEL eGFR 73 10/11 Result Comment: The eGFR is calculated using the CKD-EPI formula. In most young, healthy individuals the eGFR will be >90 mL/ min/1.73m2. The eGFR declines with age. An eGFR of 60-89 may be normal in [facility] mL/min/1. some populations, particularly the elderly, for whom the CKD-EPI formula has not been extensively validated. Use of the eGFR is not recommended in the following populations: [place] [address] Center Individuals with unstable creatinine concentrations, including [...] AST 18 unit/L 0 - 37 10/11 [facility] CHEM PANEL Alk Phos 56 unit/L 39 - 136 10/[address] CHEM PANEL Bili Total 0.5 mg/dL 0.2 - 1.3 10/[address] CHEM PANEL Total Protein 6.4 g/dL 6.4 - 8.4 10/[address] CHEM PANEL ALT 16 unit/L 0 - 65 10/[address] CHEM PANEL Chloride Lvl 105 meq/L 95 - 109 10/[address] CHEM PANEL Potassium Lvl 3.8 meq/L 3.5 - 5.1 10/[address] CHEM PANEL Albumin Lvl 2.3 g/dL 3.5 - 5.0 10/[address] CHEM PANEL Calcium Lvl 8.5 mg/dL 8.5 - 10.5 10/[address] CHEM PANEL CO2 25 meq/L 24 - 32 10/[address] CHEM PANEL Sodium Lvl 138 meq/L 135 - 145 10/[address] CHEM PANEL Creatinine 0.98 0.50 - 10/11 [facility] Lvl mg/dL 1.[address] [place] [address] CHEM PANEL BUN 20 mg/dL 7 - 22 10/[address] CHEM PANEL Glucose Lvl 103 mg/dL 70 - 99 10/[address] CHEM PANEL A/G Ratio 0.6 0.7 - 1.6 10/[address] CHEM PANEL AGAP 11.8 10.0 - 10/11 [facility] meq/L 20.0 [facility] CHEM PANEL B/C Ratio 20 6 - 25 10/[address] CHEM PANEL Globulin 4.1 g/dL 2.7 - 4.2 10/[address] HEMATOLOGY Basophils 0.5 % 0.0 - 1.0 10/[address] HEMATOLOGY Segs-Bands # 17.5 1.5 - 8.1 10/11 [facility] K/CM[address] HEMATOLOGY Eosinophils 0.5 % 0.0 - 4.0 10/[address] HEMATOLOGY Lymphocytes 8.5 % 20.0 - 10/11 [place] 40.0 [facility] HEMATOLOGY Basophils # 0.1 K/CMM 0.0 - 0.2 10/[address] HEMATOLOGY Lymphocytes # 1.8 K/CMM 1.0 - 5.5 10/[address] HEMATOLOGY Monocytes 8.3 % 2.0 - 12.0 10/[address] HEMATOLOGY Monocytes # 1.8 K/CMM 0.0 - 0.8 10/11 [facility] HEMATOLOGY Eosinophils # 0.1 K/CMM 0.0 - 0.5 10/11 [facility] HEMATOLOGY Segs 82.2 % 45.0 - 10/11 [facility] 75.0 [facility] HEMATOLOGY Platelet 318 K/CMM 133 - 450 10/11 [facility] HEMATOLOGY MPV 7.3 fL 7.4 - 10.4 10/11 [facility] HEMATOLOGY WBC 21.3 3.7 - 10.4 10/11 [facility] K/CMM [facility] HEMATOLOGY RDW 18.6 % 11.5 - 10/11 [facility] 14.5 [facility] HEMATOLOGY Hct 27.6 % 42.0 - 10/11 [facility] 54.0 [facility] HEMATOLOGY Hgb 9.0 g/dL 14.0 - 10/11 [facility] 18.0 [facility] HEMATOLOGY RBC 3.31 4.70 - 10/11 [facility] M/CMM 6.10 [facility] HEMATOLOGY MCV 83.3 fL 80.0 - 10/11 [facility] 94.0 [facility] HEMATOLOGY MCH 27.2 pg 27.0 - 10/11 [facility] 31.0 [facility] HEMATOLOGY MCHC 32.7 g/dL 32.0 - 10/11 [facility] 36.0 [facility] Vital Signs Vital Sign Value Date Comments Source Systolic (mm Hg) 163 10/13/2017 [facility] Diastolic (mm Hg) 73 10/13/2017 [facility] Temperature Oral (F) 97.4 F 10/13/2017 [facility] Heart Rate 74 10/13/2017 [facility] Systolic (mm Hg) 172 10/13/2017 [facility] Diastolic (mm Hg) 71 10/13/2017 [facility] Respitory Rate 20 10/13/2017 [facility] Respitory Rate 18 10/13/2017 [facility] Temperature Oral (F) 97.2 F 10/13/2017 [facility] Heart Rate 62 10/13/2017 [facility] Systolic (mm Hg) 163 10/13/2017 [facility] Diastolic (mm Hg) 80 10/13/2017 [facility] Heart Rate 83 10/13/2017 [facility] Temperature Oral (F) 97.4 F 10/13/2017 [facility] Respitory Rate 18 10/13/2017 [facility] Height 175.2 cm 10/11/2017 [facility] Weight 57.38 10/11/2017 [facility] Height 175.2 cm 10/11/2017 [facility] Weight 57.38 10/11/2017 [facility] BMI Calculated 18.69 10/11/2017 [facility] Encounters Location Location Encounter Encounter Reason Attending ADM DC Status Source Details Type Number For Provider Date Date Visit [facility] [id number] Non 10/10 10/13 [facility] /2017 [facility] Procedures Procedure Code Date Perfomer Comments Source
[2018-01-14] MEDS ORDERED: NA CHLORIDE 0.9% 1,000 ML ONE (16:07)
[2018-01-14 16:11] LABS: Absolute Lymphocytes (CBC) 1.8 K/uL (0.7-4.9); Absolute Monocytes 1.2 K/uL (0.1-1.3); Absolute Neutrophil 3.5 K/uL (1.8-8.0); Basophils % 1.1 % (0-1.3); Eosinophils % 5.6 % (0-4.4); Hematocrit 35.4 % (39.6-49.0); MCH 28.9 pg (27.0-35.0); MCV 86.8 fL (80-100); MPV 8.2 fL (7.6-11.3); Monocytes % 17.5 % (3.3-12.3); RBC Red Blood Cell Count 4.08 M/uL (4.33-5.43)
[2018-01-14 16:34] LABS: Protime INR 1.39
--- NOTE | 2018-01-14 16:36 | RAD REPORT ---
EXAM DESCRIPTION: RAD - Chest Single View - 01/14/2018 4:25 pm CLINICAL HISTORY: Cough, possible preop chest examination for right foot wound treatment COMPARISON: September 22 TECHNIQUE: AP portable chest image was obtained 1610 hours . FINDINGS: Baseline fibrotic lung pattern is present. No peripheral mass or consolidation. No acute f ailure findings. PICC line has been removed since the comparison. Mild cardiomegaly is present and st able. No acute vascular engorgement suspected. Trachea is midline. No measurable pleural effusion and no pneumothorax. No gross bony abnormality seen. No acute aortic findings suspected. IMPRESSION: Interstitial fibrotic lung pattern similar to comparison. No acute finding.
[2018-01-14 16:53] LABS: ALT/SGPT 18 U/L (12-78); AST/SGOT 24 U/L (15-37); Albumin 3.4 g/dL (3.4-5.0); Alkaline Phosphatase 90 U/L (45-117); BUN Blood Urea Nitrogen 30 mg/dL (7-18); Bicarbonate 25 mmol/L (21-32); Bilirubin Direct < 0.1 mg/dL (0-0.2); Bilirubin Total 0.3 mg/dL (0.2-1.0); CKMB Creatine Kinase MB 4.2 ng/mL (0.3-3.6); Creatine Phosphokinase 209 U/L (39-308); Glucose Level 71 mg/dL (74-106); Magnesium 2.5 mg/dL (1.8-2.4); NT PRO-BNP 9388 pg/mL (<450); Protein, Total 7.8 g/dL (6.4-8.2); Sodium Level 134 mmol/L (136-145); Troponin (Emerg Dept Use Only) 0.04 ng/mL (0.0-0.045)
[2018-01-14] MEDS ORDERED: VANCOMYCIN 1 GM/250 ML BAG ONE (17:09)
--- NOTE | 2018-01-14 17:25 | ER ---
Nurse's Notes [facility] Name: Amari Espinal Sr Age: 77 yrs Sex: Male : 1940 Arrival Date: 01/14/2018 Time: 15:15 Bed 7 Private MD: Stvee Frederick T Diagnosis: Cellulitis and acute lymphangitis of other parts of limb-failed out patient;Hyperkalemia;Unspecified kidney failure Presentation: 01/14 15:21 Presenting complaint: Patient states: seen here on the for wound to right second sg toe that began back in April. sent us here to get checked out because its getting worse and not better with the medications. Transition of care: patient was not received from another setting of care. Onset of symptoms was January 14, 2018. Initial Sepsis Screen: Does the patient have a suspected source of infection? Yes: Skin breakdown/wound. Care prior to arrival: None. 15:21 Method Of Arrival: Ambulatory sg 15:21 Acuity: TEAGAN 3 sg 19:38 Risk Assessment: Do you want to hurt yourself or someone else? Patient reports no ak1 desire to harm self or others. Initial Sepsis Screen: Does the patient meet any 2 criteria? No. Patient's initial sepsis screen is negative. Historical: - Allergies: 15:20 No Known Allergies; sg - Home Meds: 19:40 Aricept 5 mg Oral tab 1 tab once daily [Active]; aspirin 81 mg Oral chew [Active]; ak1 atorvastatin 10 mg Oral tab 1 tab once daily [Active]; carvedilol 6.25 mg Oral tab 1 tab 2 times per day [Active]; Cefuroxime Oral 500 mg [Active]; donepezil 5 mg Oral tab 1 tab once daily [Active]; Eliquis 5 mg Oral tab 1 tab [Active]; famotidine 20 mg Oral tab 1 tab once daily [Active]; GlycoLax 17 gram/dose Oral powd once daily [Active]; ipratropium bromide 0.02 % inhalation soln [Active]; magnesium oxide 400 mg Oral tab [Active]; memantine 5 mg Oral tab 2 tabs 2 times per day [Active]; methocarbamol 500 mg Oral tab [Active]; metoprolol tartrate 25 mg Oral tab 1 tab 2 times per day [Active]; Namenda Oral [Active]; rosuvastatin 5 mg Oral tab 1 tab once daily [Active]; 19:43 senna 8.6 mg oral tab 1 tabs once daily [Active]; famotidine 20 mg Oral tab 1 tab once aa1 daily [Active]; methocarbamol 500 mg Oral tab 1 tabs three times a day [Active]; Multiple Vitamins oral tab 1 tab daily [Active]; clindamycin HCl 300 mg Oral cap 1 cap every 6 hours [Active]; Eliquis 5 mg Oral tab 1 tab 2 times per day [Active]; atorvastatin 10 mg Oral tab 1 tab nightly [Active]; aspirin 81 mg Oral chew 1 tab once daily [Active]; - PMHx: 15:20 Atrial Fib; COPD; Dementia; hemiplagia affecting left side; Hyperlipidemia; PVD; TIA; sg - Immunization history:: Adult Immunizations up to date. - Social history:: Smoking status: Patient/guardian denies using tobacco. - Ebola Screening: : Patient negative for fever greater than or equal to 101.5 degrees Fahrenheit, and additional compatible Ebola Virus Disease symptoms Patient denies exposure to infectious person Patient denies travel to an Ebola-affected area in the 21 days before illness onset No symptoms or risks identified at this time. - Family history:: not pertinent. Screenin:08 Abuse screen: Denies threats or abuse. Denies injuries from another. Nutritional ss screening: No deficits noted. Tuberculosis screening: Never had TB. Fall Risk No fall in past 12 months (0 pts). Secondary diagnosis (15 points) dementia, IV access (20 points). Ambulatory Aid- None/Bed Rest/Nurse Assist (0 pts). Gait- Normal/Bed Rest/Wheelchair (0 pts) Mental Status- Overestimates/Forgets Limitations (15 pts.). Assessment: 16:00 General: Appears in no apparent distress. comfortable, Behavior is calm, restless. ss Pain: Denies pain. Neuro: Level of Consciousness is awake, alert, obeys commands, Oriented to person, Pupils are PERRLA. Cardiovascular: Capillary refill < 3 seconds is brisk in bilateral fingers. Respiratory: Airway is patent Trachea midline Respiratory effort is even, unlabored, Respiratory pattern is regular, symmetrical, Breath sounds are coarse bilaterally. Respiratory: Parent/caregiver reports the patient having cough that is. GI: Patient currently denies abdominal pain, diarrhea, nausea, vomiting. : No signs and/or symptoms were reported regarding the genitourinary system. EENT: Nares are clear. Derm: Skin is fragile, is thin, Skin is dry, Skin is pink, Wound noted Other: small skin tear noted to L elbow. Derm: wound noted to L second toe with foul odor. No bleeding noted. Musculoskeletal: Circulation, motion, and sensation intact. Range of motion: intact in all extremities, Swelling absent. 17:00 Reassessment: Pt is restless, but cooperative. Family reports that this is baseline for ss patient. Side rails up x2. Family verbalizes understanding that if they must leave the room to notify nursing staff so that we may provide a sitter to prevent fall. 18:00 Reassessment: Patient appears in no apparent distress at this time. Patient up for admission, awaiting admission order to be placed so that room may be assigned. Family at bedside. Pt is awake, alert and obeys commands. Side rails up x2. Call light remains within reach. Vital Signs: 16:08 BP 139 / 65; Pulse 95; Resp 20 S; Temp 97.5(O); Pulse Ox 97% on R/A; Weight 65.77 kg; ss Height 5 ft. 7 in. (170.18 cm); 16:30 BP 140 / 81; Pulse 84; Resp 20; Pulse Ox 96% ; sv 19:14 Pulse 94; Resp 18; Pulse Ox 98% on Nebulizer Mask; ss 19:55 BP 175 / 75; Pulse 98; Resp 22 S; Pulse Ox 98% on R/A; bb 16:08 Body Mass Index 22.71 (65.77 kg, 170.18 cm) ED Course: 15:15 Patient arrived in ED. sb2 15:16 Steve Frederick MD is Private Physician. sb2 15:22 Triage completed. sg 15:22 Arm band placed on. sg 15:48 Harley Shay MD is Attending Physician. álvaro 15:49 Flower Henry, JARRED is Primary Nurse. ss 16:00 Inserted saline lock: 20 gauge in right antecubital area, using aseptic technique. ss Blood collected. 16:08 Patient has correct armband on for positive identification. Bed in low position. Call ss light in reach. Side rails up X2. cardiac monitor technician on. Pulse ox on. NIBP on. 16:22 EKG done, by sap technical architect. reviewed by Harley Shay MD. 3 16:23 XRAY Chest (1 view) In Process Unspecified. EDMS 17:02 Caprice Wang MD is Hospitalizing Provider. álvaro 19:40 No provider procedures requiring assistance completed. Patient admitted, IV remains in ak1 place. Administered Medications: 16:26 Drug: NS 0.9% 1000 ml Route: IV; Rate: 125 ml/hr; Site: right antecubital; ss 18:57 Follow up: IV Status: Infusion continued upon admission ss 17:10 Drug: vancoMYCIN 1 grams Route: IVPB; Infused Over: 2 hrs; Site: right antecubital; ss 18:58 Follow up: IV Status: Infusion continued upon admission ss 19:03 Not Given (Physician Discretion): NS 0.9% 500 ml IV at bolus once iw 19:13 Drug: Kayexalate 45 grams Route: PO; ss 20:22 Follow up: Response: No adverse reaction ak1 19:13 Drug: Albuterol - atroVENT (3:1) (2.5 mg - 0.5 mg) 3 ml Route: Nebulizer; ss 20:21 Follow up: Response: No adverse reaction ak1 20:22 Drug: Meropenem 1 grams Route: IV; Rate: per protocol; Site: right antecubital; ak1 20:22 Follow up: IV Status: Infusion continued upon admission ak1 Outcome: 17:03 Decision to Hospitalize by Provider. álvaro 19:54 Admitted to Tele accompanied by tech, via stretcher, room 431, with chart, Report bb called to Linnette STERN 20:23 Condition: stable ak1 20:23 Patient left the ED. ak1 Signatures: Dispatcher [employer] EDIA Shantelle Bunch, RN Harrison Vasquez RN JARRDE sg Raiza Engle RN RN aa1 Harley Shay MD MD cha Ballard, Brenda RN Flower Plaza RN RN Ivonne Murillo RN RN ak1 Grecia Olmedo 2 Ananya Escalante 3 Neyda Fallon RN
--- NOTE | 2018-01-14 17:25 | EDPHYS ---
Physician Documentation [facility] Name: Amari Espinal Sr Age: 77 yrs Sex: Male : 1940 Arrival Date: 01/14/2018 Time: 15:15 Bed 7 Private MD: Steve Frederick T ED Physician Harley Shay HPI: 01/14 16:58 This 77 yrs old Male presents to ER via Ambulatory with complaints of SENT BY álvaro ROBINS;INFECTION. 16:58 The patient presents with decreased range of motion, pain, swelling, tenderness. The álvaro complaints affect the lateral aspect of right foot and dorsum of right foot. Context: resulted from an unknown cause. Onset: The symptoms/episode began/occurred 3 day(s) ago. Modifying factors: The symptoms are alleviated by nothing. the symptoms are aggravated by nothing. Associated signs and symptoms: The patient has no apparent associated signs or symptoms. Treatment prior to arrival includes: no previous treatment. Severity of symptoms: At their worst the symptoms were mild, moderate, in the emergency department the symptoms are actually worse, markedly. The patient has experienced similar episodes in the past, several times. Historical: - Allergies: 15:20 No Known Allergies; sg - Home Meds: 19:40 Aricept 5 mg Oral tab 1 tab once daily [Active]; aspirin 81 mg Oral chew [Active]; ak1 atorvastatin 10 mg Oral tab 1 tab once daily [Active]; carvedilol 6.25 mg Oral tab 1 tab 2 times per day [Active]; Cefuroxime Oral 500 mg [Active]; donepezil 5 mg Oral tab 1 tab once daily [Active]; Eliquis 5 mg Oral tab 1 tab [Active]; famotidine 20 mg Oral tab 1 tab once daily [Active]; GlycoLax 17 gram/dose Oral powd once daily [Active]; ipratropium bromide 0.02 % inhalation soln [Active]; magnesium oxide 400 mg Oral tab [Active]; memantine 5 mg Oral tab 2 tabs 2 times per day [Active]; methocarbamol 500 mg Oral tab [Active]; metoprolol tartrate 25 mg Oral tab 1 tab 2 times per day [Active]; Namenda Oral [Active]; rosuvastatin 5 mg Oral tab 1 tab once daily [Active]; 19:43 senna 8.6 mg oral tab 1 tabs once daily [Active]; famotidine 20 mg Oral tab 1 tab once aa1 daily [Active]; methocarbamol 500 mg Oral tab 1 tabs three times a day [Active]; Multiple Vitamins oral tab 1 tab daily [Active]; clindamycin HCl 300 mg Oral cap 1 cap every 6 hours [Active]; Eliquis 5 mg Oral tab 1 tab 2 times per day [Active]; atorvastatin 10 mg Oral tab 1 tab nightly [Active]; aspirin 81 mg Oral chew 1 tab once daily [Active]; - PMHx: 15:20 Atrial Fib; COPD; Dementia; hemiplagia affecting left side; Hyperlipidemia; PVD; TIA; sg - Immunization history:: Adult Immunizations up to date. - Social history:: Smoking status: Patient/guardian denies using tobacco. - Ebola Screening: : Patient negative for fever greater than or equal to 101.5 degrees Fahrenheit, and additional compatible Ebola Virus Disease symptoms Patient denies exposure to infectious person Patient denies travel to an Ebola-affected area in the 21 days before illness onset No symptoms or risks identified at this time. - Family history:: not pertinent. ROS: 16:58 Constitutional: Negative for fever, chills, and weight loss, Eyes: Negative for injury, álvaro pain, redness, and discharge, ENT: Negative for injury, pain, and discharge, Neck: Negative for injury, pain, and swelling, Cardiovascular: Negative for chest pain, palpitations, and edema, Respiratory: Negative for shortness of breath, cough, wheezing, and pleuritic chest pain, Abdomen/GI: Negative for abdominal pain, nausea, vomiting, diarrhea, and constipation, Back: Negative for injury and pain, : Negative for injury, bleeding, discharge, and swelling, Neuro: Negative for headache, weakness, numbness, tingling, and seizure, Psych: Negative for depression, anxiety, suicide ideation, homicidal ideation, and hallucinations, Allergy/Immunology: Negative for hives, rash, and allergies, Endocrine: Negative for neck swelling, polydipsia, polyuria, polyphagia, and marked weight changes. 16:58 MS/extremity: Positive for pain, swelling, tenderness, of the dorsum of right foot and right second toe. Exam: 16:58 Constitutional: This is a well developed, well nourished patient who is awake, alert, álvaro and in no acute distress. Head/Face: Normocephalic, atraumatic. Eyes: Pupils equal round and reactive to light, extra-ocular motions intact. Lids and lashes normal. Conjunctiva and sclera are non-icteric and not injected. Cornea within normal limits. Periorbital areas with no swelling, redness, or edema. ENT: Nares patent. No nasal discharge, no septal abnormalities noted. Tympanic membranes are normal and external auditory canals are clear. Oropharynx with no redness, swelling, or masses, exudates, or evidence of obstruction, uvula midline. Mucous membranes moist. Neck: Trachea midline, no thyromegaly or masses palpated, and no cervical lymphadenopathy. Supple, full range of motion without nuchal rigidity, or vertebral point tenderness. No Meningismus. Chest/axilla: Normal chest wall appearance and motion. Nontender with no deformity. No lesions are appreciated. Cardiovascular: Regular rate and rhythm with a normal S1 and S2. No gallops, murmurs, or rubs. Normal PMI, no JVD. No pulse deficits. Respiratory: Lungs have equal breath sounds bilaterally, clear to auscultation and percussion. No rales, rhonchi or wheezes noted. No increased work of breathing, no retractions or nasal flaring. Abdomen/GI: Soft, non-tender, with normal bowel sounds. No distension or tympany. No guarding or rebound. No evidence of tenderness throughout. Back: No spinal tenderness. No costovertebral tenderness. Full range of motion. Male : Normal genitalia with no discharge or lesions. Neuro: Awake and alert, GCS 15, oriented to person, place, time, and situation. Cranial nerves II-XII grossly intact. Motor strength 5/5 in all extremities. Sensory grossly intact. Cerebellar exam normal. Normal gait. Psych: Awake, alert, with orientation to person, place and time. Behavior, mood, and affect are within normal limits. 16:58 Musculoskeletal/extremity: ROM: full active range of motion, full passive range of motion, Circulation is intact in all extremities. the right foot Compartment Syndrome exam of affected extremity: is normal. DVT Exam: No signs of deep vein thrombosis. no pain, no swelling, negative Homans' sign noted on exam, no appreciated bluish discoloration, erythema, increased warmth, that is mild. 16:58 Skin: abscess, that is small, of the right second toe. Vital Signs: 16:08 BP 139 / 65; Pulse 95; Resp 20 S; Temp 97.5(O); Pulse Ox 97% on R/A; Weight 65.77 kg; ss Height 5 ft. 7 in. (170.18 cm); 16:30 BP 140 / 81; Pulse 84; Resp 20; Pulse Ox 96% ; sv 19:14 Pulse 94; Resp 18; Pulse Ox 98% on Nebulizer Mask; ss 19:55 BP 175 / 75; Pulse 98; Resp 22 S; Pulse Ox 98% on R/A; bb 16:08 Body Mass Index 22.71 (65.77 kg, 170.18 cm) ss MDM: 15:48 Patient medically screened. [facility] 17:01 Data reviewed: vital signs, nurses notes, lab test result(s), EKG, radiologic studies, álvaro plain films. 01/14 15:53 Order name: Basic Metabolic Panel [facility] 01/14 15:53 Order name: CBC with Diff; Complete Time: 17:35 [facility] 01/14 15:53 Order name: Ckmb [facility] 01/14 15:53 Order name: CPK [facility] 01/14 15:53 Order name: LFT's [facility] 01/14 15:53 Order name: Magnesium [facility] 01/14 15:53 Order name: NT PRO-BNP [facility] 01/14 15:53 Order name: PT-INR; Complete Time: 17:35 [facility] 01/14 15:53 Order name: Ptt, Activated; Complete Time: 17:35 [facility] 01/14 15:53 Order name: Troponin (emerg Dept Use Only) [facility] 01/14 15:53 Order name: Sed Rate; Complete Time: 17:35 [facility] 01/14 15:53 Order name: Urine Culture [facility] 01/14 15:54 Order name: Basic Metabolic Panel EDIA 01/14 19:09 Order name: Urine Dipstick--Ancillary (enter results) rg2 01/14 15:53 Order name: XRAY Chest (1 view); Complete Time: 17:35 [facility] 01/14 15:53 Order name: EKG; Complete Time: 15:54 [facility] 01/14 15:53 Order name: Cardiac monitoring; Complete Time: 16:12 [facility] 01/14 15:53 Order name: EKG - Nurse/Tech; Complete Time: 16:12 [facility] 01/14 15:53 Order name: IV Saline Lock; Complete Time: 16:12 [facility] 01/14 16:57 Order name: US LE [employer] [facility] 01/14 17:09 Order name: CONS Physician Consult [facility] 01/14 17:09 Order name: CONS Physician Consult [facility] 01/14 18:37 Order name: [facility] 01/14 19:29 Order name: Urine Dipstick-Ancillary [facility] 01/14 15:53 Order name: Labs collected and sent; Complete Time: 16:12 [facility] 01/14 15:53 Order name: O2 Per Protocol; Complete Time: 16:12 [facility] 01/14 15:53 Order name: O2 Sat Monitoring; Complete Time: 16:12 [facility] 01/14 15:53 Order name: Urine Dipstick-Ancillary (obtain specimen); Complete Time: 19:01 [facility] Administered Medications: 16:26 Drug: NS 0.9% 1000 ml Route: IV; Rate: 125 ml/hr; Site: right antecubital; ss 18:57 Follow up: IV Status: Infusion continued upon admission ss 17:10 Drug: vancoMYCIN 1 grams Route: IVPB; Infused Over: 2 hrs; Site: right antecubital; ss 18:58 Follow up: IV Status: Infusion continued upon admission ss 19:03 Not Given (Physician Discretion): NS 0.9% 500 ml IV at bolus once iw 19:13 Drug: Kayexalate 45 grams Route: PO; ss 20:22 Follow up: Response: No adverse reaction ak1 19:13 Drug: Albuterol - atroVENT (3:1) (2.5 mg - 0.5 mg) 3 ml Route: Nebulizer; ss 20:21 Follow up: Response: No adverse reaction ak1 20:22 Drug: Meropenem 1 grams Route: IV; Rate: per protocol; Site: right antecubital; ak1 20:22 Follow up: IV Status: Infusion continued upon admission ak1 Disposition: 01/14/18 17:03 Hospitalization ordered by Caprice Wang for Inpatient Admission. Preliminary diagnosis are Cellulitis and acute lymphangitis of other parts of limb - failed out patient, Hyperkalemia, Unspecified kidney failure. - Bed requested for Telemetry/MedSurg (Inpatient). - Status is Inpatient Admission. ak1 - Condition is Fair. - Problem is new. - Symptoms have improved. UTI on Admission? No Signatures: Dispatcher [employer] EDMS Kelin Saravia, RN RN dw Harrison Glez, RN RN sg Raiza Engle RN RN aa1 Harley Shay MD MD cha Smirch, Shelby, RN RN Ivonne Murillo RN RN ak1 Neyda Fallon RN Corrections: (The following items were deleted from the chart) 17:36 17:03 Hospitalization Ordered by Caprice Wang MD for Inpatient Admission. Preliminary [facility] diagnosis is Cellulitis and acute lymphangitis of other parts of limb - failed out patient. Bed requested for Telemetry/MedSurg (Inpatient). Status is Inpatient Admission. Condition is Fair. Problem is new. Symptoms have improved. UTI on Admission? No. álvaro 18:10 17:36 01/14/2018 17:03 Hospitalization Ordered by Caprice Wang MD for Inpatient álvaro Admission. Preliminary diagnosis is Cellulitis and acute lymphangitis of other parts of limb - failed out patient; Hyperkalemia. Bed requested for Telemetry/MedSurg (Inpatient). Status is Inpatient Admission. Condition is Fair. Problem is new. Symptoms have improved. UTI on Admission? No. álvaro 19:09 18:10 01/14/2018 17:03 Hospitalization Ordered by Caprice Wang MD for Inpatient Admission. Preliminary diagnosis is Cellulitis and acute lymphangitis of other parts of limb - failed out patient; Hyperkalemia; Unspecified kidney failure. Bed requested for Telemetry/MedSurg (Inpatient). Status is Inpatient Admission. Condition is Fair. Problem is new. Symptoms have improved. UTI on Admission? No. álvaro 20:23 19:09 01/14/2018 17:03 Hospitalization Ordered by Caprice Wang MD for Inpatient ak1 Admission. Preliminary diagnosis is Cellulitis and acute lymphangitis of other parts of limb - failed out patient; Hyperkalemia; Unspecified kidney failure. Bed requested for Telemetry/MedSurg (Inpatient). Status is Inpatient Admission. Condition is Fair. Problem is new. Symptoms have improved. UTI on Admission? No. dw
[2018-01-14 17:34] LABS: Potassium 5.6 mmol/L (3.5-5.1)
--- NOTE | 2018-01-14 17:59 | P.HP ---
Certification for Inpatient Patient admitted to: Inpatient With expected LOS: >2 Midnights Patient will require the following post-hospital care: None Practitioner: I am a practitioner with admitting privileges, knowledge of patient current condition, hospital course, and medical plan of care. Services: Services provided to patient in accordance with Admission requirements found in Title 42 Section 412.3 of the Code of Federal Regulations Patient History Date of Service: 01/14/18 Primary Care Provider: Dr Frederick Reason for admission: Right toe ESBL infection History of Present Illness: 77-year-old male with pmhx of atrial fibrillation on chronic anti coagulation therapy, hypertension, hyperlipidemia, PVD, PAD, COPD, Dementia and anemia presented to the ED after being seen in the [facility]. Patient was seen at the wound healing Center for his chronic right toe wound infection. Dr. Moore who evaluated the patient in the [facility], patient has failed outpatient treatment of right toe infection on oral medication and wound care. Wound culture drawn on the 01/11/18 at the [facility] are positive for MDR Proteus and Ecoli. Patient was thus sent over to the ER for direct admit for possible amputation of that toe versus foot after being evaluated by cardiology for his PAD and general surgery. 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 Allergies No Known Allergies Allergy (Verified 07/13/17 02:35) Home Medications: Apixaban [Eliquis] 5 mg PO BID 07/13/17 Aspirin 81 mg PO DAILY 07/13/17 Collagenase [Santyl Ointment*] 1 appl TOP DAILY 07/13/17 Ipratropium/Albuterol Sulfate [Iprat-Albut 0.5-3(2.5) mg/3 ml] 1 puff IH QID Memantine HCl 5 mg PO BID 07/13/17 Multivitamin [Daily Multiple Vitamin] 1 each PO DAILY 07/13/17 Rosuvastatin Calcium 5 mg PO BEDTIME 07/13/17 Zinc Sulfate [Zinc Sulfate*] 220 mg PO DAILY 07/13/17 Metoprolol Succinate [Toprol Xl*] 12.5 mg PO BEDTIME 08/24/17 Sennosides [Senna] 8.6 mg PO DAILY 08/24/17 Famotidine [Pepcid*] 1 tab PO BID #60 tab 09/23/17 Piper Tazo [Zosyn] 3.375 gm IV Q8H 42 Days vial 09/23/17 Vancomycin/0.9 % Sod Chloride [Vancomycin 1 G/100Ml-0.9% NaCl] 1 gm IV DAILY 42 Days plast..bag 09/23/17 - Past Medical/Surgical History Diabetic: No -: History of CVA -: Hypertension -: Dementia -: Dyslipidemia -: COPD -: Atrial fibrillation -: Chronic anti coagulation -: Chronic sacral wound -: Chronic heel wound -: Right lower extremity peripheral arterial stent -: 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 Patient is fully dependent on family. - Family History Sister -: Cancer - Social History Alcohol use: No CD- Drugs: No Caffeine use: Yes Review of Systems 10-point ROS is otherwise unremarkable Physical Examination - Physical Exam General: Alert, In no apparent distress, Cachectic, Demented HEENT: Atraumatic, PERRLA, Mucous membr. moist/pink, EOMI, Sclerae nonicteric Neck: Supple, 2+ carotid pulse no bruit, No LAD, Without JVD or thyroid abnormality Respiratory: Clear to auscultation bilaterally, Normal air movement Cardiovascular: Regular rate/rhythm, Normal S1 S2 Gastrointestinal: Normal bowel sounds, No tenderness Musculoskeletal: Erythema, Tenderness, Warmth Integumentary: Tenderness/swelling, Erythema, Warmth, Arterial ulcer Neurological: Normal strength at 5/5 x4 extr, Normal tone, Abnormal strength, Abnormal sensation Lymphatics: No axilla or inguinal lymphadenopathy - Studies Laboratory Data (last 24 hrs) 01/14/18 16:00: PT 16.4 H, INR 1.39, APTT 40.4 H 01/14/18 16:00: WBC 6.9 D, Hgb 11.8 L, Hct 35.4 L, Plt Count 304 01/14/18 16:00: Sodium 134 L, Potassium 5.6 H*, BUN 30 H, Creatinine 1.60 H, Glucose 71 L, Magnesium 2.5 H, Total Bilirubin 0.3, AST 24, ALT 18, Alkaline Phosphatase 90 Assessment and Plan - Problems (Diagnosis) (1) Right second toe ulcer Current Visit: Yes Status: Acute Plan: Right 2nd toe ulcer with chronic wound that failed outpt therapy. Wound Culture + for MDR proteus and ECOLI -IV meropenum 1g BID -Gen Surgery consulted. Awaiting reccs -possible amputation -Cardiology consulted for PAD. awaiting reccs -Possible intervention needed -MRI of the foot -Wound care consulted as well (2) PAD (peripheral artery disease) Onset Date: 09/21/17 Current Visit: No Status: Chronic Plan: Patient with severe PAD and stent placement in the past -Cardiology consulted for further assessment (3) Atrial fibrillation Onset Date: 09/21/17 Current Visit: No Status: Chronic Plan: Rate and rhythm is controlled at this time will restart home medication Qualifiers: Atrial fibrillation type: paroxysmal Qualified Code(s): I48.0 - Paroxysmal atrial fibrillation (4) Chronic anticoagulation Onset Date: 09/21/17 Current Visit: No Status: Chronic (5) COPD (chronic obstructive pulmonary disease) Onset Date: 09/21/17 Current Visit: No Status: Chronic Qualifiers: COPD type: chronic bronchitis (6) History of CVA (cerebrovascular accident) Onset Date: 09/21/17 Current Visit: No Status: Chronic (7) Hyperlipidemia Onset Date: 09/21/17 Current Visit: No Status: Chronic Qualifiers: Hyperlipidemia type: unspecified Qualified Code(s): E78.5 - Hyperlipidemia , unspecified (8) Hypertension Onset Date: 09/21/17 Current Visit: No Status: Chronic Qualifiers: Hypertension type: essential hypertension Qualified Code(s): I10 - Essential (primary) hypertension (9) Anemia Onset Date: 09/21/17 Current Visit: No Status: Chronic Qualifiers: Anemia type: iron deficiency Iron deficiency anemia type: unspecified iron deficiency Qualified Code(s): D50.9 - Iron deficiency anemia, unspecified (10) Cachectic Current Visit: No Status: Acute - Plan Patient to be admitted to a medical-surgical floor for surgery and cardiovascular evaluation at this time. Will continue with IV meropenem at this time for MDR Proteus and ecoli. Discharge Plan: Other Plan to discharge in: 72 Hours - Advance Directives Does patient have a Living Will: No Does patient have a Durable POA for Healthcare: No - Code Status/Comfort Care Code Status Assessed: Yes Critical Care: No
[2018-01-14] MEDS ORDERED: VANCOMYCIN/NS 1 gm 1 GM/250 ML BAG IV ONE (18:00)
[2018-01-14] MEDS ORDERED: Meropenem 1,000 MG in NA CHLORIDE 0.9% 100 ML IV ONE (18:00)
--- NOTE | 2018-01-14 18:37 | RAD REPORT ---
EXAM DESCRIPTION: US - Lower Extremity Artery Uni Ltd - 01/14/2018 6:15 pm CLINICAL HISTORY: PAIN COMPARISON: Upper Lower Extrem Art Multi dated 09/04/2017 FINDINGS: Grayscale, spectral, color and power Doppler interrogation of the right lower extremity ar terial system was performed. The right common femoral artery demonstrates biphasic waveform with peak systolic velocity 201 cm/sec ond. The right superficial femoral artery and popliteal artery is appear chronically occluded. Monophasic low-amplitude flow is seen in the right posterior tibial and dorsalis pedis arteries, like ly from collateral vessels. Peak systolic velocities in these vessels are approximately 38 cm/second. 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 Low-amplitude monophasic flow is seen distally likely from reconstituted flow via collateralization.
[2018-01-14] MEDS ORDERED: ALBUTEROL 2.5 MG/3 ML NEB SOL ONE (19:10)
[2018-01-14] MEDS ORDERED: IPRATROPIUM BROM 0.5MG/2.5ML ONE (19:10)
[2018-01-14] MEDS ORDERED: SOD POLYSTYREN SUL 15 GM/60 ML UCUP ONE (19:11)
--- NOTE | 2018-01-14 19:23 | EKG ---
Test Date: 2018-01-14 Test Time: 16:07:00 Computer Aide: TAMIKO MEASUREMENT RESULTS: Intervals: Rate: 89 AL: 202 QRSD: 106 QT: 396 QTc: 481 Willard: P: 82 AL: 202 QRS: 65 T: -61 INTERPRETIVE STATEMENTS: Sinus rhythm with occasional premature ventricular complexes Cannot rule out Inferior infarct, age undetermined Abnormal ECG Compared to ECG 04/19/2017 20:16:15 Myocardial infarct finding now present Sinus tachycardia no longer present ST (T wave) deviation no longer present Electronically Signed On 01-14-18 19:22:37 CDT by Oskar Dorantes
[2018-01-14 19:29] LABS: Urine Blood TRACE (NEG); Urine Glucose NEGATIVE (NEG); Urine Protein NEGATIVE (NEG); Urine Specific Gravity 1.025 (1.005-1.030); Urine pH 5.5 (5.0-7.0)
[2018-01-14] MEDS ORDERED: ACETAMINOPHEN 500 MG TAB PO PRN (20:28)
[2018-01-14] MEDS ORDERED: ONDANSETRON 4 MG/2 ML VIAL IV PRN (20:28)
[2018-01-14] MEDS ORDERED: Meropenem 1000 MG/VIAL IV SCH (21:00)
[2018-01-14] MEDS: INSULIN -REGULAR HUMAN 50 UNIT/0.5 ML ML SQ SCH (21:00)
[2018-01-15] MEDS ORDERED: MORPHINE 2 MG/ML SYR IV ONE (03:41)
--- NOTE | 2018-01-15 04:29 | CON ---
Date of Consultation: 01/14/2018 Reason For Service: Right foot cellulitis with nonhealing ulcer on the right second toe. History Of Present Illness: This is the case of a 77-year-old patient, who comes to us admitted in [facility] for a nonhealing wound of the right foot region. Apparently, he was in the wound car e and oral antibiotics, but did not improve, so the patient was admitted to the hospital for a debrid ement. Most of the information is obtained from the chart since the patient cannot give much informa tion. He just wanted to go back to sleep. 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 Surgical History: Excision of a cancer lip, stent placement in the right lower extremity. Family History: Sister with cancer, but he does not always which cancer. Social History: He does smoke. He does drink alcohol. Allergies: NONE. Medications: Reviewed including Eliquis. Review of Systems: A 10-point otherwise unremarkable. Physical Examination: General: The patient is awake and alert. HEENT: Pupils are equal and reactive. Neck: Supple. Chest: Clear. Abdomen: Soft and depressible. No guarding or rebound. Extremities: Over the right lower extremity, the patient has area of cellulitis with a nonhealing wo und of the right second toe. The patient wants to go back to sleep. He has a gauze on the left heel region, but I cannot see what it is there. Hopefully before surgery, he let us evaluate that area t o see we have to clean that area too. There is some necrotic tissue present in that area of the righ foot region. Dorsalis pedis pulses bilaterally are diminished. Imaging: Doppler ultrasound shows occluded right SFA and popliteal artery chronically. Assessment: This is a 77-year-old patient with nonhealing wound of the right foot region with necrot ic tissue. The patient will need that debrided. The benefits and alternatives to the debridement we re fully explained to him, essentially with the family also. We will sign a consent for a debridemen t with benefits, alternatives, and risks fully explained include but not limited to infection, bleedi ng, damage to adjacent structures, anesthesia complication, nonhealing wound, [place], and even . He also understands this may not relieve the symptoms, he might need more than one surgical interventio n. He will require wound care. NILESH/EBENEZER Voice ID: [id number] Report ID: [id number]
[2018-01-15 04:41] LABS: Absolute Lymphocytes (CBC) 1.8 K/uL (0.7-4.9); Absolute Monocytes 1.3 K/uL (0.1-1.3); Absolute Neutrophil 4.2 K/uL (1.8-8.0); Basophils % 0.6 % (0-1.3); Eosinophils % 5.2 % (0-4.4); Hematocrit 31.6 % (39.6-49.0); MCH 28.9 pg (27.0-35.0); MCV 85.9 fL (80-100); MPV 8.6 fL (7.6-11.3); Monocytes % 16.6 % (3.3-12.3); RBC Red Blood Cell Count 3.69 M/uL (4.33-5.43)
[2018-01-15 04:52] LABS: Albumin 3.1 g/dL (3.4-5.0); Bilirubin Total 0.3 mg/dL (0.2-1.0); Potassium 4.6 mmol/L (3.5-5.1); Protein, Total 6.7 g/dL (6.4-8.2)
[2018-01-15 04:54] LABS: Protime INR 1.26
[2018-01-15 06:34] LABS: Blood Morphology Comment NOT SEEN (NOT SEEN); Platelet Estimate ADEQ; Urine White Blood Cell Casts OK
[2018-01-15] MEDS: INSULIN -REGULAR HUMAN 50 UNIT/0.5 ML ML SQ SCH ×4 (07:30→20:47)
[2018-01-15] MEDS: Meropenem 1,000 MG in NA CHLORIDE 0.9% 100 ML IV SCH ×2 (09:19→20:47)
[2018-01-15 09:22] LABS: Phosphorus 3.5 mg/dL (2.5-4.9)
[2018-01-15] MEDS ORDERED: Ringers Lactate 1,000 ML IV ONE (11:38)
[2018-01-15] MEDS ORDERED: MIDAZOLAM HCL 2 MG/2 ML INJ ONE (12:24)
[2018-01-15] MEDS ORDERED: PROPOFOL 200 MG/20 ML VIAL IV ONE (12:24)
[2018-01-15] MEDS ORDERED: LIDOCAINE 2% MPF 5 ML VIAL ONE (12:24)
[2018-01-15] MEDS ORDERED: FENTANYL CITR 100 MCG/2 ML ONE (12:24)
[2018-01-15] MEDS ORDERED: KETAMINE HCL 500 MG/5 ML VIAL ONE (12:49)
--- NOTE | 2018-01-15 13:07 | P.BOP ---
Preoperative diagnosis: right foot cellulitis, destructive osteomyelitis right second toe Postoperative diagnosis: same Primary procedure: Right second toe amputation Estimated blood loss: <5cc Specimen: toe Findings: toe Anesthesia: MAC Complications: None Drain(s): Other Transferred to: Recovery Room Condition: Good
[2018-01-15] MEDS: METHOCARBAMOL 500 MG TAB PO SCH ×2 (14:00→20:47)
--- NOTE | 2018-01-15 14:15 | P.PN ---
Subjective Date of Service: 01/15/18 Primary Care Provider: Dr Frederick Chief Complaint: Right toe ESBL infection Patient seen and examined at bedside with RN. Chart reviewed. Case discussed with general surgery. Currently patient is NPO awaiting surgical procedure today. No complaints to offer overnight doing well overall this morning as well. Review of Systems 10-point ROS is otherwise unremarkable Physical Examination - Vital Signs Temperature: 97.4 F Blood Pressure: 109/61 Pulse: 107 Respirations: 16 Pulse Ox (%): 98 - Physical Exam General: Alert, In no apparent distress HEENT: Atraumatic, PERRLA, EOMI Neck: Supple, JVD not distended Respiratory: Clear to auscultation bilaterally, Normal air movement Cardiovascular: Regular rate/rhythm, Normal S1 S2 Gastrointestinal: Normal bowel sounds, No tenderness Musculoskeletal: Contractures, Other (Right-sided 2nd toe infected. Purulent discharge noted. Necrotic borders noted as well.) Integumentary: No rashes Neurological: Normal speech, Normal tone, Normal affect Lymphatics: No axilla or inguinal lymphadenopathy - Studies Laboratory Data (last 24 hrs) 01/14/18 16:00: PT 16.4 H, INR 1.39, APTT 40.4 H 01/14/18 16:00: WBC 6.9 D, Hgb 11.8 L, Hct 35.4 L, Plt Count 304 01/14/18 16:00: Sodium 134 L, Potassium 5.6 H*, BUN 30 H, Creatinine 1.60 H, Glucose 71 L, Magnesium 2.5 H, Total Bilirubin 0.3, AST 24, ALT 18, Alkaline Phosphatase 90 Medications List Reviewed: Yes Assessment And Plan - Current Problems (Diagnosis) (1) Right second toe ulcer Onset Date: 01/15/18 Current Visit: Yes Status: Acute Plan: Right 2nd toe ulcer with chronic wound that failed outpt therapy. Wound Culture + for MDR proteus and ECOLI -IV meropenum 1g BID -Gen Surgery consulted. Awaiting surgery at this time for toe amputation -Cardiology consulted for PAD. Medical management at this time -Wound care consulted as well -MRI of the foot to assess for osteomyelitis (2) PAD (peripheral artery disease) Onset Date: 09/21/17 Current Visit: No Status: Chronic Plan: Patient with severe PAD and stent placement in the past -Cardiology consulted appreciated recommendations this time. Medical management noted. (3) Atrial fibrillation Onset Date: 09/21/17 Current Visit: No Status: Chronic Plan: Rate and rhythm is controlled at this time will restart home medication Qualifiers: Atrial fibrillation type: paroxysmal Qualified Code(s): I48.0 - Paroxysmal atrial fibrillation (4) Chronic anticoagulation Onset Date: 09/21/17 Current Visit: No Status: Chronic (5) COPD (chronic obstructive pulmonary disease) Onset Date: 09/21/17 Current Visit: No Status: Chronic Qualifiers: COPD type: chronic bronchitis (6) History of CVA (cerebrovascular accident) Onset Date: 09/21/17 Current Visit: No Status: Chronic (7) Hyperlipidemia Onset Date: 09/21/17 Current Visit: No Status: Chronic Qualifiers: Hyperlipidemia type: unspecified Qualified Code(s): E78.5 - Hyperlipidemia , unspecified (8) Hypertension Onset Date: 09/21/17 Current Visit: No Status: Chronic Qualifiers: Hypertension type: essential hypertension Qualified Code(s): I10 - Essential (primary) hypertension (9) Anemia Onset Date: 09/21/17 Current Visit: No Status: Chronic Qualifiers: Anemia type: iron deficiency Iron deficiency anemia type: unspecified iron deficiency Qualified Code(s): D50.9 - Iron deficiency anemia, unspecified (10) Cachectic Current Visit: No Status: Acute - Plan Currently awaiting a or procedure at this time with general surgery. Will follow up post procedure at this time. Discharge Plan: Home Plan to discharge in: 72 Hours - Code Status/Comfort Care Code Status Assessed: Yes Critical Care: No
[2018-01-15] MEDS ORDERED: TRAZODONE 50 MG TABLET PO PRN (20:22)
[2018-01-15] MEDS: APIXABAN 5 MG TABLET PO SCH (20:46)
[2018-01-15] MEDS ORDERED: ATORVASTATIN 10 MG TAB PO SCH (21:00)
--- NOTE | 2018-01-16 01:05 | OP ---
Date of Procedure: 01/15/2018 Surgeon: Elroy Wheeler MD Preoperative Diagnoses: Right foot cellulitis and destructive osteomyelitis with dislocation of righ t second toe. Postoperative Diagnosis: Right foot cellulitis; and destructive osteomyelitis with dislocation, righ t second toe. Procedure: Right second toe amputations by. Specimen: Toe. Anesthesia: MAC plus local. A digit block. Indications: This is the case of a male, who comes to us with destructive osteomyelitis of right toe . The patient has been receiving wound care. Has not improved. Admitted to the hospital. Surgical consult was obtained for evaluation and surgical debridement. We fully explained to the patient and his daughter, since the patient does not give much information and he has dementia, about these poss ibilities and options that we have in this case. We are going to try to do some debridement and see where that takes us since the area is damaged by the infection. The benefits, alternatives, and risk s were fully explained to the patient and the daughter which include but not limited to infection, bl eeding, damage to adjacent structures, anesthesia complication, nonhealing wound, [place], and even . She also understood this may not relieve any symptoms and he might need more than one surgical inte rvention. She understood and signed consent. Description Of Procedure: The patient was brought to the operating room, placed in supine position. Anesthesia was done without complication. The right foot was prepped and draped in sterile fashion. We cleaned the area of the necrotic tissue. We noticed the bone is sticking out. It is a complete ly exposed, already dislocated from the joint. This is just cannot be safe. So, I went outside and talked to the family who gave me the consent for amputation of the right second toe. A time-out was called once again. We prepped and draped the area in usual sterile fashion again and we proceeded th en to do the amputation of the toe. We found the metacarpophalangeal joint and we transected that ar ea. Circulation there is very minimal. Hemostasis was obtained. The head of the metatarsal bone wa s just excoriated, and it was irrigated. Hemostasis obtained and the area was packed with wet-to-dry dressing. The patient tolerated the procedure well. The patient was sent to recovery in stable con dition. NILESH/EBENEZER Voice ID: [id number] Report ID: [id number]
[2018-01-16 06:54] LABS: Absolute Lymphocytes (CBC) 1.7 K/uL (0.7-4.9); Absolute Monocytes 1.2 K/uL (0.1-1.3); Absolute Neutrophil 3.8 K/uL (1.8-8.0); Basophils % 0.8 % (0-1.3); Eosinophils % 5.7 % (0-4.4); Lymphocytes % 23.6 % (15.3-44.8); MCH 29.3 pg (27.0-35.0); MCV 86.1 fL (80-100); MPV 8.9 fL (7.6-11.3); RBC Red Blood Cell Count 3.95 M/uL (4.33-5.43)
[2018-01-16 06:58] LABS: Protime INR 1.31
[2018-01-16 07:00] LABS: Monocytes % 16.6 % (3.3-12.3)
[2018-01-16 07:04] LABS: Albumin 3.3 g/dL (3.4-5.0); Bilirubin Total 0.4 mg/dL (0.2-1.0); Potassium 4.6 mmol/L (3.5-5.1); Protein, Total 7.6 g/dL (6.4-8.2)
[2018-01-16] MEDS: INSULIN -REGULAR HUMAN 50 UNIT/0.5 ML ML SQ SCH ×2 (07:30→11:30)
[2018-01-16] MEDS ORDERED: ASPIRIN 81 MG CHEWABLE TABLET PO SCH (09:00)
[2018-01-16] MEDS ORDERED: FAMOTIDINE 20 MG TAB PO SCH (09:00)
[2018-01-16] MEDS ORDERED: SENOSIDES 8.6 MG TAB PO SCH (09:00)
[2018-01-16] MEDS: Meropenem 1,000 MG in NA CHLORIDE 0.9% 100 ML IV SCH (09:58)
[2018-01-16] MEDS: APIXABAN 5 MG TABLET PO SCH (09:58)
[2018-01-16] MEDS: METHOCARBAMOL 500 MG TAB PO SCH (09:58)
--- NOTE | 2018-01-17 07:01 | CON ---
Date of Consultation: 01/15/2018 Reason For Consultation: Peripheral arterial disease. History Of Present Illness: Mr. Espinal is a 77-year-old male. He was admitted with cellulitis on 01/14/2018. His cellulitis was in the right foot. He was sent to the hospital by Dr. Moore for th at. He has a history of coronary artery disease, peripheral vascular disease. He has a history of m oderate renal insufficiency, has a history of atrial fibrillation, COPD, dementia, hemiplegia, and lim d a TIA before. He is on Eliquis for his atrial fibrillation. Arterial Doppler showed chronic occlu arsenio of the right SFA. The patient is improving on medical therapy. Past Medical History: As stated above. Allergies: NONE. Review of Systems: Negative. Social History: Negative. Family History: Noncontributory. Medications: Eliquis, aspirin, Pepcid, Zosyn, and Toprol. Physical Examination: Vital Signs: Stable, afebrile, atrial fibrillation rate of 84. HEENT: Negative. Neck: Supple. No bruit. Chest: Clear. Cardiac: Atrial fibrillation. No murmurs, gallops, or rubs. Abdomen: Benign. Extremities: No clubbing, cyanosis, or edema. Had cellulitis in the right foot. Diagnostic Data: As stated earlier. Impression And Plan: Peripheral vascular disease, chronic occlusion of the SFA on the right side nelsy ng treated medically. I think he needs to be with the family to continue medical treatment, he is al ready on aspirin and Eliquis. Certainly adding Trental or Pletal may be adequate. He does not have congestive heart failure and he could certainly get Pletal and see if that would improve it. If symp toms do not improve and he continues to have issues with it, then we will consider doing an abdominal angiogram with runoff. He may be a candidate for bypass surgery on his right leg that ju dging by the Doppler. He is not a candidate for angioplasty or stent in that department. His other problems including COPD, dementia, atrial fibrillation, dyslipidemia seem to be stable at this point. history of stroke with hemiplegia and dementia, all others are stable. I will discuss t he case further with Dr. Wang. He can go home and I will see him in the office as an outpatient. IMELDA/EBENEZER Voice ID: [id number] Report ID: [id number]
--- NOTE | 2018-01-18 07:00 | EKG ---
Test Date: 2018-01-16 Test Time: 07:42:57 Water Safety Teacher: ALEX MEASUREMENT RESULTS: Intervals: Rate: 92 MA: 200 QRSD: 112 QT: 402 QTc: 497 Formoso: P: 87 MA: 200 QRS: 46 T: 71 INTERPRETIVE STATEMENTS: Sinus rhythm with premature atrial complexes with aberrant conduction Left ventricular hypertrophy with repolarization abnormality Cannot rule out Inferior infarct, age undetermined Abnormal ECG Compared to ECG 01/14/2018 16:07:00 Atrial premature complex(es) now present Aberrant conduction of supraventricular beat(s) now present Left ventricular hypertrophy now present Early repolarization now present Ventricular premature complex(es) no longer present Myocardial infarct finding still present Electronically Signed On 01-18-18 06:55:38 CDT by Oskar Dorantes
== END 2018-01-16 14:50 | disposition home health service (06) | DRG 504 ==
LOC: ER 15:14 → ERHOLD 17:04 → 4TH 19:19
PROVIDERS: ADMIT Family Medicine; ATTEND Family Medicine
PROC: 0Y6R0Z0 Detachment at Right 2nd Toe, Complete, Open Approach (ICD-10-PCS; principal; 2018-01-15 11:30)
DX: M86.171 Other acute osteomyelitis, right ankle and foot (principal); L03.115 Cellulitis of right lower limb; R64 Cachexia; I73.9 Peripheral vascular disease, unspecified; I77.1 Stricture of artery; I25.10 Atherosclerotic heart disease of native coronary artery without angina pectoris; I48.0 Paroxysmal atrial fibrillation; J44.9 Chronic obstructive pulmonary disease, unspecified; E78.5 Hyperlipidemia, unspecified; I10 Essential (primary) hypertension; D50.9 Iron deficiency anemia, unspecified; Z68.20 Body mass index [BMI] 20.0-20.9, adult; Z79.01 Long term (current) use of anticoagulants; Z86.73 Personal history of transient ischemic attack (TIA), and cerebral infarction without residual deficits
CPT/HCPCS: 36415; 71045; 80048; 80053; 80076; 81003; 82550; 82553; 82962; 83735; 83880; 84100; 84484; 85025; 85610; 85652; 85730; 87040; 87077; 87086; 87088; 87186; 88305; 88311; 93005; 93926; 94640; 96361; 96365; 96366; 96375; 99285; J2250; J2270; J3010; J3370; J7030

== ENCOUNTER 2018-02-20 11:58 | Emergency (ER) | payer OTHER ==
--- OUTSIDE RECORDS SUMMARY | 2018-02-20 12:01 | XMS REPORT | Continuity of Care Document ---
:1940 Author Organization Interface Problems Problem Status Onset Classification Date Comments Source Date Reported Clostridium Active Problem 10/16/2017 Problem [facility] difficile<sup>1 8 added by Medical , 2</sup> Discern Center Expert. SEPSIS Active [facility] 8 [facility] Medications Medication Details Route Status Patient Ordering Order Source Instructions Provider Date Famotidine 10 10 mg=1 tab, Active [place] MG Oral Tablet PO, BID, # 60 2018 Medical tab, 0 Center Refill(s), Pharmacy: [facility] [id number] memantine 5 mg 5 mg=1 tab, PO, Active [facility] oral tablet BID, # 60 tab, 2018 Medical 0 Refill(s), [place] [facility]: [facility] [id number] vancomycin 250 125 mg=2.5 mL, Active [place] mg/5 mL oral PO, ABXQ6H, # 2018 Medical solution 70 mL, 0 Center Refill(s), other apixaban 5 mg 5 mg, PO, Q12H, Active [facility] oral tablet # 60 tab, 0 2018 Medical Refill(s), [place] [facility] [id number] atorvastatin 10 10 mg=1 tab, Active [place] mg oral tablet PO, Bedtime, # 2018 Medical 30 tab, 0 Center Refill(s), [facility] [id number] Docusate Sodium 100 mg=1 cap, Active [place] 100 MG Oral PO, BID, # 60 2018 Medical Capsule cap, 0 Center [Colace] Refill(s), [facility] [id number] Vancomycin 125 mg=2.5 mL, Inactive [place] PO, ABXQ6H, 0 2018 Medical Refill(s) [place] Potassium 40 mEq, 2 tab, Inactive [facility] Chloride Route: PO, Drug 2018 Medical form: ERTAB, [place] BID, Dosing Weight 57.38, kg, Start date: [...] Patients with feeding tube less than 14 Serbian (Dobhoff, J-tube etc) and pediatric and patients. With food and full glass of water atorvastatin 10 mg, 1 tab, No Longer [place] Route: PO, Drug Active 2017 Medical form: TAB, [place] Bedtime, kg, Start date: 10/11/17 21:00:00 CDT, Duration: 30 day, Stop date: 11/09/17 21:00:00 CDTNotes: (Same As: Lipitor) vancomycin 500 mg, Route: No Longer [place] IVPB, Drug Active 2017 Medical form: PDR/INJ, Center [id number], Start date: 10/11/17 17:00:00 CDT, Duration: 30 day, Stop date: 11/10/17 5:00:00 CDT, ABX Indication: Bone/Joint InfectionNotes: TIME CRITICAL MEDICATION (Same As: Vancocin) For adult patients only: Round to nearest 250 mg per Medical Staff approval Memantine 5 mg, 1 tab, No Longer [place] Route: PO, Drug Active 2017 Medical form: [...] MG 81 mg, 1 tab, No Longer [place] Enteric Coated Route: PO, Drug Active 2017 Medical Tablet form: ECTAB, Center Daily, kg, Start date: 10/11/17 9:00:00 CDT, Duration: 30 day, Stop date: 11/09/17 9:00:00 CDTNotes: Do not crush or chew. (Same As: Ecotrin) apixaban 5 mg, 1 tab, No Longer [place] Route: PO, Drug Active 2017 Medical form: TAB, Center Q12H, kg, Start date: 10/11/17 9:00:00 CDT, Duration: 30 day, Stop date: 11/09/17 21:00:00 CDTNotes: Same as: Eliquis Docusate 100 mg, 1 cap, No Longer [facility] Route: PO, Drug Active 2017 Medical form: CAP, BID, Center kg, Start date: 10/11/17 9:00:00 CDT, Duration: 30 day, Stop date: 11/09/17 17:00:00 CDTNotes: (Same as: Colace) (Do Not Crush) Flagyl 500 mg, 1 tab, No Longer [facility] Route: PO, Drug Active 2017 Medical form: TAB, Q8H, Center kg, Start date: 10/11/17 8:00:00 CDT, Duration: 30 day, Stop date: 11/10/17 0:00:00 CDT, ABX Indication: Infectious DiarrheaNotes: (Same as: Flagyl) Take with food/ avoid alcohol Albuterol 0.833 3 mL, Route: No Longer [place] MG/ML / INHALATION, Active 2017 Medical Ipratropium Drug Form: [place] 0.167 SOLN, kg, RQID, MG/ML Inhalant Start [...] 0:55:00 CDT Vancomycin 1.25 gm, Route: Inactive [place] IVPB, ONCE, kg, 2018 Medical Start date: [place] 10/11/17 0:45:00 CDT, Stop date: 10/11/17 0:45:00 CDT, ABX Indication: Bone/Joint InfectionNotes: TIME CRITICAL MEDICATION (Same As: Vancocin) Infusion rate 2001 mg: infuse over 2.5 hours For adult patients only: Round to nearest 250 mg per Medical Staff approval MEDICATION WASTE Product Size: 1000 mg Product Wasted: ___ mg Vancomycin 125 mg, 2.5 mL, No Longer [place] Route: PO, Drug Active 2018 Medical form: YAMILET [place] ABXQ6H, kg, Start date: 10/10/17 23:00:00 CDT, [...] g 1 gm, IV, Q24H, No Longer [facility] intravenous # 10 doses or Active 2018 Medical injection times, 0 Center Refill(s) metoprolol 12.5 mg=0.5 No Longer [facility] tartrate 25 mg tab, PO, BID, # Active 2018 Medical oral tablet 180 tab, 0 Center Refill(s) memantine 5 mg 5 mg=1 tab, PO, No Longer [facility] oral tablet BID, # 60 tab, Active 2018 Medical 0 Refill(s) Center Metronidazole 500 mg=1 tab, No Longer [place] 500 MG Oral PO, Q8H, # 30 Active 2018 Medical Tablet [Flagyl] tab, 0 Center Refill(s) Famotidine 10 10 mg=1 tab, No Longer [facility] MG Oral Tablet PO, BID, # 180 Active 2018 Medical tab, 0 Center Refill(s) Albuterol 0.833 3 ml, No Longer [place] MG/ML / INHALATION, Active 2018 Medical Ipratropium QID, # 30 ea, 0 Center [place] 0.167 Refill(s) MG/ML Inhalant Solution [DuoNeb] Docusate Sodium 100 mg=1 cap, No Longer [place] 100 MG Oral PO, BID, # 60 Active 2017 Medical Capsule cap, 0 Center [Colace] Refill(s) atorvastatin 10 10 mg=1 tab, No Longer [facility] mg oral tablet PO, Bedtime, # Active 2018 Medical 30 tab, 0 Center Refill(s) Aspirin 81 MG 81 mg=1 tab, Active [facility] Enteric Coated PO, Daily, # 90 2018 Medical Tablet tab, 3 Center Refill(s) apixaban 5 mg 5 mg, PO, Q12H, No Longer [facility] oral tablet 0 Refill(s) Active 2018 Medical Center Ondansetron 4 mg, 2 mL, No Longer [place] Route: IVP, Active 2017 Medical Drug form: INJ, Center Q6H, kg, PRN Nausea & Vomiting, Start date: 10/10/17 21:02:00 CDT, Duration: 30 day, Stop date: 11/09/17 21:01:00 CDTNotes: (Same as: Zofran) MEDICATION WASTE Product Size: 4 mg Product Wasted: ___ mg Acetaminophen 650 mg, 2 tab, No Longer [facility] Route: PO, Drug Active 2017 Medical form: TAB, Q4H, Center kg, PRN Pain 1-3/Temp > 100.4 F, Start date: 10/10/17 21:02:00 CDT, Duration: 30 day, Stop date: 11/09/17 21:01:00 CDTNotes: Do not exceed 4 gm/day. (Same as: Tylenol) Allergies, Adverse Reactions, Alerts Substance Category Reaction Severity Reaction Status Date Comments Source type Reported Immunizations Immunization Date Given Site Status Last Comments Source Updated pneumococcal 10/13/2017 Left completed [facility] Results Order Name Results Value Reference Date Interpretation Comments Source Range ELECTROLYTES Sodium Lvl 139 meq/L 135 - 145 10/[address] ELECTROLYTES Glucose Lvl 81 mg/dL 70 - 99 10/[address] ELECTROLYTES BUN 13 mg/dL 7 - 22 10/[address] ELECTROLYTES Creatinine 0.71 0.50 - 10/13 [facility] Lvl mg/dL [address] [place] [address] ELECTROLYTES eGFR 89 10/13 Result Comment: The eGFR is calculated using the CKD-EPI formula. In most young, healthy individuals the eGFR will be > 90 mL/min/1.73m2. The eGFR declines with age. An eGFR of 60-89 may be normal in [facility] mL/min/1. some populations, particularly the elderly, for whom the CKD-EPI formula has not been extensively validated. Use of the eGFR is not recommended in the following populations: [address] Individuals with unstable creatinine concentrations, including [...] Lvl 8.4 mg/dL 8.5 - 10.5 10/[address] ELECTROLYTES Potassium Lvl 3.2 meq/L 3.5 - 5.1 10/[address] ELECTROLYTES Chloride Lvl 105 meq/L 95 - 109 10/[address] ELECTROLYTES CO2 23 meq/L 24 - 32 10/[address] ELECTROLYTES AGAP 14.2 10.0 - 10/13 [facility] meq/L 20.[address] [place] [address] HEMATOLOGY Basophils # 0.1 K/CMM 0.0 - 0.2 10/[address] HEMATOLOGY Eosinophils 2.9 % 0.0 - 4.0 10/[address] HEMATOLOGY Segs-Bands # 6.3 K/CMM 1.5 - 8.1 10/[address] HEMATOLOGY Monocytes # 1.3 K/CMM 0.0 - 0.8 10/[address] HEMATOLOGY Lymphocytes # 2.4 K/CMM 1.0 - 5.5 10/13 2017 [facility] HEMATOLOGY Eosinophils # 0.3 K/CMM 0.0 - 0.5 10/13 [facility] HEMATOLOGY Lymphocytes 23.4 % 20.0 - 10/13 [facility] 40.0 [facility] HEMATOLOGY Segs 60.4 % 45.0 - 10/13 [place] 75.0 [facility] HEMATOLOGY Monocytes 12.8 % 2.0 - 12.0 10/13 [facility] HEMATOLOGY Basophils 0.5 % 0.0 - 1.0 10/13 [facility] HEMATOLOGY RBC 3.31 4.70 - 10/13 [facility] 6.10 [facility] HEMATOLOGY Hct 27.8 % 42.0 - 10/13 [facility] 54.0 [facility] HEMATOLOGY Hgb 9.2 g/dL 14.0 - 10/13 [facility] 18.0 [facility] HEMATOLOGY MCH 27.8 pg 27.0 - 10/13 [facility] 31.0 [facility] HEMATOLOGY MCV 84.2 fL 80.0 - 10/13 [facility] 94.0 [facility] HEMATOLOGY MCHC 32.9 g/dL 32.0 - 10/13 [facility] 36.0 [facility] HEMATOLOGY Platelet 300 K/CMM 133 - 450 10/13 [facility]2017 [facility] HEMATOLOGY RDW 18.3 % 11.5 - 10/13 [facility] 14.5 [facility] HEMATOLOGY MPV 7.8 fL 7.4 - 10.4 10/13 [facility] HEMATOLOGY WBC 10.4 3.7 - 10.4 10/13 [facility] K/CMM [facility] CHEM PANEL eGFR 83 10/12 Result Comment: The eGFR is calculated using the CKD-EPI formula. In most young, healthy individuals the eGFR will be >90 mL/ min/1.73m2. The eGFR declines with age. An eGFR of 60-89 may be normal in [facility] mL/min/1. some populations, particularly the elderly, for whom the CKD-EPI formula has not been extensively validated. Use of the eGFR is not recommended in the following populations: [place] [address] Center Individuals with unstable creatinine concentrations, including [...] Lvl 81 mg/dL 70 - 99 10/[address] CHEM PANEL Bili Total 0.5 mg/dL 0.2 - 1.3 10/[address] CHEM PANEL Alk Phos 51 unit/L 39 - 136 10/[address] CHEM PANEL AST 18 unit/L 0 - 37 10/[address] CHEM PANEL ALT 14 unit/L 0 - 65 10/[address] CHEM PANEL Albumin Lvl 2.0 g/dL 3.5 - 5.0 10/[address] CHEM PANEL Total Protein 6.0 g/dL 6.4 - 8.4 10/[address] CHEM PANEL Calcium Lvl 8.2 mg/dL 8.5 - 10.5 10/[address] CHEM PANEL CO2 23 meq/L 24 - 32 10/[address] CHEM PANEL Chloride Lvl 107 meq/L 95 - 109 10/[address] CHEM PANEL Potassium Lvl 3.4 meq/L 3.5 - 5.1 10/[address] CHEM PANEL Sodium Lvl 140 meq/L 135 - 145 10/[address] CHEM PANEL Creatinine 0.84 0.50 - 10/12 [facility] Lvl mg/dL 1.40 [facility] CHEM PANEL BUN 14 mg/dL 7 - 22 10/[address] CHEM PANEL A/G Ratio 0.5 0.7 - 1.6 10/[address] CHEM PANEL Globulin 4.0 g/dL 2.7 - 4.2 10/[address] CHEM PANEL B/C Ratio 17 6 - 25 10/[address] CHEM PANEL AGAP 13.4 10.0 - 10/12 [facility] meq/L 20.0 [facility] CHEM PANEL Magnesium Lvl 1.9 mg/dL 1.8 - 2.4 10/[address] CHEM PANEL Ammonia 52.0 <=45.0 10/12 [facility] umol/L uMol/L /2017 [facility] HEMATOLOGY Hct 26.2 % 42.0 - 10/12 54.0 [facility] HEMATOLOGY Hgb 8.6 g/dL 14.0 - 10/12 [facility] 18.0 [facility] HEMATOLOGY MCHC 33.0 g/dL 32.0 - 10/12 [facility] 36.0 [facility] HEMATOLOGY MCH 27.4 pg 27.0 - 10/12 [facility] 31.0 [facility] HEMATOLOGY MCV 83.3 fL 80.0 - 10/12 [facility] 94.0 [facility] HEMATOLOGY RDW 18.3 % 11.5 - 10/12 [facility] 14.5 [facility] HEMATOLOGY MPV 7.7 fL 7.4 - 10.4 10/[address] HEMATOLOGY Platelet 294 K/CMM 133 - 450 10/[address] HEMATOLOGY RBC 3.15 4.70 - 10/12 [facility] M/CMM 6.10 [facility] HEMATOLOGY WBC 10.9 3.7 - 10.4 10/12 [facility] K/CMM [facility] HEMATOLOGY Eosinophils # 0.3 K/CMM 0.0 - 0.5 10/[address] HEMATOLOGY Monocytes # 1.3 K/CMM 0.0 - 0.8 10/[address] HEMATOLOGY Lymphocytes # 2.0 K/CMM 1.0 - 5.5 10/[address] HEMATOLOGY Basophils # 0.1 K/CMM 0.0 - 0.2 10/[address] [place] [address] HEMATOLOGY Segs 66.2 % 45.0 - 10/12 [facility] 75.0 [facility] HEMATOLOGY Lymphocytes 18.0 % 20.0 - 10/12 [facility] 40.0 [facility] HEMATOLOGY Eosinophils 2.8 % 0.0 - 4.0 10/[address] HEMATOLOGY Monocytes 12.4 % 2.0 - 12.0 10/[address] HEMATOLOGY Segs-Bands # 7.2 K/CMM 1.5 - 8.1 10/[address] HEMATOLOGY Basophils 0.6 % 0.0 - 1.0 10/[address] CHEM PANEL Lactic Acid 0.8 0.5 - 2.2 10/11 [facility] Lvl mMol/L [facility] CHEM PANEL Procalcitonin 0.73 0.00 - 10/11 [facility] Lvl ng/mL 0.10 [facility] HEMATOLOGY Sed Rate 45 mm/h 0 - 15 10/[address] IMMUNOLOGY C-REACTIVE 132.0 <=2.9 mg/L 10/11 [facility] PROTEIN mg/L [facility] MOLECULAR C difficile Positive 1 Negative 10/11 Result [facility] DIAGNOSTIC Comment: Medical *ABN* "Significant Center Findings (10/11/17 12:26 AM) called to Augie Bautista at 10/11/2017 08:17 by DO. Read Back OK." CHEM PANEL Phosphorus 3.3 mg/dL 2.5 - 4.5 10/11 [facility]2017 [facility] CHEM PANEL Magnesium Lvl 1.9 mg/dL 1.8 - 2.4 10/[address] CHEM PANEL eGFR 73 10/11 Result Comment: The eGFR is calculated using the CKD-EPI formula. In most young, healthy individuals the eGFR will be >90 mL/ min/1.73m2. The eGFR declines with age. An eGFR of 60-89 may be normal in [facility] mL/min/1 some populations, particularly the elderly, for whom the CKD-EPI formula has not been extensively validated. Use of the eGFR is not recommended in the following populations: [address] Individuals with unstable creatinine concentrations, including [...] AST 18 unit/L 0 - 37 10/11 [facility] CHEM PANEL Alk Phos 56 unit/L 39 - 136 10/[address] CHEM PANEL Bili Total 0.5 mg/dL 0.2 - 1.3 10/[address] CHEM PANEL Total Protein 6.4 g/dL 6.4 - 8.4 10/[address] CHEM PANEL ALT 16 unit/L 0 - 65 10/[address] CHEM PANEL Chloride Lvl 105 meq/L 95 - 109 10/[address] CHEM PANEL Potassium Lvl 3.8 meq/L 3.5 - 5.1 10/[address] CHEM PANEL Albumin Lvl 2.3 g/dL 3.5 - 5.0 10/[address] CHEM PANEL Calcium Lvl 8.5 mg/dL 8.5 - 10.5 10/[address] CHEM PANEL CO2 25 meq/L 24 - 32 10/[address] CHEM PANEL Sodium Lvl 138 meq/L 135 - 145 10/[address] CHEM PANEL Creatinine 0.98 0.50 - 10/11 [facility] Lvl mg/dL 1.40 [facility] CHEM PANEL BUN 20 mg/dL 7 - 22 10/[address] CHEM PANEL Glucose Lvl 103 mg/dL 70 - 99 10/[address] CHEM PANEL A/G Ratio 0.6 0.7 - 1.6 10/[address] CHEM PANEL AGAP 11.8 10.0 - 10/11 [facility] meq/L 20.0 [facility] CHEM PANEL B/C Ratio 20 6 - 25 10/[address] CHEM PANEL Globulin 4.1 g/dL 2.7 - 4.2 10/[address] HEMATOLOGY Basophils 0.5 % 0.0 - 1.0 10/[address] HEMATOLOGY Segs-Bands # 17.5 1.5 - 8.1 10/11 [facility] /[address] [place] [address] HEMATOLOGY Eosinophils 0.5 % 0.0 - 4.0 10/[address] HEMATOLOGY Lymphocytes 8.5 % 20.0 - 10/11 [facility] [address] [place] [address] HEMATOLOGY Basophils # 0.1 K/CMM 0.0 - 0.2 10/[address] HEMATOLOGY Lymphocytes # 1.8 K/CMM 1.0 - 5.5 10/[address] HEMATOLOGY Monocytes 8.3 % 2.0 - 12.0 10/[address] HEMATOLOGY Monocytes # 1.8 K/CMM 0.0 - 0.8 10/11 [facility] HEMATOLOGY Eosinophils # 0.1 K/CMM 0.0 - 0.5 10/11 [facility] HEMATOLOGY Segs 82.2 % 45.0 - 10/11 [facility] 75.0 [facility] HEMATOLOGY Platelet 318 K/CMM 133 - 450 10/11 [facility] HEMATOLOGY MPV 7.3 fL 7.4 - 10.4 10/11 [facility] HEMATOLOGY WBC 21.3 3.7 - 10.4 10/11 [facility] K/CMM /2017 [facility] HEMATOLOGY RDW 18.6 % 11.5 - 10/11 [facility] 14.5 [facility] HEMATOLOGY Hct 27.6 % 42.0 - 10/11 [facility] 54.0 [facility] HEMATOLOGY Hgb 9.0 g/dL 14.0 - 10/11 [facility] 18.0 [facility] HEMATOLOGY RBC 3.31 4.70 - 10/11 [facility] 6.10 [facility] HEMATOLOGY MCV 83.3 fL 80.0 - 10/11 [facility] 94.0 [facility] HEMATOLOGY MCH 27.2 pg 27.0 - 10/11 [facility] 31.0 [facility] HEMATOLOGY MCHC 32.7 g/dL 32.0 - 10/11 [facility] 36.0 [facility] Vital Signs Vital Sign Value Date Comments Source Systolic (mm Hg) 163 10/13/2017 [facility] Diastolic (mm Hg) 73 10/13/2017 [facility] Temperature Oral (F) 97.4 F 10/13/2017 [facility] Heart Rate 74 10/13/2017 [facility] Systolic (mm Hg) 172 10/13/2017 [facility] Diastolic (mm Hg) 71 10/13/2017 [facility] Respitory Rate 20 10/13/2017 [facility] Respitory Rate 18 10/13/2017 [facility] Temperature Oral (F) 97.2 F 10/13/2017 [facility] Heart Rate 62 10/13/2017 [facility] Systolic (mm Hg) 163 10/13/2017 [facility] Diastolic (mm Hg) 80 10/13/2017 [facility] Heart Rate 83 10/13/2017 [facility] Temperature Oral (F) 97.4 F 10/13/2017 [facility] Respitory Rate 18 10/13/2017 [facility] Height 175.2 cm 10/11/2017 [facility] Weight 57.38 10/11/2017 [facility] Height 175.2 cm 10/11/2017 [facility] Weight 57.38 10/11/2017 [facility] BMI Calculated 18.69 10/11/2017 [facility] Encounters Location Location Encounter Encounter Reason Attending ADM DC Status Source Details Type Number For Provider Date Date Visit [facility] [id number] Non 10/10 10/13 [facility] William Physician /2017 [facility] Procedures Procedure Code Date Perfomer Comments Source
--- NOTE | 2018-02-20 13:00 | RAD REPORT ---
EXAM DESCRIPTION: Vinod Single View02/20/2018 12:53 pm CLINICAL HISTORY: Shortness of breath/hypotension COMPARISON: December 2017 FINDINGS: The lungs appear clear of acute infiltrate. The heart is mildly to moderately enlarged. A yomaira is tortuous/ectatic IMPRESSION: No acute abnormalities displayed
[2018-02-20 13:05] LABS: Absolute Lymphocytes (CBC) 1.9 K/uL (0.7-4.9); Absolute Monocytes 1.1 K/uL (0.1-1.3); Basophils % 0.7 % (0-1.3); Eosinophils % 2.5 % (0-4.4); Hematocrit 32.9 % (39.6-49.0); Lymphocytes % 25.8 % (15.3-44.8); MCH 28.8 pg (27.0-35.0); MCV 85.9 fL (80-100); MPV 8.4 fL (7.6-11.3); Monocytes % 15.6 % (3.3-12.3); Protime INR 1.54; RBC Red Blood Cell Count 3.83 M/uL (4.33-5.43)
[2018-02-20 13:25] LABS: Blood Morphology Comment NOT SEEN (NOT SEEN); Platelet Estimate ADEQ; Platelets, Giant FEW; Urine White Blood Cell Casts OK
[2018-02-20 13:28] LABS: Albumin 3.1 g/dL (3.4-5.0); Bilirubin Direct 0.1 mg/dL (0-0.2); Bilirubin Total 0.3 mg/dL (0.2-1.0); Potassium 5.5 mmol/L (3.5-5.1); Protein, Total 7.2 g/dL (6.4-8.2); Troponin (Emerg Dept Use Only) 0.02 ng/mL (0.0-0.045)
[2018-02-20 13:44] LABS: Urine Blood TRACE (NEG); Urine Glucose NEGATIVE (NEG); Urine Protein NEGATIVE (NEG)
[2018-02-20 13:47] LABS: Urine Bacteria 20-50 /HPF (NONE SEEN); Urine Culture Reflex Order REFLEXED; Urine Mucus SLIGHT /HPF (NONE SEEN); Urine RBC <5 /HPF (NONE SEEN)
[2018-02-20] MEDS ORDERED: D50W 25 GM/50 ML SYRINGE IV ONE ×2 (14:43→17:26)
[2018-02-20] MEDS ORDERED: ALBUTEROL 2.5 MG/3 ML NEB SOL ONE (14:43)
[2018-02-20] MEDS ORDERED: INSULIN -REGULAR HUMAN 50 UNIT/0.5 ML ML ONE (14:43)
[2018-02-20 17:13] LABS: Potassium 4.4 mmol/L (3.5-5.1)
--- NOTE | 2018-02-20 17:48 | EDPHYS ---
Physician Documentation [facility] Name: Amari Espinal Sr Age: 77 yrs Sex: Male : 1940 Arrival Date: 02/20/2018 Time: 12:02 Bed 18 Private MD: Steve Frederick T ED Physician Quan Granado HPI: 02/20 13:54 This 77 yrs old Male presents to ER via Wheelchair with complaints of Blood jr8 Pressure Problem. 13:54 Patient came in at families request because he has been having low blood pressure and jr8 complaining of being lightheaded for the past couple of weeks. No recent medication change. Denies any other symptoms . Onset: The symptoms/episode began/occurred gradually, 2 week(s) ago. Severity of symptoms: At their worst the symptoms were moderate in the emergency department the symptoms are unchanged. The patient has not experienced similar symptoms in the past. The patient has not recently seen a physician. Historical: - Allergies: 12:09 No Known Allergies; aj1 - Home Meds: 12:09 Eliquis 5 mg Oral tab 1 tab 2 times per day [Active]; famotidine 20 mg Oral tab 1 tab aj1 once daily [Active]; methocarbamol 500 mg Oral tab 1 tabs three times a day [Active]; senna 8.6 mg Oral tab 1 tabs once daily [Active]; Multiple Vitamins Oral tab 1 tab daily [Active]; aspirin 81 mg Oral chew 1 tab once daily [Active]; atorvastatin 10 mg Oral tab 1 tab nightly [Active]; - PMHx: 12:09 Atrial Fib; COPD; Dementia; hemiplagia affecting left side; Hyperlipidemia; PVD; TIA; aj1 - Immunization history:: Flu vaccine is not up to date. - Social history:: Smoking status: Patient/guardian denies using tobacco. - Ebola Screening: : Patient denies travel to an Ebola-affected area in the 21 days before illness onset. ROS: 13:54 Eyes: Negative for injury, pain, redness, and discharge, ENT: Negative for injury, jr8 pain, and discharge, Neck: Negative for injury, pain, and swelling, Cardiovascular: Negative for chest pain, palpitations, and edema, Respiratory: Negative for shortness of breath, cough, wheezing, and pleuritic chest pain, Abdomen/GI: Negative for abdominal pain, nausea, vomiting, diarrhea, and constipation, Back: Negative for injury and pain, MS/Extremity: Negative for injury and deformity, Skin: Negative for injury, rash, and discoloration. 13:54 Neuro: Positive for dizziness. Exam: 13:54 Eyes: Pupils equal round and reactive to light, extra-ocular motions intact. Lids and jr8 lashes normal. Conjunctiva and sclera are non-icteric and not injected. Cornea within normal limits. Periorbital areas with no swelling, redness, or edema. ENT: Nares patent. No nasal discharge, no septal abnormalities noted. Tympanic membranes are normal and external auditory canals are clear. Oropharynx with no redness, swelling, or masses, exudates, or evidence of obstruction, uvula midline. Mucous membranes moist. Neck: Trachea midline, no thyromegaly or masses palpated, and no cervical lymphadenopathy. Supple, full range of motion without nuchal rigidity, or vertebral point tenderness. No Meningismus. Cardiovascular: Regular rate and rhythm with a normal S1 and S2. No gallops, murmurs, or rubs. Normal PMI, no JVD. No pulse deficits. Respiratory: Lungs have equal breath sounds bilaterally, clear to auscultation and percussion. No rales, rhonchi or wheezes noted. No increased work of breathing, no retractions or nasal flaring. Abdomen/GI: Soft, non-tender, with normal bowel sounds. No distension or tympany. No guarding or rebound. No evidence of tenderness throughout. Back: No spinal tenderness. No costovertebral tenderness. Full range of motion. Skin: Warm, dry with normal turgor. Normal color with no rashes, no lesions, and no evidence of cellulitis. MS/ Extremity: Pulses equal, no cyanosis. Neurovascular intact. Full, normal range of motion. Neuro: Awake and alert, GCS 15, oriented to person, place, time, and situation. Cranial nerves II-XII grossly intact. Motor strength 5/5 in all extremities. Sensory grossly intact. 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 7 in. (170.18 cm) (R); Pain 0/10; 12:45 BP 111 / 72; Pulse 81; Resp 18; Pulse Ox 98% on R/A; ph 13:15 BP 142 / 82; Pulse 82; Resp 18; Pulse Ox 99% on R/A; ph 13:45 BP 148 / 82; Pulse 80; Resp 16; Pulse Ox 99% on R/A; ph 14:30 BP 156 / 81; Pulse 92; Resp 16; Pulse Ox 98% on R/A; ph 15:00 BP 165 / 82; Pulse 90; Resp 18; Pulse Ox 98% on R/A; ph 15:35 BP 156 / 84; Pulse 84; Resp 18; Pulse Ox 99% on R/A; ph 16:44 BP 158 / 76; Pulse 78; Resp 18; Pulse Ox 98% on R/A; ph 17:40 BP 173 / 83; Pulse 82; Resp 18; Temp 97.8; Pulse Ox 99% on R/A; ph 12:09 Body Mass Index 21.14 (61.23 kg, 170.18 cm) aj1 MDM: 12:18 Patient medically screened. jr8 17:44 Data reviewed: vital signs, nurses notes, lab test result(s), EKG, radiologic studies, jr8 plain films. Data interpreted: Pulse oximetry: on room air is 98 %. Interpretation: normal. 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 Response to treatment: the patient's symptoms have markedly improved after treatment. 02/20 12:35 Order name: Basic Metabolic Panel; Complete Time: 13:35 8 02/20 12:35 Order name: Blood Culture Adult (2) [email or web address]] 02/20 12:35 Order name: CBC with Diff; Complete Time: 13:28 8 02/20 12:35 Order name: CPK; Complete Time: 13:35 8 02/20 12:35 Order name: Lactate; Complete Time: 13:24 8 02/20 12:35 Order name: LFT's; Complete Time: 13:35 8 02/20 12:35 Order name: Procalcitonin; Complete Time: 13:36 8 02/20 12:35 Order name: Protime (+inr); Complete Time: 13:09 8 02/20 12:35 Order name: Troponin (emerg Dept Use Only); Complete Time: 13:35 8 02/20 12:35 Order name: Urine Microscopic Only; Complete Time: 13:47 8 02/20 13:08 Order name: CBC Smear Scan; Complete Time: 13:28 EDIL 02/20 13:39 Order name: Urine Dipstick--Ancillary (enter results); Complete Time: 13:47 bd 02/20 13:49 Order name: Urine Culture EDIL 02/20 16:19 Order name: BMP; Complete Time: 17:15 ph 02/20 12:35 Order name: Cath; Complete Time: 13:30 8 02/20 12:35 Order name: Chest Single View XRAY; Complete Time: 13:03 [facility] [[email or web address]] 02/20 12:35 Order name: Accucheck; Complete Time: 12:53 8 02/20 12:35 Order name: Cardiac monitoring; Complete Time: 12:53 8 02/20 12:35 Order name: EKG - Nurse/Tech; Complete Time: 14:51 8 02/20 12:35 Order name: IV Saline Lock - Large Bore; Complete Time: 12:53 8 02/20 12:35 Order name: Labs collected and sent; Complete Time: 12:53 8 02/20 12:35 Order name: O2 Per Protocol; Complete Time: 12:53 8 02/20 12:35 Order name: O2 Sat Monitoring; Complete Time: 12:53 8 02/20 12:35 Order name: Urine Dipstick-Ancillary (obtain specimen); Complete Time: 13:30 jr Administered Medications: 13:30 Drug: NS 0.9% 500 ml Route: IV; Rate: bolus; Site: right antecubital; ph 14:30 Follow up: Response: No adverse reaction; IV Status: Completed infusion ph 14:50 Drug: Albuterol 2.5 mg Route: Inhalation; ph 14:50 Drug: D50W 50 ml Route: IVP; Site: right antecubital; ph 18:04 Follow up: Response: No adverse reaction ph 15:10 Drug: Albuterol 2.5 mg Route: Inhalation; ph 15:40 Drug: Albuterol 2.5 mg Route: Inhalation; ph 15:46 Drug: Insulin Regular Human 10 units {Co-Signature: navid (Lidya Ragsdale RN).} Route: IVP; la1 Site: right antecubital; 18:03 Follow up: Response: No adverse reaction ph 17:24 Drug: D50W 25 ml Route: IVP; Site: right antecubital; ph 18:03 Follow up: Response: No adverse reaction; Blood sugar is elevated ph Point of Care Testing: Blood Glucose: 17:40 Blood Glucose: 124 mg/dL; ph Ranges: Critical Glucose Levels:Adult <50 mg/dl or >400 mg/dl <40 mg/dl or >180 mg/dl Disposition: 02/20/18 17:46 Discharged to Home. Impression: Hyperkalemia, Dehydration, Urinary tract infection, site not specified. - Condition is Stable. - Discharge Instructions: Dehydration, Adult, Hyperkalemia, Urinary Tract Infection, Adult. - Prescriptions for Augmentin 875- 125 mg Oral Tablet - take 1 tablet by ORAL route every 12 hours for 7 days; 14 tablet. - Medication Reconciliation Form, Thank You Letter, Antibiotic Education, Prescription Opioid Use form. - Follow up: Cesar Estrella MD; When: 2 - 3 days; Reason: Recheck today's complaints, Continuance of care, Re-evaluation by your physician. - Problem is new. - Symptoms have improved. Addendum: 03/02/2018 08:11 Co-signature as Attending Physician, Quan Granado MD I agree with the assessment and k dr plan of care. Signatures: Dispatcher [employer] EDIL Isha Hahn RN RN aj1 Quan Granado MD MD kdr Roszak, Josh, PA PA jr8 Canelo Esquivel RN RN Lidya Gordon RN RN ph Lidya Ragsdale RN ph Corrections: (The following items were deleted from the chart) 02/20 18:06 17:46 02/20/2018 17:46 Discharged to Home. Impression: Hyperkalemia; Dehydration; ph Urinary tract infection, site not specified. Condition is Stable. Forms are Medication Reconciliation Form, Thank You Letter, Antibiotic Education, Prescription Opioid Use. Follow up: Cesar Estrella; When: 2 - 3 days; Reason: Recheck today's complaints, Continuance of care, Re-evaluation by your physician. Problem is new. Symptoms have improved. jr8
--- NOTE | 2018-02-20 18:07 | ER ---
Nurse's Notes [facility] Name: Amari Espinal Sr Age: 77 yrs Sex: Male : 1940 Arrival Date: 02/20/2018 Time: 12:02 Bed 18 Private MD: Steve Frederick T Diagnosis: Hyperkalemia;Dehydration;Urinary tract infection, site not specified Presentation: 02/20 12:05 Presenting complaint: Child states: "Home health checked his blood pressure and they aj1 said it was 76/54. He told us he was feeling woozy earlier. He has been complaining of wooziness for the past couple of weeks" Patient states that he feels normal right now. Denies pain. Transition of care: patient was not received from another setting of care. Onset of symptoms was February 20, 2018. Risk Assessment: Do you want to hurt yourself or someone else?. Initial Sepsis Screen: Does the patient meet any 2 criteria? HR > 90 bpm. No. Patient's initial sepsis screen is negative. Does the patient have a suspected source of infection? No. Patient's initial sepsis screen is negative. Care prior to arrival: None. 12:05 Method Of Arrival: Wheelchair aj1 12:05 Acuity: TEAGAN 2 aj1 Triage Assessment: 12:09 General: Appears in no apparent distress. comfortable, Behavior is calm, cooperative, aj1 appropriate for age. Pain: Denies pain. Neuro: Level of Consciousness is awake, alert, obeys commands. Cardiovascular: Patient's skin is warm and dry. Respiratory: Airway is patent Respiratory effort is even, unlabored, Respiratory pattern is regular, symmetrical. Historical: - Allergies: 12:09 No Known Allergies; aj1 - Home Meds: 12:09 Eliquis 5 mg Oral tab 1 tab 2 times per day [Active]; famotidine 20 mg Oral tab 1 tab aj1 once daily [Active]; methocarbamol 500 mg Oral tab 1 tabs three times a day [Active]; senna 8.6 mg Oral tab 1 tabs once daily [Active]; Multiple Vitamins Oral tab 1 tab daily [Active]; aspirin 81 mg Oral chew 1 tab once daily [Active]; atorvastatin 10 mg Oral tab 1 tab nightly [Active]; - PMHx: 12:09 Atrial Fib; COPD; Dementia; hemiplagia affecting left side; Hyperlipidemia; PVD; TIA; aj1 - Immunization history:: Flu vaccine is not up to date. - Social history:: Smoking status: Patient/guardian denies using tobacco. - Ebola Screening: : Patient denies travel to an Ebola-affected area in the 21 days before illness onset. Screenin:11 Abuse screen: Denies threats or abuse. Denies injuries from another. Nutritional ph screening: No deficits noted. Tuberculosis screening: No symptoms or risk factors identified. Fall Risk No fall in past 12 months (0 pts). Secondary diagnosis (15 points) dementia, impaired mobility, IV access (20 points). Ambulatory Aid- None/Bed Rest/Nurse Assist (0 pts). Gait- Impaired (20 pts.). Mental Status- Overestimates/Forgets Limitations (15 pts.). Total Moon Fall Scale indicates High Risk Score (45 or more points). Fall prevention measures have been instituted. Side Rails Up X 2 Placed Close to Nursing Station Frequent Obs/Assessments Occuring Family Present and informed to notify staff if the need to leave the bedside As available patient and family educated on Fall Prevention Program and Strategies. Assessment: 13:09 General: Appears in no apparent distress. comfortable, Behavior is calm, cooperative, ph appropriate for age, Denies fever, feeling ill. Pain: Denies pain. Neuro: Level of Consciousness is awake, obeys commands, lethargic, Oriented to person, place. Cardiovascular: Reports lightheadedness, Denies chest pain, nausea, shortness of breath, Capillary refill < 3 seconds Patient's skin is warm and dry. Respiratory: Airway is patent Respiratory effort is even, unlabored, Respiratory pattern is regular, symmetrical. GI: Patient currently denies abdominal pain, diarrhea, nausea, vomiting. : Denies burning with urination, urinary frequency. Derm: Skin is fragile, is thin, Skin is pink, warm \\T\\ dry. Wound vac noted to R foot. Musculoskeletal: Circulation, motion, and sensation intact. 14:00 Reassessment: Patient appears in no apparent distress at this time. No changes from ph previously documented assessment. Patient and/or family updated on plan of care and expected duration. Pain level reassessed. 15:01 Reassessment: Patient appears in no apparent distress at this time. Patient and/or ph family updated on plan of care and expected duration. Pain level reassessed. Pt assisted onto bedside commode by daughter. 15:43 Reassessment: Patient appears in no apparent distress at this time. Patient and/or ph family updated on plan of care and expected duration. Pain level reassessed. Pt awake and alert, denies pain at this time, VSS, family at bedside. 16:44 Reassessment: Patient appears in no apparent distress at this time. Patient and/or ph family updated on plan of care and expected duration. Pain level reassessed. Repeat BMP drawn, awaiting results, family at bedside VSS, pt denies pain. 17:45 Reassessment: Patient appears in no apparent distress at this time. Patient and/or ph family updated on plan of care and expected duration. Pain level reassessed. Pt awake and alert, respirations even and unlabored, BGL increased to 124 after IV D50, pt now eating dinner, tolerating well, daughter at bedside, awaiting d/c home. Vital Signs: 12:09 BP 88 / 62; Pulse 75; Resp 18; Temp 97.2; Pulse Ox 96% on R/A; Weight 61.23 kg (R); aj1 Height 5 ft. 7 in. (170.18 cm) (R); Pain 0/10; 12:45 BP 111 / 72; Pulse 81; Resp 18; Pulse Ox 98% on R/A; ph 13:15 BP 142 / 82; Pulse 82; Resp 18; Pulse Ox 99% on R/A; ph 13:45 BP 148 / 82; Pulse 80; Resp 16; Pulse Ox 99% on R/A; ph 14:30 BP 156 / 81; Pulse 92; Resp 16; Pulse Ox 98% on R/A; ph 15:00 BP 165 / 82; Pulse 90; Resp 18; Pulse Ox 98% on R/A; ph 15:35 BP 156 / 84; Pulse 84; Resp 18; Pulse Ox 99% on R/A; ph 16:44 BP 158 / 76; Pulse 78; Resp 18; Pulse Ox 98% on R/A; ph 17:40 BP 173 / 83; Pulse 82; Resp 18; Temp 97.8; Pulse Ox 99% on R/A; ph 12:09 Body Mass Index 21.14 (61.23 kg, 170.18 cm) aj1 ED Course: 12:02 Patient arrived in ED. sb2 12:02 Steve Frederick MD is Private Physician. sb2 12:07 Triage completed. aj1 12:09 Arm band placed on Patient placed in an exam room. aj1 12:18 Reinier Mcclure PA is PHCP. jr8 12:18 Quan Granado MD is Attending Physician. jr8 12:29 Lidya Ragsdale, RN is Primary Nurse. ph 12:50 Initial lab(s) drawn, by me, sent to lab. Inserted saline lock: 20 gauge in right ph antecubital area, using aseptic technique. Blood collected. 12:53 Chest Single View XRAY In Process Unspecified. EDMS 13:11 Patient has correct armband on for positive identification. Placed in gown. Bed in low ph position. Call light in reach. Side rails up X2. Pulse ox on. NIBP on. Warm blanket given. 13:31 Straight cath inserted, using sterile technique, 16 Fr. Specimen obtained. Returned ph clear yellow urine. Patient tolerated poorly. 15:41 No provider procedures requiring assistance completed. ph 17:45 Cesar Estrella MD is Referral Physician. jr8 18:03 IV discontinued, intact, bleeding controlled, No redness/swelling at site. Pressure ph dressing applied. Administered Medications: 13:30 Drug: NS 0.9% 500 ml Route: IV; Rate: bolus; Site: right antecubital; ph 14:30 Follow up: Response: No adverse reaction; IV Status: Completed infusion ph 14:50 Drug: Albuterol 2.5 mg Route: Inhalation; ph 14:50 Drug: D50W 50 ml Route: IVP; Site: right antecubital; ph 18:04 Follow up: Response: No adverse reaction ph 15:10 Drug: Albuterol 2.5 mg Route: Inhalation; ph 15:40 Drug: Albuterol 2.5 mg Route: Inhalation; ph 15:46 Drug: Insulin Regular Human 10 units {Co-Signature: ph (Lidya Ragsdale RN).} Route: IVP; la1 Site: right antecubital; 18:03 Follow up: Response: No adverse reaction ph 17:24 Drug: D50W 25 ml Route: IVP; Site: right antecubital; ph 18:03 Follow up: Response: No adverse reaction; Blood sugar is elevated ph Point of Care Testing: Blood Glucose: 17:40 Blood Glucose: 124 mg/dL; ph Ranges: Outcome: 17:46 Discharge ordered by MD. fry 18:02 Discharged to home via wheelchair. ph 18:02 Condition: improved 18:02 Discharge instructions given to family, Instructed on discharge instructions, follow up and referral plans. medication usage, Demonstrated understanding of instructions, follow-up care, medications, Prescriptions given X 1. 18:06 Patient left the ED. ph Signatures: Dispatcher [employer] EDIsha Malik RN RN aj1 Reinier Mcclure PA PA jr8 Canelo Esquivel RN RN la1 Lidya Ragsdale RN RN ph Grecia Olmedo 2 Lidya Ragsdale RN ph Corrections: (The following items were deleted from the chart) 12:10 12:09 BP 88 / 62; Pulse 75bpm; Resp 18bpm; Pulse Ox 96% RA; Temp 97.2F; 58.97 kg aj1 Reported; Height 5 ft. 7 in. Reported; BMI: 20.3; Pain 0/10; aj1
== END 2018-02-20 18:06 | disposition home or self-care (01) ==
LOC: ER 11:58
DX: E86.0 Dehydration (principal); E87.5 Hyperkalemia; N39.0 Urinary tract infection, site not specified; I48.91 Unspecified atrial fibrillation; J44.9 Chronic obstructive pulmonary disease, unspecified; F03.90 Unspecified dementia, unspecified severity, without behavioral disturbance, psychotic disturbance, mood disturbance, and anxiety; E78.5 Hyperlipidemia, unspecified; Z79.01 Long term (current) use of anticoagulants; Z79.82 Long term (current) use of aspirin
CPT/HCPCS: 36415; 51702; 71045; 80048; 80076; 81003; 81015; 82550; 82962; 83605; 84145; 84484; 85025; 85610; 87040; 87086; 87088; 96361; 96374; 96375; 99284

== ENCOUNTER 2018-04-13 18:50 | Inpatient (IN) | payer OTHER ==
--- OUTSIDE RECORDS SUMMARY | 2018-04-13 18:54 | XMS REPORT | Continuity of Care Document ---
:1940 Author Organization Interface Problems Problem Status Onset Classification Date Comments Source Date Reported Clostridium Active Problem 10/16/2017 Problem [facility] difficile<sup>1 8 added by Medical , 2</sup> Discern Center Expert. SEPSIS Active [facility] 8 Medical Center Medications Medication Details Route Status Patient Ordering Order Source Instructions Provider Date Famotidine 10 10 mg=1 tab, Active [place] MG Oral Tablet PO, BID, # 60 2018 Medical tab, 0 Center Refill(s), Pharmacy: [facility] [id number] memantine 5 mg 5 mg=1 tab, PO, Active [facility] oral tablet BID, # 60 tab, 2018 Medical 0 Refill(s), [facility] [id number] vancomycin 250 125 mg=2.5 mL, Active [place] mg/5 mL oral PO, ABXQ6H, # 2018 Medical solution 70 mL, 0 Center Refill(s), other apixaban 5 mg 5 mg, PO, Q12H, Active [facility] oral tablet # 60 tab, 0 2018 Medical Refill(s), [id number] atorvastatin 10 10 mg=1 tab, Active [place] mg oral tablet PO, Bedtime, # 2018 Medical 30 tab, 0 Center Refill(s), [facility] [id number] Docusate Sodium 100 mg=1 cap, Active [place] 100 MG Oral PO, BID, # 60 2018 Medical Capsule cap, 0 Center [Colace] Refill(s), [facility] [id number] Vancomycin 125 mg=2.5 mL, Inactive [place] PO, ABXQ6H, 0 2018 Medical Refill(s) [facility] Potassium 40 mEq, 2 tab, Inactive [facility] Chloride Route: PO, Drug 2018 Medical form: ERTAB, [facility] BID, Dosing Weight 57.38, kg, Start date: [...] Patients with feeding tube less than 14 [place] (Dobhoff, J-tube etc) and pediatric and patients. With food and full glass of water atorvastatin 10 mg, 1 tab, No Longer [place] Route: PO, Drug Active 2017 Medical form: TAB, [facility] Bedtime, kg, Start date: 10/11/17 21:00:00 CDT, Duration: 30 day, Stop date: 11/09/17 21:00:00 CDTNotes: (Same As: Lipitor) vancomycin 500 mg, Route: No Longer [place] IVPB, Drug Active 2017 Medical form: PDR/INJ, Center [id number], Start date: 10/11/17 17:00:00 CDT, Duration: 30 day, Stop date: 11/10/17 5:00:00 CDT, ABX Indication: Bone/Joint InfectionNotes: TIME CRITICAL MEDICATION (Same As: Vancocin) For adult patients only: Round to nearest 250 mg per Medical Staff approval Memantine 5 mg, 1 tab, No Longer [place] Route: PO, Drug Active 2017 Medical form: [...] MG 81 mg, 1 tab, No Longer [place] Enteric Coated Route: PO, Drug Active 2017 Medical Tablet form: ECTAB, Center Daily, kg, Start date: 10/11/17 9:00:00 CDT, Duration: 30 day, Stop date: 11/09/17 9:00:00 CDTNotes: Do not crush or chew. (Same As: Ecotrin) apixaban 5 mg, 1 tab, No Longer [place] Route: PO, Drug Active 2017 Medical form: TAB, Center Q12H, kg, Start date: 10/11/17 9:00:00 CDT, Duration: 30 day, Stop date: 11/09/17 21:00:00 CDTNotes: Same as: Eliquis Docusate 100 mg, 1 cap, No Longer [facility] Route: PO, Drug Active 2017 Medical form: CAP, BID, Center kg, Start date: 10/11/17 9:00:00 CDT, Duration: 30 day, Stop date: 11/09/17 17:00:00 CDTNotes: (Same as: Colace) (Do Not Crush) Flagyl 500 mg, 1 tab, No Longer [facility] Route: PO, Drug Active 2017 Medical form: TAB, Q8H, Center kg, Start date: 10/11/17 8:00:00 CDT, Duration: 30 day, Stop date: 11/10/17 0:00:00 CDT, ABX Indication: Infectious DiarrheaNotes: (Same as: Flagyl) Take with food/ avoid alcohol Albuterol 0.833 3 mL, Route: No Longer [place] MG/ML / INHALATION, Active 2017 Medical Ipratropium Drug Form: [facility] [place] 0.167 SOLN, kg, RQID, MG/ML Inhalant Start [...] 0:55:00 CDT Vancomycin 1.25 gm, Route: Inactive [place] IVPB, ONCE, kg, 2018 Medical Start date: [facility] 10/11/17 0:45:00 CDT, Stop date: 10/11/17 0:45:00 CDT, ABX Indication: Bone/Joint InfectionNotes: TIME CRITICAL MEDICATION (Same As: Vancocin) Infusion rate 2001 mg: infuse over 2.5 hours For adult patients only: Round to nearest 250 mg per Medical Staff approval MEDICATION WASTE Product Size: 1000 mg Product Wasted: ___ mg Vancomycin 125 mg, 2.5 mL, No Longer [place] Route: PO, Drug Active 2018 Medical form: YAMILET [place] ABXQ6H, kg, Start date: 10/10/17 23:00:00 CDT, [...] g 1 gm, IV, Q24H, No Longer [facility] intravenous # 10 doses or Active 2018 Medical injection times, 0 Center Refill(s) metoprolol 12.5 mg=0.5 No Longer [facility] tartrate 25 mg tab, PO, BID, # Active 2018 Medical oral tablet 180 tab, 0 Center Refill(s) memantine 5 mg 5 mg=1 tab, PO, No Longer [facility] oral tablet BID, # 60 tab, Active 2018 Medical 0 Refill(s) Center Metronidazole 500 mg=1 tab, No Longer [place] 500 MG Oral PO, Q8H, # 30 Active 2018 Medical Tablet [Flagyl] tab, 0 Center Refill(s) Famotidine 10 10 mg=1 tab, No Longer [facility] MG Oral Tablet PO, BID, # 180 Active 2018 Medical tab, 0 Center Refill(s) Albuterol 0.833 3 ml, No Longer [place] MG/ML / INHALATION, Active 2018 Medical Ipratropium QID, # 30 ea, 0 Center [place] 0.167 Refill(s) MG/ML Inhalant Solution [DuoNeb] Docusate Sodium 100 mg=1 cap, No Longer [place] 100 MG Oral PO, BID, # 60 Active 2017 Medical Capsule cap, 0 Center [Colace] Refill(s) atorvastatin 10 10 mg=1 tab, No Longer [facility] mg oral tablet PO, Bedtime, # Active 2018 Medical 30 tab, 0 Center Refill(s) Aspirin 81 MG 81 mg=1 tab, Active [facility] Enteric Coated PO, Daily, # 90 2018 Medical Tablet tab, 3 Center Refill(s) apixaban 5 mg 5 mg, PO, Q12H, No Longer [facility] oral tablet 0 Refill(s) Active 2018 Medical Center Ondansetron 4 mg, 2 mL, No Longer [place] Route: IVP, Active 2017 Medical Drug form: INJ, Center Q6H, kg, PRN Nausea & Vomiting, Start date: 10/10/17 21:02:00 CDT, Duration: 30 day, Stop date: 11/09/17 21:01:00 CDTNotes: (Same as: Zofran) MEDICATION WASTE Product Size: 4 mg Product Wasted: ___ mg Acetaminophen 650 mg, 2 tab, No Longer [facility] Route: PO, Drug Active 2017 Medical [...] Comments Source Updated pneumococcal 10/13/2017 Left completed [facility] Results Order Name Results Value Reference Date Interpretation Comments Source Range ELECTROLYTES Sodium Lvl 139 meq/L 135 - 145 10/[address] ELECTROLYTES Glucose Lvl 81 mg/dL 70 - 99 10/[address] ELECTROLYTES BUN 13 mg/dL 7 - 22 10/[address] ELECTROLYTES Creatinine 0.71 0.50 - 10/13 [facility] Lvl mg/dL [address] [place] [address] ELECTROLYTES eGFR 89 10/13 Result Comment: The eGFR is calculated using the CKD-EPI formula. In most young, healthy individuals the eGFR will be > 90 mL/min/1.73m2. The eGFR declines with age. An eGFR of 60-89 may be normal in [facility] mL/min/1. some populations, particularly the elderly, for whom the CKD-EPI formula has not been extensively validated. Use of the eGFR is not recommended in the following populations: [address] Individuals with unstable creatinine concentrations, including [...] Lvl 8.4 mg/dL 8.5 - 10.5 10/[address] ELECTROLYTES Potassium Lvl 3.2 meq/L 3.5 - 5.1 10/[address] ELECTROLYTES Chloride Lvl 105 meq/L 95 - 109 10/[address] ELECTROLYTES CO2 23 meq/L 24 - 32 10/[address] ELECTROLYTES AGAP 14.2 10.0 - 10/13 [facility] meq/L 20.[address] [place] [address] HEMATOLOGY Basophils # 0.1 K/CMM 0.0 - 0.2 10/[address] HEMATOLOGY Eosinophils 2.9 % 0.0 - 4.0 10/[address] HEMATOLOGY Segs-Bands # 6.3 K/CMM 1.5 - 8.1 10/[address] HEMATOLOGY Monocytes # 1.3 K/CMM 0.0 - 0.8 10/[address] HEMATOLOGY Lymphocytes # 2.4 K/CMM 1.0 - 5.5 10/13 2017 [facility] HEMATOLOGY Eosinophils # 0.3 K/CMM 0.0 - 0.5 10/13 [facility] HEMATOLOGY Lymphocytes 23.4 % 20.0 - 10/13 [facility] 40.0 [facility] HEMATOLOGY Segs 60.4 % 45.0 - 10/13 [place] 75.0 [facility] HEMATOLOGY Monocytes 12.8 % 2.0 - 12.0 10/13 [facility] HEMATOLOGY Basophils 0.5 % 0.0 - 1.0 10/13 [facility] HEMATOLOGY RBC 3.31 4.70 - 10/13 [facility] M/[facility] 6.10 [facility] HEMATOLOGY Hct 27.8 % 42.0 - 10/13 [facility] 54.0 [facility] HEMATOLOGY Hgb 9.2 g/dL 14.0 - 10/13 [facility] 18.0 [facility] HEMATOLOGY MCH 27.8 pg 27.0 - 10/13 [facility] 31.0 [facility] HEMATOLOGY MCV 84.2 fL 80.0 - 10/13 [facility] 94.0 [facility] HEMATOLOGY MCHC 32.9 g/dL 32.0 - 10/13 [facility] 36.0 [facility] HEMATOLOGY Platelet 300 K/CMM 133 - 450 10/13 [facility]2017 [facility] HEMATOLOGY RDW 18.3 % 11.5 - 10/13 [facility] 14.5 [facility] HEMATOLOGY MPV 7.8 fL 7.4 - 10.4 10/13 [facility] HEMATOLOGY WBC 10.4 3.7 - 10.4 10/13 [facility] K/CMM [facility] CHEM PANEL eGFR 83 10/12 Result Comment: The eGFR is calculated using the CKD-EPI formula. In most young, healthy individuals the eGFR will be >90 mL/ min/1.73m2. The eGFR declines with age. An eGFR of 60-89 may be normal in [facility] mL/min/1. some populations, particularly the elderly, for whom the CKD-EPI formula has not been extensively validated. Use of the eGFR is not recommended in the following populations: [place] [address] Center Individuals with unstable creatinine concentrations, including [...] Lvl 81 mg/dL 70 - 99 10/[address] CHEM PANEL Bili Total 0.5 mg/dL 0.2 - 1.3 10/[address] CHEM PANEL Alk Phos 51 unit/L 39 - 136 10/[address] CHEM PANEL AST 18 unit/L 0 - 37 10/[address] CHEM PANEL ALT 14 unit/L 0 - 65 10/[address] CHEM PANEL Albumin Lvl 2.0 g/dL 3.5 - 5.0 10/[address] CHEM PANEL Total Protein 6.0 g/dL 6.4 - 8.4 10/[address] CHEM PANEL Calcium Lvl 8.2 mg/dL 8.5 - 10.5 10/[address] CHEM PANEL CO2 23 meq/L 24 - 32 10/[address] CHEM PANEL Chloride Lvl 107 meq/L 95 - 109 10/[address] CHEM PANEL Potassium Lvl 3.4 meq/L 3.5 - 5.1 10/[address] CHEM PANEL Sodium Lvl 140 meq/L 135 - 145 10/[address] CHEM PANEL Creatinine 0.84 0.50 - 10/12 [facility] Lvl mg/dL 1.40 [facility] CHEM PANEL BUN 14 mg/dL 7 - 22 10/[address] CHEM PANEL A/G Ratio 0.5 0.7 - 1.6 10/[address] CHEM PANEL Globulin 4.0 g/dL 2.7 - 4.2 10/[address] CHEM PANEL B/C Ratio 17 6 - 25 10/[address] CHEM PANEL AGAP 13.4 10.0 - 10/12 [facility] meq/L 20.0 [facility] CHEM PANEL Magnesium Lvl 1.9 mg/dL 1.8 - 2.4 10/[address] CHEM PANEL Ammonia 52.0 <=45.0 10/12 [facility] umol/L uMol/L /2017 [facility] HEMATOLOGY Hct 26.2 % 42.0 - 10/12 54.0 [facility] HEMATOLOGY Hgb 8.6 g/dL 14.0 - 10/12 [facility] 18.0 [facility] HEMATOLOGY MCHC 33.0 g/dL 32.0 - 10/12 [facility] 36.0 [facility] HEMATOLOGY MCH 27.4 pg 27.0 - 10/12 [facility] 31.0 [facility] HEMATOLOGY MCV 83.3 fL 80.0 - 10/12 [facility] 94.0 [facility] HEMATOLOGY RDW 18.3 % 11.5 - 10/12 [facility] 14.5 [facility] HEMATOLOGY MPV 7.7 fL 7.4 - 10.4 10/[address] HEMATOLOGY Platelet 294 K/CMM 133 - 450 10/[address] HEMATOLOGY RBC 3.15 4.70 - 10/12 [facility] M/CMM 6.10 [facility] HEMATOLOGY WBC 10.9 3.7 - 10.4 10/12 [facility] K/CMM [facility] HEMATOLOGY Eosinophils # 0.3 K/CMM 0.0 - 0.5 10/[address] HEMATOLOGY Monocytes # 1.3 K/CMM 0.0 - 0.8 10/[address] HEMATOLOGY Lymphocytes # 2.0 K/CMM 1.0 - 5.5 10/[address] HEMATOLOGY Basophils # 0.1 K/CMM 0.0 - 0.2 10/[address] [place] [address] HEMATOLOGY Segs 66.2 % 45.0 - 10/12 [facility] 75.0 [facility] HEMATOLOGY Lymphocytes 18.0 % 20.0 - 10/12 [facility] 40.0 [facility] HEMATOLOGY Eosinophils 2.8 % 0.0 - 4.0 10/[address] HEMATOLOGY Monocytes 12.4 % 2.0 - 12.0 10/[address] HEMATOLOGY Segs-Bands # 7.2 K/CMM 1.5 - 8.1 10/[address] HEMATOLOGY Basophils 0.6 % 0.0 - 1.0 10/[address] CHEM PANEL Lactic Acid 0.8 0.5 - 2.2 10/11 [facility] Lvl mMol/L [facility] CHEM PANEL Procalcitonin 0.73 0.00 - 10/11 [facility] Lvl ng/mL 0.10 [facility] HEMATOLOGY Sed Rate 45 mm/h 0 - 15 10/[address] IMMUNOLOGY C-REACTIVE 132.0 <=2.9 mg/L 10/11 [facility] PROTEIN mg/L [facility] MOLECULAR C difficile Positive 1 Negative 10/11 Result [facility] DIAGNOSTIC Comment: Medical *ABN* "Significant Center Findings (10/11/17 12:26 AM) called to Augie Bautista at 10/11/2017 08:17 by DO. Read Back OK." CHEM PANEL Phosphorus 3.3 mg/dL 2.5 - 4.5 10/11 [facility]2017 [facility] CHEM PANEL Magnesium Lvl 1.9 mg/dL 1.8 - 2.4 10/[address] CHEM PANEL eGFR 73 10/11 Result Comment: The eGFR is calculated using the CKD-EPI formula. In most young, healthy individuals the eGFR will be >90 mL/ min/1.73m2. The eGFR declines with age. An eGFR of 60-89 may be normal in [facility] mL/min/1 some populations, particularly the elderly, for whom the CKD-EPI formula has not been extensively validated. Use of the eGFR is not recommended in the following populations: [address] Individuals with unstable creatinine concentrations, including [...] AST 18 unit/L 0 - 37 10/11 [facility] CHEM PANEL Alk Phos 56 unit/L 39 - 136 10/[address] CHEM PANEL Bili Total 0.5 mg/dL 0.2 - 1.3 10/[address] CHEM PANEL Total Protein 6.4 g/dL 6.4 - 8.4 10/[address] CHEM PANEL ALT 16 unit/L 0 - 65 10/[address] CHEM PANEL Chloride Lvl 105 meq/L 95 - 109 10/[address] CHEM PANEL Potassium Lvl 3.8 meq/L 3.5 - 5.1 10/[address] CHEM PANEL Albumin Lvl 2.3 g/dL 3.5 - 5.0 10/[address] CHEM PANEL Calcium Lvl 8.5 mg/dL 8.5 - 10.5 10/[address] CHEM PANEL CO2 25 meq/L 24 - 32 10/[address] CHEM PANEL Sodium Lvl 138 meq/L 135 - 145 10/[address] CHEM PANEL Creatinine 0.98 0.50 - 10/11 [facility] Lvl mg/dL 1.40 [facility] CHEM PANEL BUN 20 mg/dL 7 - 22 10/[address] CHEM PANEL Glucose Lvl 103 mg/dL 70 - 99 10/[address] CHEM PANEL A/G Ratio 0.6 0.7 - 1.6 10/[address] CHEM PANEL AGAP 11.8 10.0 - 10/11 [facility] meq/L 20.0 [facility] CHEM PANEL B/C Ratio 20 6 - 25 10/[address] CHEM PANEL Globulin 4.1 g/dL 2.7 - 4.2 10/[address] HEMATOLOGY Basophils 0.5 % 0.0 - 1.0 10/[address] HEMATOLOGY Segs-Bands # 17.5 1.5 - 8.1 10/11 [facility] K/[facility] /[address] [place] [address] HEMATOLOGY Eosinophils 0.5 % 0.0 - 4.0 10/[address] HEMATOLOGY Lymphocytes 8.5 % 20.0 - 10/11 [facility] [address] [place] [address] HEMATOLOGY Basophils # 0.1 K/CMM 0.0 - 0.2 10/[address] HEMATOLOGY Lymphocytes # 1.8 K/CMM 1.0 - 5.5 10/[address] HEMATOLOGY Monocytes 8.3 % 2.0 - 12.0 10/[address] HEMATOLOGY Monocytes # 1.8 K/CMM 0.0 - 0.8 10/[address] [place] [address] HEMATOLOGY Eosinophils # 0.1 K/CMM 0.0 - 0.5 10/11 [facility] HEMATOLOGY Segs 82.2 % 45.0 - 10/11 [facility] 75.0 [facility] HEMATOLOGY Platelet 318 K/CMM 133 - 450 10/11 2017 [facility] HEMATOLOGY MPV 7.3 fL 7.4 - 10.4 10/[address] [place] [address] HEMATOLOGY WBC 21.3 3.7 - 10.4 10/11 [facility] K/CMM /2017 [facility] HEMATOLOGY RDW 18.6 % 11.5 - 10/11 [facility] 14.5 [facility] HEMATOLOGY Hct 27.6 % 42.0 - 10/11 [facility] 54.0 [facility] HEMATOLOGY Hgb 9.0 g/dL 14.0 - 10/11 [facility] 18.0 [facility] HEMATOLOGY RBC 3.31 4.70 - 10/11 [facility] M/[facility] 6.10 [facility] HEMATOLOGY MCV 83.3 fL 80.0 - 10/11 [facility] 94.0 [facility] HEMATOLOGY MCH 27.2 pg 27.0 - 10/11 [facility] 31.0 [facility] HEMATOLOGY MCHC 32.7 g/dL 32.0 - 10/11 [facility] 36.0 [facility] TOXICOLOGY Vanco Lvl 4.6 ug/ml 10/[address] Vital Signs Vital Sign Value Date Comments Source Systolic (mm Hg) 163 10/13/2017 [facility] Diastolic (mm Hg) 73 10/13/2017 [facility] Temperature Oral (F) 97.4 F 10/13/2017 [facility] Heart Rate 74 10/13/2017 [facility] Systolic (mm Hg) 172 10/13/2017 [facility] Diastolic (mm Hg) 71 10/13/2017 [facility] Respitory Rate 20 10/13/2017 [facility] Respitory Rate 18 10/13/2017 [facility] Temperature Oral (F) 97.2 F 10/13/2017 [facility] Heart Rate 62 10/13/2017 [facility] Systolic (mm Hg) 163 10/13/2017 [facility] Diastolic (mm Hg) 80 10/13/2017 [facility] Heart Rate 83 10/13/2017 [facility] Temperature Oral (F) 97.4 F 10/13/2017 [facility] Respitory Rate 18 10/13/2017 [facility] Height 175.2 cm 10/11/2017 [facility] Weight 57.38 10/11/2017 [facility] Height 175.2 cm 10/11/2017 [facility] Weight 57.38 10/11/2017 [facility] BMI Calculated 18.69 10/11/2017 [facility] Encounters Location Location Encounter Encounter Reason Attending ADM DC Status Source Details Type Number For Provider Date Date Visit [facility] [id number] Non 10/10 10/13 [facility] Physician /2017 [facility] Procedures Procedure Code Date Perfomer Comments Source
[2018-04-13] MEDS ORDERED: AZITHROMYCIN 250 MG TAB ONE (20:01)
[2018-04-13] MEDS ORDERED: METHYLPREDNISOLONE 125 MG INJ ONE (20:01)
[2018-04-13] MEDS ORDERED: IPRATROPIUM BROM 0.5MG/2.5ML ONE (20:02)
[2018-04-13] MEDS ORDERED: NA CHLORIDE 0.9% 1,000 ML ONE (20:02)
[2018-04-13] MEDS ORDERED: ALBUTEROL 2.5 MG/3 ML NEB SOL ONE (20:02)
[2018-04-13] MEDS ORDERED: CEFTRIAXONE 1000 MG/VIAL ONE (20:02)
[2018-04-13] MEDS ORDERED: NA CHLORIDE 0.9% 50 ML IV ONE (20:02)
[2018-04-13 21:13] LABS: Absolute Monocytes 1.2 K/uL (0.1-1.3); Absolute Neutrophil 4.8 K/uL (1.8-8.0); Eosinophils % 2.9 % (0-4.4); Hematocrit 31.1 % (39.6-49.0); Lymphocytes % 24.1 % (15.3-44.8); MCH 27.9 pg (27.0-35.0); MCV 85.5 fL (80-100); MPV 8.2 fL (7.6-11.3); Monocytes % 14.6 % (3.3-12.3); RBC Red Blood Cell Count 3.64 M/uL (4.33-5.43)
[2018-04-13 21:22] LABS: Protime INR 1.97
[2018-04-13 21:49] LABS: Bilirubin Direct 0.2 mg/dL (0-0.2); Bilirubin Total 0.4 mg/dL (0.2-1.0); Magnesium 2.3 mg/dL (1.8-2.4); Potassium 4.9 mmol/L (3.5-5.1); Protein, Total 7.1 g/dL (6.4-8.2); Troponin (Emerg Dept Use Only) 0.06 ng/mL (0.0-0.045)
[2018-04-13] MEDS ORDERED: FUROSEMIDE 40 MG/4 ML VIAL ONE (22:24)
--- NOTE | 2018-04-13 22:24 | EDPHYS ---
Physician Documentation [facility] Name: Amari Espinal Sr Age: 77 yrs Sex: Male : 1940 Arrival Date: 04/13/2018 Time: 18:52 Bed 19 Private MD: Steve Frederick T ED Physician Efrain Marks HPI: 04/13 22:15 This 77 yrs old Male presents to ER via Wheelchair with complaints of Cough. ma2 22:15 The patient or guardian reports cough, that is constant. ma2 22:18 Onset: The symptoms/episode began/occurred gradually, 2 week(s) ago. Severity of ma2 symptoms: At their worst the symptoms were moderate. Associated signs and symptoms: Pertinent positives: chest pain, cough, this patient has no pertinent positive symptoms Pertinent negatives: chest pain. The patient has not experienced similar symptoms in the past. Historical: - Allergies: 19:09 No Known Allergies; aj1 - Home Meds: 19:09 aspirin 81 mg Oral chew 1 tab once daily [Active]; atorvastatin 10 mg Oral tab 1 tab aj1 nightly [Active]; Eliquis 5 mg Oral tab 1 tab 2 times per day [Active]; famotidine 20 mg Oral tab 1 tab once daily [Active]; methocarbamol 500 mg Oral tab 1 tabs three times a day [Active]; Multiple Vitamins Oral tab 1 tab daily [Active]; senna 8.6 mg Oral tab 1 tabs once daily [Active]; - PMHx: 19:09 Atrial Fib; COPD; Dementia; hemiplagia affecting left side; Hyperlipidemia; PVD; TIA; aj1 - Immunization history:: Flu vaccine is not up to date. - Social history:: Smoking status: Patient/guardian denies using tobacco, Patient/guardian denies using alcohol, street drugs, The patient lives with family. - Ebola Screening: : Patient denies travel to an Ebola-affected area in the 21 days before illness onset. - Family history:: not pertinent. ROS: 22:18 Constitutional: Negative for fever, chills, and weight loss. ma2 22:18 Respiratory: Positive for cough, wheezing, Negative for dyspnea on exertion, hemoptysis, pleurisy, shortness of breath, sputum production. 22:18 All other systems are negative. Exam: 22:18 Constitutional: This is a well developed, well nourished patient who is awake, alert, ma2 and in no acute distress. Chest/axilla: Normal chest wall appearance and motion. Nontender with no deformity. No lesions are appreciated. Cardiovascular: Regular rate and rhythm with a normal S1 and S2. No gallops, murmurs, or rubs. Normal PMI, no JVD. No pulse deficits. 22:18 Head/Face: Normocephalic, atraumatic. ENT: Nares patent. No nasal discharge, no septal abnormalities noted. Tympanic membranes are normal and external auditory canals are clear. Oropharynx with no redness, swelling, or masses, exudates, or evidence of obstruction, uvula midline. Mucous membranes moist. Abdomen/GI: Soft, non-tender, with normal bowel sounds. No distension or tympany. No guarding or rebound. No evidence of tenderness throughout. MS/ Extremity: Pulses equal, no cyanosis. Neurovascular intact. Full, normal range of motion. Neuro: Awake and alert, GCS 15, oriented to person, place, time, and situation. Cranial nerves II-XII grossly intact. Motor strength 5/5 in all extremities. Sensory grossly intact. Cerebellar exam normal. Normal gait. 22:18 Cardiovascular: Rate: actual rate is 95 bpm. 22:18 Respiratory: mild respiratory distress is noted, Respirations: Breath sounds: wheezing: expiratory is scattered. Vital Signs: 19:09 BP 151 / 107; Pulse 85; Resp 20; Temp 98.1; Pulse Ox 95% on R/A; Weight 63.5 kg (R); aj1 Height 5 ft. 7 in. (170.18 cm) (R); Pain 0/10; 20:15 BP 121 / 82; Pulse 96; Resp 23 S; Pulse Ox 94% on R/A; cc3 21:16 BP 129 / 90; Pulse 94; Resp 20 S; Pulse Ox 95% on 2 lpm NC; cc3 22:50 BP 126 / 97; Pulse 103; Resp 21 S; Pulse Ox 97% on 1 lpm NC; cc3 23:15 BP 110 / 80; Pulse 99; Resp 20 S; Pulse Ox 97% on 1 lpm NC; cc3 04/14 00:05 BP 114 / 85; Pulse 93; Resp 21 S; Pulse Ox 97% on 1 lpm NC; cc3 04/13 19:09 Body Mass Index 21.93 (63.50 kg, 170.18 cm) aj1 MDM: 04/13 19:11 Patient medically screened. ma2 22:18 Differential Diagnosis: Bronchitis Viral Syndrome Pneumonia Other chf, copd. Data ma2 reviewed: vital signs, nurses notes, diagnostic data from outside facility. Counseling: I had a detailed discussion with the patient and/or guardian regarding: the historical points, exam findings, and any diagnostic results supporting the discharge/admit diagnosis, the presence of at least one elevated blood pressure reading (>120/80) during this emergency department visit, the need for further work-up and treatment in the hospital. ED course: discussed with dr. pate . 04/13 19:41 Order name: Basic Metabolic Panel; Complete Time: 22:05 [facility] 04/13 19:41 Order name: CBC with Diff; Complete Time: 22:05 [facility] 04/13 19:41 Order name: LFT's; Complete Time: 22:05 [facility] 04/13 19:41 Order name: Magnesium; Complete Time: 22:05 [facility] 04/13 19:41 Order name: NT PRO-BNP; Complete Time: 22:05 [facility] 04/13 19:41 Order name: PT-INR; Complete Time: 22:05 [facility] 04/13 19:41 Order name: Troponin (emerg Dept Use Only); Complete Time: 22:05 [facility] 04/13 19:41 Order name: XRAY Chest (1 view) [facility] 04/13 19:41 Order name: CT Head Brain wo Cont [facility] 04/14 00:22 Order name: Lactate [facility] 04/14 00:35 Order name: Procalcitonin [facility] 04/13 19:41 Order name: EKG; Complete Time: 19:42 [facility] 04/13 19:41 Order name: Cardiac monitoring; Complete Time: 19:42 [facility] 04/13 19:41 Order name: EKG - Nurse/Tech; Complete Time: 20:30 [facility] 04/13 19:41 Order name: IV Saline Lock; Complete Time: 21:11 [facility] 04/13 19:41 Order name: Labs collected and sent; Complete Time: 21:11 [facility] 04/13 19:41 Order name: O2 Per Protocol; Complete Time: 19:43 [facility] 04/13 19:41 Order name: O2 Sat Monitoring; Complete Time: 19:43 ma2 Administered Medications: 20:00 Drug: Zithromax 500 mg Route: PO; cc3 20:30 Follow up: Response: No adverse reaction cc3 20:10 Drug: DuoNeb (3:1) (2.5 mg - 0.5 mg) 3 ml Route: Nebulizer; cc3 20:30 Follow up: Response: No adverse reaction cc3 20:50 Drug: NS 0.9% 1000 ml Route: IV; Rate: 1 bolus; Site: left forearm; cc3 22:00 Follow up: Response: No adverse reaction; IV Status: Completed infusion; IV Intake: cc3 1000ml 20:52 Drug: MethylPrednisoLONE 125 mg Route: IVP; Site: left forearm; cc3 21:15 Follow up: Response: No adverse reaction cc3 20:55 Drug: Rocephin 1 grams Route: IV; Rate: bolus; Site: left forearm; cc3 21:30 Follow up: Response: No adverse reaction; IV Status: Completed infusion cc3 22:50 Drug: Lasix 40 mg Route: IVP; Site: left forearm; cc3 23:10 Follow up: Response: No adverse reaction cc3 23:15 Drug: Lasix 40 mg Route: IVP; Site: left forearm; cc3 23:30 Follow up: Response: No adverse reaction cc3 Disposition: 04/13/18 22:24 Hospitalization ordered by Armida Wu for Observation. Preliminary diagnosis are Acute on chronic combined systolic (congestive) and diastolic (congestive) heart failure, Non-ST elevation (NSTEMI) myocardial infarction. - Bed requested for Telemetry/MedSurg (observation). - Status is Observation. cc3 - Condition is Stable. - Problem is new. - Symptoms are unchanged. UTI on Admission? No Signatures: Dispatcher [employer] EDMS Isha Hahn RN RN aj1 Ivette Banks RN RN kl Alzahri, Mohammad, MD MD ma2 Samira Galvin cc3 Corrections: (The following items were deleted from the chart) 22:11 19:43 Soft Tissue Neck W/Contr+CT.RAD.BRZ ordered. EDMS EDMS 23:45 22:24 Hospitalization Ordered by Armida Wu MD for Observation. Preliminary kl diagnosis is Acute on chronic combined systolic (congestive) and diastolic (congestive) heart failure; Non-ST elevation (NSTEMI) myocardial infarction. Bed requested for Telemetry/MedSurg (observation). Status is Observation. Condition is Stable. Problem is new. Symptoms are unchanged. UTI on Admission? No. ma2 04/14 00:38 04/13 23:45 04/13/2018 22:24 Hospitalization Ordered by Armida Wu MD for cc3 Observation. Preliminary diagnosis is Acute on chronic combined systolic (congestive) and diastolic (congestive) heart failure; Non-ST elevation (NSTEMI) myocardial infarction. Bed requested for Telemetry/MedSurg (observation). Status is Observation. Condition is Stable. Problem is new. Symptoms are unchanged. UTI on Admission? No. kl
--- NOTE | 2018-04-13 22:24 | ER ---
Nurse's Notes [facility] Name: Amari Espinal Sr Age: 77 yrs Sex: Male : 1940 Arrival Date: 04/13/2018 Time: 18:52 Bed 19 Private MD: Steve Frederick T Diagnosis: Acute on chronic combined systolic (congestive) and diastolic (congestive) heart failure;Non-ST elevation (NSTEMI) myocardial infarction Presentation: 04/13 19:05 Presenting complaint: Child states: "Theres knot in the back of his neck, he's been aj1 complaining about it. He said he feels burning in the top of his head and his throat. I don't know what's going on with him. He was coughing when I got to his house. His eyes were red." Patient reports nasal congestion. Patient has a wound vac to right second toe amputation site Patient's daughter reports that he has been complaining of a headache for the past month. Transition of care: patient was not received from another setting of care. Onset of symptoms was April 13, 2018. Risk Assessment: Do you want to hurt yourself or someone else? Patient reports no desire to harm self or others. Initial Sepsis Screen: Does the patient meet any 2 criteria? No. Patient's initial sepsis screen is negative. Does the patient have a suspected source of infection? Yes: Productive cough/pneumonia. Care prior to arrival: None. 19:05 Method Of Arrival: Wheelchair aj1 19:05 Acuity: TEAGAN 3 aj1 Triage Assessment: 19:09 General: Appears in no apparent distress. uncomfortable, ill, Behavior is calm, aj1 cooperative. Pain: Denies pain. Neuro: Level of Consciousness is awake, alert, obeys commands. Cardiovascular: Patient's skin is warm and dry. Respiratory: Airway is patent Respiratory effort is even, unlabored, Respiratory pattern is regular, symmetrical. Historical: - Allergies: 19:09 No Known Allergies; aj1 - Home Meds: 19:09 aspirin 81 mg Oral chew 1 tab once daily [Active]; atorvastatin 10 mg Oral tab 1 tab aj1 nightly [Active]; Eliquis 5 mg Oral tab 1 tab 2 times per day [Active]; famotidine 20 mg Oral tab 1 tab once daily [Active]; methocarbamol 500 mg Oral tab 1 tabs three times a day [Active]; Multiple Vitamins Oral tab 1 tab daily [Active]; senna 8.6 mg Oral tab 1 tabs once daily [Active]; - PMHx: 19:09 Atrial Fib; COPD; Dementia; hemiplagia affecting left side; Hyperlipidemia; PVD; TIA; aj1 - Immunization history:: Flu vaccine is not up to date. - Social history:: Smoking status: Patient/guardian denies using tobacco, Patient/guardian denies using alcohol, street drugs, The patient lives with family. - Ebola Screening: : Patient denies travel to an Ebola-affected area in the 21 days before illness onset. - Family history:: not pertinent. Screenin:25 Abuse screen: Denies threats or abuse. Denies injuries from another. Nutritional cc3 screening: No deficits noted. Tuberculosis screening: No symptoms or risk factors identified. Fall Risk Ambulatory Aid- None/Bed Rest/Nurse Assist (0 pts). Gait- Impaired (20 pts.). Mental Status- Overestimates/Forgets Limitations (15 pts.). Assessment: 19:25 General: see triage assessment. cc3 20:20 Reassessment: Patient appears in no apparent distress at this time. Patient and/or cc3 family updated on plan of care and expected duration. Pain level reassessed. Patient is alert, oriented x 3, equal unlabored respirations, skin warm/dry/pink. 21:18 Reassessment: Patient appears in no apparent distress at this time. Patient and/or cc3 family updated on plan of care and expected duration. Pain level reassessed. Patient is alert, oriented x 3, equal unlabored respirations, skin warm/dry/pink. 22:40 Reassessment: Patient appears in no apparent distress at this time. Patient and/or cc3 family updated on plan of care and expected duration. Pain level reassessed. Patient is alert, oriented x 3, equal unlabored respirations, skin warm/dry/pink. 23:15 Reassessment: Patient appears in no apparent distress at this time. Patient and/or cc3 family updated on plan of care and expected duration. Pain level reassessed. Patient is alert, oriented x 3, equal unlabored respirations, skin warm/dry/pink. 04/14 00:10 Reassessment: Patient appears in no apparent distress at this time. Patient and/or cc3 family updated on plan of care and expected duration. Pain level reassessed. Patient is alert, oriented x 3, equal unlabored respirations, skin warm/dry/pink. Room available in 228, report handed over to RN Lillie Alicea for continuity of care. 00:32 Reassessment: Patient left ER for admission vitally stable by stretcher escorted by ED cc3 joseph Worrell and the patient's daughter. Vital Signs: 04/13 19:09 BP 151 / 107; Pulse 85; Resp 20; Temp 98.1; Pulse Ox 95% on R/A; Weight 63.5 kg (R); aj1 Height 5 ft. 7 in. (170.18 cm) (R); Pain 0/10; 20:15 BP 121 / 82; Pulse 96; Resp 23 S; Pulse Ox 94% on R/A; cc3 21:16 BP 129 / 90; Pulse 94; Resp 20 S; Pulse Ox 95% on 2 lpm NC; cc3 22:50 BP 126 / 97; Pulse 103; Resp 21 S; Pulse Ox 97% on 1 lpm NC; cc3 23:15 BP 110 / 80; Pulse 99; Resp 20 S; Pulse Ox 97% on 1 lpm NC; cc3 04/14 00:05 BP 114 / 85; Pulse 93; Resp 21 S; Pulse Ox 97% on 1 lpm NC; cc3 04/13 19:09 Body Mass Index 21.93 (63.50 kg, 170.18 cm) aj1 ED Course: 04/13 18:52 Patient arrived in ED. sb2 18:52 Steve Frederick MD is Private Physician. sb2 19:08 Triage completed. aj1 19:09 Arm band placed on Patient placed in an exam room. aj1 19:11 Efrain Marks MD is Attending Physician. ma2 19:24 Samira Galvin is Primary Nurse. cc3 19:25 Patient has correct armband on for positive identification. Bed in low position. Call cc3 light in reach. Side rails up X2. Adult w/ patient. student services dean on. Pulse ox on. NIBP on. 19:55 Missed attempt(s): 20 gauge in right antecubital area. 22 gauge Bleeding controlled, jp3 band aid applied, catheter tip intact. 20:06 Radiology exam delayed due to lab results not completed at this time. (BUN/Creatinine). bq 20:18 CT completed. Patient moved to CT via stretcher. Patient moved back from CT. bq 20:21 XRAY Chest (1 view) In Process Unspecified. EDMS 20:30 EKG done, by ED staff, reviewed by Efrain Marks MD. jp3 20:45 Inserted saline lock: 20 gauge in left forearm, using aseptic technique. Blood cc3 collected. 22:22 Armida Wu MD is Hospitalizing Provider. ma2 22:33 CT Head Brain wo Cont In Process Unspecified. EDMS 22:34 CT completed. Patient moved back from CT. bq 04/14 00:10 No provider procedures requiring assistance completed. Patient admitted, IV remains in cc3 place. Administered Medications: 04/13 20:00 Drug: Zithromax 500 mg Route: PO; cc3 20:30 Follow up: Response: No adverse reaction cc3 20:10 Drug: DuoNeb (3:1) (2.5 mg - 0.5 mg) 3 ml Route: Nebulizer; cc3 20:30 Follow up: Response: No adverse reaction cc3 20:50 Drug: NS 0.9% 1000 ml Route: IV; Rate: 1 bolus; Site: left forearm; cc3 22:00 Follow up: Response: No adverse reaction; IV Status: Completed infusion; IV Intake: cc3 1000ml 20:52 Drug: MethylPrednisoLONE 125 mg Route: IVP; Site: left forearm; cc3 21:15 Follow up: Response: No adverse reaction cc3 20:55 Drug: Rocephin 1 grams Route: IV; Rate: bolus; Site: left forearm; cc3 21:30 Follow up: Response: No adverse reaction; IV Status: Completed infusion cc3 22:50 Drug: Lasix 40 mg Route: IVP; Site: left forearm; cc3 23:10 Follow up: Response: No adverse reaction cc3 23:15 Drug: Lasix 40 mg Route: IVP; Site: left forearm; cc3 23:30 Follow up: Response: No adverse reaction cc3 Intake: 22:00 IV: 1000ml; Total: 1000ml. cc3 Outcome: 22:24 Decision to Hospitalize by Provider. ma2 04/14 00:10 Admitted to Med/surg accompanied by tech, family with patient, via stretcher, room 228, cc3 with oxygen, with chart, Report called to JARRED Alicea Condition: stable Instructed on the need for admit, Demonstrated understanding of instructions. 00:38 Patient left the ED. cc3 Signatures: Dispatcher [employer] EDIsha Malik, RN RN aj1 Livia Bates Mohammad, MD MD ma2 Grecia Olmedo sb2 Geovanni Castaneda jp3 Samira Galvin cc3 Corrections: (The following items were deleted from the chart) 04/13 21:21 21:16 BP 129 / 90; Pulse 94bpm; Resp 20bpm; Pulse Ox 95% 2 lpm Nasal Cannula; cc3 cc3 04/14 04:21 00:05 BP 114 / 85; Pulse 93bpm; Resp 21bpm; Spontaneous; Pulse Ox 97% RA; cc3 cc3
--- NOTE | 2018-04-13 22:47 | RAD REPORT ---
EXAM DESCRIPTION: Vinod Single View04/13/2018 8:21 pm CLINICAL HISTORY: Cough COMPARISON: January 2018 FINDINGS: Mild bilateral interstitial lung opacities are present. Lungs are hyperaerated. Heart is m ildly to moderately enlarged IMPRESSION: Mild bilateral interstitial lung opacities likely represent interstitial pulmonary chase a
--- NOTE | 2018-04-13 22:50 | RAD REPORT ---
EXAM DESCRIPTION: CT - Head Brain Wo Cont - 04/13/2018 10:33 pm CLINICAL HISTORY: Headache COMPARISON: March 2017 TECHNIQUE: Computed axial tomography of the head was obtained. IV contrast was not requested. All CT scans are performed using dose optimization technique as appropriate and may include automated exposure control or mA/KV adjustment according to patient size. FINDINGS: An intracranial bleed is not seen . The ventricles are normal in caliber. No extra-axial fluid collection is noted. Moderate to large low-density areas within the right cerebr um represent old infarction. Fluid within the sinuses/ mastoids is not seen. IMPRESSION: No acute intracranial abnormality is seen. If patient's symptoms persist MRI of the bra in would be recommended.
--- NOTE | 2018-04-13 23:20 | P.HP ---
Certification for Inpatient Patient admitted to: Inpatient With expected LOS: >2 Midnights Practitioner: I am a practitioner with admitting privileges, knowledge of patient current condition, hospital course, and medical plan of care. Services: Services provided to patient in accordance with Admission requirements found in Title 42 Section 412.3 of the Code of Federal Regulations Patient History Date of Service: 04/13/18 Reason for admission: COPD exacerbation, CHF exacerbation History of Present Illness: Mr Espinal is a 77 years old male with history of Dementia, A.Fib, CVA with left side hemiplegia, COPD, chronic diastolic CHF, who start with productive cough, progressive SOB and headache about 1 week ago. No history of fever or chills. He has severe dysarthria (old) and is difficult to understand him, however he denied chest pain or palpitation. His sputum is creamy and thick. Lab work shows normal WBC count, creatinine elevated 1.4, trop I 0.06. No EKG changes, CXR shows bilateral bilateral infiltrate, awaiting radiology report. Allergies No Known Allergies Allergy (Verified 07/13/17 02:35) Home medications list reviewed: Yes Home Medications: Apixaban [Eliquis] 5 mg PO BID 01/14/18 Aspirin 81 mg PO DAILY 01/14/18 Atorvastatin Calcium [Lipitor*] 10 mg PO BEDTIME 01/14/18 Clindamycin HCl 300 mg PO Q6HR 01/14/18 Famotidine [Pepcid*] 20 mg PO DAILY 01/14/18 Methocarbamol 500 mg PO TID 01/14/18 Sennosides [Senna] 8.6 mg PO DAILY 01/14/18 Sulfamethoxazole/Trimethoprim [Bactrim 400-80 mg Tablet] 2 each PO Q12HR - Past Medical/Surgical History Diabetic: No -: History of CVA -: Hypertension -: Dementia -: Dyslipidemia -: COPD -: Atrial fibrillation -: Chronic anti coagulation -: Chronic sacral wound -: Chronic heel wound -: Right lower extremity peripheral arterial stent -: 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 Patient is fully dependent on family. - Family History Sister -: Cancer - Social History Smoking Status: Former smoker Alcohol use: No CD- Drugs: No Caffeine use: Yes Place of Residence: Home Review of Systems 10-point ROS is otherwise unremarkable Physical Examination - Physical Exam General: Alert, In no apparent distress, Demented HEENT: Atraumatic, Mucous membr. moist/pink, Sclerae nonicteric Neck: Supple, 2+ carotid pulse no bruit, No LAD, Without JVD or thyroid abnormality Respiratory: Normal air movement, Crackles/rales (bibasilar rales/crkackles) Cardiovascular: Normal S1 S2, No gallops Gastrointestinal: Normal bowel sounds, No tenderness Musculoskeletal: No tenderness Integumentary: No rashes Neurological: Normal tone, Normal affect, Abnormal speech (dysarthria), Abnormal strength (left upper and lower extremity hemiplegia) Lymphatics: No axilla or inguinal lymphadenopathy - Studies Laboratory Data (last 24 hrs) 04/13/18 20:45: PT 23.4 H, INR 1.97 04/13/18 20:45: WBC 8.4, Hgb 10.1 L, Hct 31.1 L, Plt Count 337 04/13/18 20:45: Sodium 138, Potassium 4.9, BUN 25 H, Creatinine 1.40 H, Glucose 99, Magnesium 2.3, Total Bilirubin 0.4, AST 28, ALT 53, Alkaline Phosphatase 119 H Assessment and Plan - Problems (Diagnosis) (1) COPD exacerbation Current Visit: Yes Status: Acute (2) Acute on chronic diastolic CHF (congestive heart failure) Current Visit: Yes Status: Acute (3) Dementia Current Visit: No Status: Acute Qualifiers: Dementia type: unspecified type Dementia behavioral disturbance: without behavioral disturbance Qualified Code(s): F03.90 - Unspecified dementia without behavioral disturbance - Plan The patient will be admitted to the hospital due to COPD exacerbation and acute on chronic diastolic CHF. Will order procalcitonin, lactate, IV steroids, breathing treatments. IV diuretics. - Advance Directives Does patient have a Living Will: Yes Does patient have a Durable POA for Healthcare: Yes - Code Status/Comfort Care Code Status Assessed: Yes Code Status: Do Not Resuscitate
[2018-04-14] MEDS ORDERED: ONDANSETRON 4 MG/2 ML VIAL IV PRN (00:52)
[2018-04-14] MEDS: METHYLPREDNISOLONE 40 MG INJ IV SCH ×3 (01:43→16:53)
[2018-04-14 02:47] LABS: Absolute Lymphocytes (CBC) 0.3 K/uL (0.7-4.9); Absolute Monocytes 0.1 K/uL (0.1-1.3); Absolute Neutrophil 6.3 K/uL (1.8-8.0); Basophils % 0.3 % (0-1.3); Eosinophils % 0.2 % (0-4.4); Hematocrit 32.7 % (39.6-49.0); Lymphocytes % 4.5 % (15.3-44.8); MCH 27.6 pg (27.0-35.0); MCV 84.1 fL (80-100); MPV 8.2 fL (7.6-11.3); Monocytes % 1.4 % (3.3-12.3); RBC Red Blood Cell Count 3.89 M/uL (4.33-5.43)
[2018-04-14 03:01] LABS: Potassium 4.6 mmol/L (3.5-5.1)
[2018-04-14 03:05] LABS: Blood Morphology Comment NOT SEEN (NOT SEEN); Platelet Estimate ADEQ; Urine White Blood Cell Casts OK
--- NOTE | 2018-04-14 06:07 | EKG ---
Test Date: 2018-04-13 Test Time: 20:24:50 [employer]/Export Freight Forwarder: DELMY MEASUREMENT RESULTS: Intervals: Rate: 89 SC: 192 QRSD: 104 QT: 386 QTc: 469 Pinch: P: 99 SC: 192 QRS: 69 T: -15 INTERPRETIVE STATEMENTS: Normal sinus rhythm with sinus arrhythmia Nonspecific T wave abnormality Abnormal ECG Compared to ECG 01/16/2018 07:42:57 T-wave abnormality now present Atrial premature complex(es) no longer present Left ventricular hypertrophy no longer present Myocardial infarct finding no longer present Electronically Signed On 04-14-18 06:06:58 DISABILITY RATER by Cesar Estrella
[2018-04-14] MEDS ORDERED: FUROSEMIDE 40 MG/4 ML VIAL IV SCH ×2 (09:00)
[2018-04-14] MEDS ORDERED: CEFTRIAXONE 1 GM/NS 50 ML 1 GM/50 ML BAG IV SCH (09:00)
[2018-04-14] MEDS: AZITHROMYCIN IV 500 MG in NA CHLORIDE 0.9% 250 ML IVPB SCH (09:39)
[2018-04-14] MEDS: CEFTRIAXONE/SWI 1gm 1 GM/10 ML SYR IVP SCH (09:40)
[2018-04-14] MEDS ORDERED: NA CHLORIDE 0.9% 250 ML IV PRN (12:18)
[2018-04-14] MEDS ORDERED: NA CHLORIDE 0.9% 250 ML ONE (12:31)
[2018-04-14] MEDS ORDERED: PNEUMOCOCCAL VACCINE 0.5 ML IMVAC ONE (14:00)
[2018-04-14] MEDS ORDERED: INFLUENZA VACCINE (for 3y+) 0.5 ML DOSE IMVAC ONE (14:00)
[2018-04-14] MEDS: SENOSIDES 8.6 MG TAB PO SCH (16:53)
[2018-04-14] MEDS: APIXABAN 5 MG TABLET PO SCH ×2 (16:53→21:34)
[2018-04-14] MEDS: ASPIRIN 81 MG CHEWABLE TABLET PO SCH (16:53)
[2018-04-14] MEDS: FAMOTIDINE 20 MG TAB PO SCH (16:53)
--- NOTE | 2018-04-14 19:04 | PN ---
Date of Progress Note: 04/14/2018 Subjective: Patient seen and examined. Chart reviewed and case discussed with RN. The patient did have episode of hypotension this morning, improved with IV fluid challenge. The patient at baseline does have severe dysarthria from a CVA. Denies any significant shortness of breath. The patient is currently asymptomatic. Code Status: Do not resuscitate. Medications: List reviewed. Physical Examination: Vital Signs: Temperature 99.1, heart rate 94, blood pressure 136/58, respirations 20, O2 93% on 2 L via nasal cannula. Blood pressure dropped to 85/53 after Lasix. General: Awake, alert, oriented x3, elderly male, somewhat ill-appearing. CV: S1, S2. Regular rate and rhythm. Peripheral pulses weak bilaterally. Respiratory: Diminished breath sounds. No wheezing or stridor. Gastrointestinal: Abdomen is soft, nontender, nondistended. Positive bowel sounds. Extremities: No clubbing, cyanosis, or edema. Skin: Right foot second toe amputation with wound VAC in place. Neuro: Cranial nerves 2 through 12 intact grossly. No focal neurological deficit. Speech is dysart hric, however, comprehensible. Laboratory Data: Sodium 138, potassium 4.6, chloride 104, CO2 26, BUN 24, creatinine 1.5, glucose 13 1, calcium 8.4. Troponin 0.06, 0.06, and third set is also 0.06. WBC 6.8, hemoglobin and hematocrit 10.8 and 32.7, platelets 328, neutrophils 93%. Assessment: A 77-year-old male with: 1.Acute chronic obstructive pulmonary disease exacerbation. The patient on supplemental oxygen. Co ntinue nebulized treatments and steroids. We will continue to monitor pulse ox. 2.Acute on chronic diastolic heart failure. Continue Lasix. We will decrease dose due to hypotensi on. Continue congestive heart failure guidelines. Monitor I's and O's, fluid restriction, and daily weights. 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 4.History of cerebrovascular accident with residual dysarthria. 5.Dyslipidemia. Continue statin. 6.History of atrial fibrillation, on Eliquis. 7.Peripheral arterial disease. 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 8.Gastrointestinal and deep venous thrombosis prophylaxis addressed. Plan: Continue to monitor closely. Likely discharge in the next 24 to 48 hours. SA/MODL Voice ID: [id number] Report ID: [id number]
[2018-04-14] MEDS: TRAZODONE 50 MG TABLET PO PRN (21:34)
[2018-04-14] MEDS: ATORVASTATIN 10 MG TAB PO SCH (21:34)
[2018-04-15] MEDS: METHYLPREDNISOLONE 40 MG INJ IV SCH ×3 (00:55→20:10)
[2018-04-15 06:32] LABS: Absolute Lymphocytes (CBC) 0.6 K/uL (0.7-4.9); Absolute Monocytes 0.2 K/uL (0.1-1.3); Absolute Neutrophil 3.9 K/uL (1.8-8.0); Basophils % 0.2 % (0-1.3); Hematocrit 28.6 % (39.6-49.0); Lymphocytes % 12.2 % (15.3-44.8); MCH 28.1 pg (27.0-35.0); MCV 83.2 fL (80-100); MPV 8.6 fL (7.6-11.3); Monocytes % 5.1 % (3.3-12.3); RBC Red Blood Cell Count 3.43 M/uL (4.33-5.43)
[2018-04-15 06:33] LABS: Bilirubin Total 0.4 mg/dL (0.2-1.0); Potassium 4.4 mmol/L (3.5-5.1); Protein, Total 6.8 g/dL (6.4-8.2)
[2018-04-15] MEDS: CEFTRIAXONE/SWI 1gm 1 GM/10 ML SYR IVP SCH (09:00)
[2018-04-15] MEDS: AZITHROMYCIN IV 500 MG in NA CHLORIDE 0.9% 250 ML IVPB SCH (09:48)
[2018-04-15] MEDS: FAMOTIDINE 20 MG TAB PO SCH (09:54)
[2018-04-15] MEDS: FUROSEMIDE 20 MG/ 2ML VIAL IV SCH (09:54)
[2018-04-15] MEDS: APIXABAN 5 MG TABLET PO SCH ×2 (09:55→20:11)
[2018-04-15] MEDS: SENOSIDES 8.6 MG TAB PO SCH (09:55)
[2018-04-15] MEDS: ASPIRIN 81 MG CHEWABLE TABLET PO SCH (09:56)
--- NOTE | 2018-04-15 13:33 | RAD REPORT ---
EXAM DESCRIPTION: RAD - Chest Single View - 04/15/2018 1:18 pm CLINICAL HISTORY: CHF COMPARISON: April 13 TECHNIQUE: AP portable chest image was obtained 1259 hours . FINDINGS: Lungs are fibrotic as a baseline. Vascular engorgement and interstitial edema pattern seen April 13 has significantly improved. There is remnant infiltrate or edema in the lower right lung field. No progressive process seen. Heart size is stable. Trachea is midline. No measurable pleural effusion and no pneumothorax. No acute bony abnormality seen. No acute aortic findings suspected. IMPRESSION: Significant improvement in the vascular engorgement and interstitial infiltrates/edema p attern. Remnant interstitial edema or infiltrate seen in the right base.
[2018-04-15] MEDS: ACETAMINOPHEN 500 MG TAB PO PRN (14:04)
[2018-04-15] MEDS: CARVEDILOL 6.25 MG TAB PO SCH ×2 (15:22→20:10)
[2018-04-15] MEDS ORDERED: CARVEDILOL 3.125 MG TAB PO ONE (17:00)
[2018-04-15] MEDS ORDERED: JEVITY 1.2 CAL LIQUID 1,000 ML BOT FT SCH (18:00)
[2018-04-15] MEDS: TRAZODONE 50 MG TABLET PO PRN (20:10)
[2018-04-15] MEDS: ATORVASTATIN 10 MG TAB PO SCH (20:10)
[2018-04-15] MEDS: PROMOD 30 ML DOSE PO SCH (20:11)
[2018-04-16 06:09] LABS: Absolute Lymphocytes (CBC) 0.7 K/uL (0.7-4.9); Absolute Monocytes 0.4 K/uL (0.1-1.3); Absolute Neutrophil 5.6 K/uL (1.8-8.0); Hematocrit 30.5 % (39.6-49.0); Lymphocytes % 10.5 % (15.3-44.8); MCH 27.6 pg (27.0-35.0); MCV 82.8 fL (80-100); MPV 8.6 fL (7.6-11.3); Monocytes % 5.5 % (3.3-12.3); RBC Red Blood Cell Count 3.68 M/uL (4.33-5.43)
[2018-04-16 06:22] LABS: Bilirubin Total 0.3 mg/dL (0.2-1.0); Magnesium 2.7 mg/dL (1.8-2.4); Phosphorus 4.5 mg/dL (2.5-4.9); Potassium 4.4 mmol/L (3.5-5.1); Protein, Total 6.7 g/dL (6.4-8.2)
[2018-04-16] MEDS: PROMOD 30 ML DOSE PO SCH ×2 (08:54→20:54)
[2018-04-16] MEDS: APIXABAN 5 MG TABLET PO SCH ×2 (08:54→20:54)
[2018-04-16] MEDS: ASPIRIN 81 MG CHEWABLE TABLET PO SCH (08:54)
[2018-04-16] MEDS: FAMOTIDINE 20 MG TAB PO SCH (08:54)
[2018-04-16] MEDS: SENOSIDES 8.6 MG TAB PO SCH (08:54)
[2018-04-16] MEDS: METHYLPREDNISOLONE 40 MG INJ IV SCH ×2 (08:54→20:54)
[2018-04-16] MEDS: CARVEDILOL 6.25 MG TAB PO SCH ×2 (09:00→20:54)
[2018-04-16] MEDS: FUROSEMIDE 20 MG/ 2ML VIAL IV SCH (09:01)
--- NOTE | 2018-04-16 11:25 | P.PN ---
Subjective Date of Service: 04/16/18 Chief Complaint: COPD exacerbation, CHF exacerbation Subjective: No new changes, No C/O voiced, Tolerating diet Patient seen and examined at bedside. No family at bedside. Chart reviewed and case discussed with nursing staff. Had another episode of V-tach overnight noted on tele. Denies any symptoms Review of Systems As noted Physical Examination - Vital Signs Temperature: 98.4 F Blood Pressure: 111/85 Pulse: 112 Respirations: 22 Pulse Ox (%): 96 - Physical Exam General: Alert, In no apparent distress, Other (Elderly, ill-aapearing) HEENT: Atraumatic, PERRLA, EOMI Neck: Supple, JVD not distended Respiratory: Clear to auscultation bilaterally, Normal air movement Cardiovascular: Regular rate/rhythm, Normal S1 S2 Gastrointestinal: Normal bowel sounds, No tenderness Musculoskeletal: No tenderness Integumentary: No rashes Neurological: Normal speech, Normal tone, Normal affect Lymphatics: No axilla or inguinal lymphadenopathy Assessment And Plan - Plan This is a 77-year-old male with: Acute chronic obstructive pulmonary disease exacerbation. Continue supplemental oxygen. Continue nebulized treatments and steroids. We will continue to monitor pulse ox. Acute on chronic diastolic heart failure. Continue Lasix at decreased dose of 20 mg b.i.d. Continue congestive heart failure guidelines. Monitor I's and O's, fluid restriction, and daily weights. Episodes of V-tach, tachycardia Started patient on Coreg. Continues to have episodes of V-tach overnight, asymptomatic. 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 History of cerebrovascular accident with residual dysarthria. Dyslipidemia. Continue statin. History of atrial fibrillation, on Eliquis. Peripheral arterial disease. 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 DVT prophylaxis: Eliquis GI prophylaxis: Not needed Diet: Heart healthy Disposition: Continue to monitor. Pending cardiology evaluation. Likely discharge in the next 24-48 hr. Physician Review: Patient Assessed, Agree with Above Assessment and Plan Time Spent Managing PTS Care (In Minutes): 55
[2018-04-16] MEDS: ACETAMINOPHEN 500 MG TAB PO PRN (12:19)
--- NOTE | 2018-04-16 12:52 | DS ---
Date of Discharge: 04/15/2018 Admitting Diagnoses: 1.Acute on chronic diastolic heart failure. 2.Acute chronic obstructive pulmonary disease exacerbation. 3.Dementia. Discharge Diagnoses: 1.Acute chronic obstructive pulmonary disease exacerbation, improved. 2.Acute on chronic diastolic heart failure, improving. 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 4.History of cerebrovascular accident with residual dysarthria. 5.Dyslipidemia. 6.History of atrial fibrillation, on Eliquis. 7.Peripheral arterial disease. Currently with wound VAC in place. 8.Recent right foot arterial wound with wound VAC in place. Hospital Course: The patient is a 77-year-old male with past medical history of dementia, atrial fib rillation, CVA, left-sided weakness, COPD, chronic diastolic heart failure, who comes in with chronic obstructive pulmonary disease and congestive heart failure exacerbation. The patient was nontoxic, not septic, lactate and procalcitonin negative. Chest x-ray showed congestion. The patient did have some mild elevation of his troponin at 0.06, likely related to his acute congestive heart failure an d chronic obstructive pulmonary disease exacerbation. The patient was started on supplemental oxygen , breathing treatments, and IV steroids. The patient was also diuresed with IV Lasix. The patient d id have improvement in his symptoms. His fluid balance was negative. He did have some elevation of his kidney function, which is acute on chronic. His last EF shows 62% diastolic dysfunction. The reji burger does take anticoagulation for his atrial fibrillation. His repeat chest x-ray did show improve ment. The patient was then weaned off oxygen. He was doing well over the course of the hospital sta y. His breathing had improved significantly. The patient was then cleared for discharge. He was th en sent home in a stable condition. Activity: As tolerated. Medications: As per medication reconciliation list. Followup: Follow up with primary care physician in 2 to 3 days. Return to ER for worsening conditio n. Diet: Low-sodium, fluid-restricted diet. Activity: Fall precautions. Physical Examination: General: Awake, alert, oriented, no acute distress. CV: S1, S2. Peripheral pulses present. Respiratory: Moving air well bilaterally. No wheezing. Gastrointestinal: Abdomen is soft, nontender, nondistended. Positive bowel sounds. Extremities: No clubbing, cyanosis, edema. Skin: Right foot wound VAC in place. Neuro: The patient has severe dysarthria and some left-sided weakness from a CVA. Total time spent discharging the patient was 37 minutes. MIA Voice ID: [id number] Report ID: [id number]
[2018-04-16] MEDS: NA CHLORIDE 0.9% 1,000 ML IV SCH (17:34)
[2018-04-16] MEDS ORDERED: NA CHLORIDE 0.9% 1,000 ML ONE (17:40)
[2018-04-16] MEDS: ATORVASTATIN 10 MG TAB PO SCH (20:54)
[2018-04-17 07:35] LABS: Absolute Lymphocytes (CBC) 0.7 K/uL (0.7-4.9); Absolute Monocytes 0.4 K/uL (0.1-1.3); Absolute Neutrophil 5.6 K/uL (1.8-8.0); Basophils % 0.2 % (0-1.3); Hematocrit 31.7 % (39.6-49.0); Lymphocytes % 10.4 % (15.3-44.8); MCH 27.9 pg (27.0-35.0); MPV 8.5 fL (7.6-11.3); Monocytes % 5.8 % (3.3-12.3); RBC Red Blood Cell Count 3.82 M/uL (4.33-5.43)
[2018-04-17 07:46] LABS: Potassium 4.1 mmol/L (3.5-5.1)
[2018-04-17] MEDS: PROMOD 30 ML DOSE PO SCH ×2 (09:00→22:53)
[2018-04-17] MEDS: METHYLPREDNISOLONE 40 MG INJ IV SCH ×2 (10:17→22:52)
[2018-04-17] MEDS: FUROSEMIDE 20 MG/ 2ML VIAL IV SCH (10:17)
[2018-04-17] MEDS: NA CHLORIDE 0.9% 1,000 ML IV SCH ×2 (10:30→22:52)
[2018-04-17] MEDS: APIXABAN 5 MG TABLET PO SCH ×2 (10:31→22:53)
[2018-04-17] MEDS: SENOSIDES 8.6 MG TAB PO SCH (10:31)
[2018-04-17] MEDS: FAMOTIDINE 20 MG TAB PO SCH (10:31)
[2018-04-17] MEDS: ASPIRIN 81 MG CHEWABLE TABLET PO SCH (10:31)
[2018-04-17] MEDS: CARVEDILOL 6.25 MG TAB PO SCH ×2 (10:32→22:53)
--- NOTE | 2018-04-17 11:05 | RAD REPORT ---
EXAM DESCRIPTION: RAD - Barium Swallow Modified - 04/17/2018 9:30 am CLINICAL HISTORY: Caps COMPARISON: June 2017 TECHNIQUE: The patient was given liquid, semi-solid and solid forms of barium. Lateral view fluorosc opic imaging was performed in conjunction with speech pathology service. FINDINGS: There were 15 cine loop acquisitions obtained. Fluoro time was 3 minutes and 2 seconds. Laryngeal penetration was observed on the examination. Contrast extended into the valleculae and piri form sinuses prior to initiation of swallowing. Patient showed a delayed swallow reflex. IMPRESSION: Modified barium swallow findings as detailed above and on speech pathology report.
--- NOTE | 2018-04-17 13:16 | CON ---
Reason For Consult: Ventricular tachycardia. History Of Present Illness: Mr. Espinal was brought to the hospital because his mental status seeme d to be getting worse. He has severe dementia. We think it is a combination of Alzheimer disease an d perhaps vascular dementia as well. He is in chronic AFib, takes Eliquis. He has deteriorated to t he point where he gets out of bed very rarely. He has a wound in his foot and is on a wound VAC. He was being prepared for discharge back to home when telemetry monitoring indicated runs of ventricula r tachycardia. He has been here for several days, probably had about 8 runs. Each one is in a setti ng of AFib and it looks to me like it is very possible it is AFib with aberrancy rather than ventricu lar tachycardia. As soon as it slows down a little bit, the complex narrows again. It looks like a typical right bundle-branch block aberrancy. He has had an echocardiogram fairly recently. Given th e fact that none of this is sustained when it is present, it is irregularly irregular. Right bundle branch block seems to be AFib with aberrancy. I do not recommend we do another workup for his heart. He would not be a candidate for getting a defibrillator or pacemaker. I do not think he needs any other therapy other than what he is getting. I believe he could be discharged home. Physical Examination: General: He is 5 feet and 7 inches, 129 pounds. He is alert, confused, speaks with a garbled voice. Lungs: Clear. Heart: Irregularly irregular. Extremities: Reveal diminished distal pulses. Impression: The patient's arrhythmia is not a reason to keep him in the hospital any longer. He cou ld be discharged when he is otherwise ready to be discharged. YOLANDA/EBENEZER Voice ID: [id number] Report ID: [id number]
[2018-04-17] MEDS: ACETAMINOPHEN 500 MG TAB PO PRN (14:37)
--- NOTE | 2018-04-17 17:07 | P.PN ---
Subjective Date of Service: 04/17/18 Chief Complaint: COPD exacerbation, CHF exacerbation Subjective: No new changes, No C/O voiced Patient seen and examined at bedside. No family at bedside. Chart reviewed and case discussed with nursing staff. Had another episode of V-tach overnight noted on tele. Denies any symptoms Review of Systems As noted Physical Examination - Vital Signs Temperature: 97.5 F Blood Pressure: 105/70 Pulse: 71 Respirations: 19 Pulse Ox (%): 100 - Physical Exam General: Alert, In no apparent distress HEENT: Atraumatic, PERRLA, EOMI Neck: Supple, JVD not distended Respiratory: Clear to auscultation bilaterally, Normal air movement Cardiovascular: Regular rate/rhythm, Normal S1 S2 Gastrointestinal: Normal bowel sounds, No tenderness Musculoskeletal: No tenderness Integumentary: No rashes Neurological: Normal speech, Normal tone, Normal affect Lymphatics: No axilla or inguinal lymphadenopathy Assessment And Plan - Plan This is a 77-year-old male with: Acute chronic obstructive pulmonary disease exacerbation. Continue supplemental oxygen. Continue nebulized treatments and steroids. We will continue to monitor pulse ox. Acute on chronic diastolic heart failure. Continue Lasix at decreased dose of 20 mg b.i.d. Continue congestive heart failure guidelines. Monitor I's and O's, fluid restriction, and daily weights. Episodes of V-tach, tachycardia Started patient on Coreg, continue. Cardiology consulted, Recommendations appreciated. Alzheimer dementia without behavioral disturbance, early onset. History of cerebrovascular accident with residual dysarthria. Dyslipidemia. Continue statin. History of atrial fibrillation, on Eliquis. Peripheral arterial disease. 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 DVT prophylaxis: Eliquis GI prophylaxis: Not needed Diet: Heart healthy Disposition: Continue to monitor. Family deciding if they would like to do hospice; Discharge home in the morning. Physician Review: Patient Assessed, Agree with Above Assessment and Plan
[2018-04-17] MEDS: IPRATROPIUM BROM 0.5MG/2.5ML NEB PRN (17:25)
[2018-04-17] MEDS: ALBUTEROL 2.5 MG/3 ML NEB SOL NEB PRN (17:25)
[2018-04-17] MEDS: TRAZODONE 50 MG TABLET PO PRN (22:53)
[2018-04-17] MEDS: ATORVASTATIN 10 MG TAB PO SCH (22:53)
[2018-04-18] MEDS: IPRATROPIUM BROM 0.5MG/2.5ML NEB PRN (02:03)
[2018-04-18] MEDS: ALBUTEROL 2.5 MG/3 ML NEB SOL NEB PRN (02:03)
[2018-04-18] MEDS: PROMOD 30 ML DOSE PO SCH (09:00)
[2018-04-18] MEDS: METHYLPREDNISOLONE 40 MG INJ IV SCH (09:59)
[2018-04-18] MEDS: FUROSEMIDE 20 MG/ 2ML VIAL IV SCH (09:59)
[2018-04-18] MEDS: APIXABAN 5 MG TABLET PO SCH (10:00)
[2018-04-18] MEDS: ASPIRIN 81 MG CHEWABLE TABLET PO SCH (10:00)
[2018-04-18] MEDS: SENOSIDES 8.6 MG TAB PO SCH (10:00)
[2018-04-18] MEDS: FAMOTIDINE 20 MG TAB PO SCH (10:00)
[2018-04-18] MEDS: CARVEDILOL 6.25 MG TAB PO SCH (10:00)
--- NOTE | 2018-04-18 16:58 | P.DS ---
Admission Date: 04/13/18 Discharge Date: 04/18/18 Disposition: HOSPICE-HOME Discharge Condition: FAIR Reason for Admission: COPD exacerbation, CHF exacerbation Consultations: Cardiology, Dr. Estrella Hospital Course: The patient is a 77-year-old male with past medical history of dementia, atrial fibrillation, CVA, left-sided weakness, COPD, chronic diastolic heart failure, who comes in with chronic obstructive pulmonary disease and congestive heart failure exacerbation. The patient was nontoxic, not septic, lactate and procalcitonin negative. Chest x-ray showed congestion. The patient did have some mild elevation of his troponin at 0.06, likely related to his acute congestive heart failure and chronic obstructive pulmonary disease exacerbation. The patient was started on supplemental oxygen, breathing treatments, and IV steroids. The patient was also diuresed with IV Lasix. The patient did have improvement in his symptoms. His fluid balance was negative. He did have some elevation of his kidney function, which is acute on chronic. His last EF shows 62% diastolic dysfunction. The patient does take anticoagulation for his atrial fibrillation. His repeat chest x-ray did show improvement. The patient was then weaned off oxygen. He was doing well over the course of the hospital stay. His breathing had improved significantly. The patient was then cleared for discharge. Prior to discharge, he was noted to have V-tach on tele, discharge was held. He he was also tachycardic and was started on Coreg. Cardiology was consulted. His heart rate improved, he was cleared from cardiology point of view for discharge. Family had a meeting with hospice ([facility]) and decided to do home hospice. He was discharged home in a stable manner where hospice would evaluate patient and proceed further. Vital Signs/Physical Exam: Temp Pulse Resp BP Pulse Ox 97.6 F 64 18 105/80 93 04/18/18 08:00 04/18/18 10:00 04/18/18 08:00 04/18/18 10:00 04/18/18 08:00 General: Alert, In no apparent distress HEENT: Atraumatic, PERRLA, EOMI Neck: Supple, JVD not distended Respiratory: Clear to auscultation bilaterally, Normal air movement Cardiovascular: Regular rate/rhythm, Normal S1 S2 Gastrointestinal: Normal bowel sounds, No tenderness Musculoskeletal: No tenderness Integumentary: No rashes Neurological: Normal speech, Normal tone, Normal affect Lymphatics: No axilla or inguinal lymphadenopathy Laboratory Data at Discharge: WBC 6.7 K/uL (4.3-10.9) 04/17/18 07:10 Hgb 10.7 g/dL (13.6-17.9) L 04/17/18 07:10 Hct 31.7 % (39.6-49.0) L 04/17/18 07:10 Plt Count 297 K/uL (152-406) 04/17/18 07:10 PT 23.4 SECONDS (9.5-12.5) H 04/13/18 20:45 INR 1.97 04/13/18 20:45 Sodium 140 mmol/L (136-145) 04/17/18 07:13 Potassium 4.1 mmol/L (3.5-5.1) 04/17/18 07:13 BUN 62 mg/dL (7-18) H 04/17/18 07:13 Creatinine 1.60 mg/dL (0.55-1.3) H 04/17/18 07:13 Glucose 117 mg/dL (74-106) H 04/17/18 07:13 Phosphorus 4.5 mg/dL (2.5-4.9) 04/16/18 05:37 Magnesium 2.7 mg/dL (1.8-2.4) H 04/16/18 05:37 Total Bilirubin 0.3 mg/dL (0.2-1.0) 04/16/18 05:37 AST 23 U/L (15-37) 04/16/18 05:37 ALT 46 U/L (12-78) 04/16/18 05:37 Alkaline Phosphatase 98 U/L (45-117) 04/16/18 05:37 Troponin I 0.06 ng/mL (0.0-0.045) H 04/14/18 09:10 Home Medications: Apixaban [Eliquis] 5 mg PO BID 01/14/18 Aspirin 81 mg PO DAILY 01/14/18 Atorvastatin Calcium [Lipitor*] 10 mg PO BEDTIME 01/14/18 Famotidine [Pepcid*] 20 mg PO DAILY 01/14/18 Methocarbamol 500 mg PO TID 01/14/18 Sennosides [Senna] 8.6 mg PO DAILY 01/14/18 Multivitamin [Multiple Vitamins] 1 tab PO DAILY 04/14/18 Furosemide 20 mg PO DAILY #30 tablet 04/15/18 Potassium Chloride 8 meq PO DAILY #30 tablet.er 04/15/18 predniSONE [Deltasone*] 10 mg PO BID #14 tab 04/15/18 Carvedilol [Coreg*] 6.25 mg PO DAILY #30 tab 04/18/18 New Medications: Carvedilol [Coreg*] 6.25 mg PO DAILY #30 tab Furosemide 20 mg PO DAILY #30 tablet Potassium Chloride 8 meq PO DAILY #30 tablet.er predniSONE [Deltasone*] 10 mg PO BID #14 tab Patient Discharge Instructions: With primary care physician in 2-3 days. Return to ER for worsening condition Diet: Low sodium (1500 mL fluid restriction) Activity: Fall precautions
--- NOTE | 2018-04-19 03:46 | PN ---
Mr. Espinal was seen by Dr. Estrella for possible ventricular tachycardia versus atrial fibrillation w ith aberrancy. Overnight, he did not have any more atrial fibrillation with aberrancy or ventricular tachycardia. He is asymptomatic. He has diuresed well from a congestive heart failure standpoint. We recommend that he goes home on Eliquis 5 mg b.i.d. We will see him in the office in the next 2 w perez. IMELDA/EBENEZER Voice ID: [id number] Report ID: [id number]
== END 2018-04-18 11:04 | disposition hospice, home (50) | DRG 292 ==
LOC: ER 18:50 → ERHOLD 23:00 → 2ND 04-14 00:15
PROVIDERS: ADMIT Internal Medicine; ATTEND Family Medicine
DX: I11.0 Hypertensive heart disease with heart failure (principal); J44.1 Chronic obstructive pulmonary disease with (acute) exacerbation; I69.354 Hemiplegia and hemiparesis following cerebral infarction affecting left non-dominant side; I47.2 Ventricular tachycardia; I50.33 Acute on chronic diastolic (congestive) heart failure; Z66 Do not resuscitate; Z51.5 Encounter for palliative care; Z79.01 Long term (current) use of anticoagulants; E78.5 Hyperlipidemia, unspecified; Z87.891 Personal history of nicotine dependence; I95.9 Hypotension, unspecified; I69.322 Dysarthria following cerebral infarction; G30.0 Alzheimer's disease with early onset; F02.80 Dementia in other diseases classified elsewhere, unspecified severity, without behavioral disturbance, psychotic disturbance, mood disturbance, and anxiety; I73.9 Peripheral vascular disease, unspecified; F01.50 Vascular dementia, unspecified severity, without behavioral disturbance, psychotic disturbance, mood disturbance, and anxiety; I48.2 Chronic atrial fibrillation
CPT/HCPCS: 36415; 70450; 71045; 74230; 80048; 80053; 80076; 83605; 83735; 83880; 84100; 84145; 84484; 85025; 85610; 92526; 92610; 92611; 93005; 94640; 94760; 96361; 96365; 96375; 99285; J0456; J0696; J1940; J2920; J2930; J7030